=== PATIENT | male | born 1945 | race Caucasian/White ===

== ENCOUNTER → 2020-10-11 14:00 | Outpatient (BNVA) | payer MEDICARE, SELFPAY | PROVIDERS: PCP Family Medicine; Referring Provider Family Medicine; Visit Provider Internal Medicine Pulmonary Disease | DX: J44.9 Chronic obstructive pulmonary disease, unspecified (principal); Z99.81 Dependence on supplemental oxygen; Z87.891 Personal history of nicotine dependence | CPT/HCPCS: 99212 ==

== ENCOUNTER → 2020-11-29 10:42 | Outpatient (BNVA) | payer MEDICARE, SELFPAY | PROVIDERS: PCP Family Medicine; Visit Provider Internal Medicine | DX: I25.10 Atherosclerotic heart disease of native coronary artery without angina pectoris (principal); J44.9 Chronic obstructive pulmonary disease, unspecified; Z99.81 Dependence on supplemental oxygen; I10 Essential (primary) hypertension; E78.5 Hyperlipidemia, unspecified | CPT/HCPCS: 93005; 99212 ==

== ENCOUNTER 2020-12-16 13:11 | Outpatient (REF) | payer MEDICARE, SELFPAY ==
[2020-12-16 14:03] LABS: MANUAL DIFF FLAG NO
[2020-12-16 14:09] LABS: Basophils Percent Auto 0.3 % (0-2); Eosinophils Absolute Auto 0.3 X10*3/uL (0.0-0.4); Eosinophils Percent Auto 2.7 % (0-4); Hematocrit 45.4 % (42-52); Hemoglobin 14.6 g/dl (14.0-18.0); Imm Gran Abs Auto 0.03 X10*3/uL (0.00-0.03); Imm Gran Pct Auto 0.3 % (0.0-0.4); Lymphocytes Absolute Auto 1.9 X10*3/uL (1.2-4.9); Lymphocytes Percent Auto 18.9 % (20-40); Mean Corpuscular HGB Conc 32.2 g/dl (31.0-36.0); Mean Corpuscular Hemoglobin 31.7 pg (27.0-33.0); Mean Corpuscular Volume 98.5 fL (80-98); Mean Platelet Volume 8.9 fL (9.4-12.4); Monocytes Absolute Auto 0.8 X10*3/uL (0.1-1.2); Monocytes Percent Auto 7.7 % (2-11); Neutrophils Percent Auto 70.1 % (45-73); Platelet Count 480 X10*3/uL (160-400); Red Blood Count 4.61 X10*6/uL (4.60-5.80); Red Cell Distribution Width 15.4 % (11.0-16.0)
[2020-12-16 14:38] LABS: Anion Gap 16 (12-20); Blood Urea Nitrogen 25 mg/dL (9-16); Carbon Dioxide 21 mmol/L (22-29); Chloride 108 mmol/L (96-108); Estimated Glomerular Filt Rate > 60; Potassium 4.6 mmol/l (3.3-5.1); Sodium 140 mmol/L (135-145)
== END 2020-12-16 13:12 | disposition home or self-care (01) ==
LOC: HO.HMGCLDS 13:11
PROVIDERS: PCP Family Medicine; Visit Provider Family Medicine
DX: I10 Essential (primary) hypertension (principal); R06.02 Shortness of breath
CPT/HCPCS: 36415; 80051; 82565; 84520; 85025

== ENCOUNTER 2020-12-28 12:21 | Inpatient (IN) | payer MEDICARE, SELFPAY ==
[2020-12-28] VITALS (7 sets, daily range): BP systolic 122–161; BP diastolic 65–93; PULSE 85–97; RESP 18–26; TEMP 36.6–37.4; O2SAT 90–94; BMI 31.0
--- NOTE | ~2020-12-28 | CT_ITS ---
EXAMINATION: CT SINUS WITHOUT CONTRAST CLINICAL INFORMATION: Sinusitis COMPARISON: None TECHNIQUE: Multidetector volumetric imaging of the paranasal sinuses performed without IV contrast. Coronal and sagittal reformatted images are obtained and reviewed. This CT examination was performed using dose optimization techniques as appropriate, variously including the following: *Automated exposure control *Adjustment of mA and/or kV according to patient size (this includes techniques or standardized protocols for targeted exams where dose is matched to indication/reason for exam; i.e. extremities or head) *Use of iterative reconstruction technique DLP: 157 mGy-cm FINDINGS: FRONTAL SINUSES AND DRAINAGE PATHWAYS: Normal. MAXILLARY SINUSES AND DRAINAGE PATHWAYS: Normal. The infundibula are patent. ETHMOID SINUSES: Normal. The ethmoid roofs are symmetric. SPHENOID SINUSES AND DRAINAGE PATHWAYS: Normal. The sphenoid ostia are patent. The carotid canals are covered by bone. NASAL CAVITY/NASOPHARYNX: The nasal cavity is clear. There is leftward nasal septal deviation/spurring. The nasopharynx is symmetric. ADDITIONAL RELEVANT FINDINGS: Multiple teeth are absent.. The TMJs articulate normally. The orbits and skull base soft tissues are unremarkable. The middle ear cavities and mastoid air cells are clear. Limited evaluation demonstrates no acute intracranial findings. CT/CT sinus wo con IMPRESSION: The paranasal sinuses are clear.
--- NOTE | 2020-12-28 12:44 | XR_ITS ---
EXAMINATION: XR CHEST CLINICAL INFORMATION: Fever and shortness of breath COMPARISON: October 21, 2019 TECHNIQUE: AP portable view of the chest was obtained. FINDINGS: There are a few faint patchy regions of density seen within the lower lungs bilaterally which may be inflammatory or infectious in etiology. There is diminished vascularity seen within the upper lobes bilaterally consistent with COPD. No pneumothorax or pleural effusion. Heart normal size. No evidence of pulmonary edema. Status post left shoulder arthroplasty. XR/XR chest 1V IMPRESSION: Faint bibasilar hazy densities which may relate to atelectasis or inflammatory/infectious etiology. COPD.
--- NOTE | 2020-12-28 12:48 | ED_ITS ---
HPI - SOB/Dyspnea General Chief Complaint: Dyspnea <BRY Warren - Last Filed: 12/28/20 18:22> Stated Complaint: SOB,FEVER <BRY Warren - Last Filed: 12/28/20 18:22> Time Seen by Provider: 12/28/20 14:33 <BRY Warren - Last Filed: 12/28/20 18:22> Source: patient <BRY Warren - Last Filed: 12/28/20 18:22> Mode of arrival: ambulatory <BRY Warren - Last Filed: 12/28/20 18:22> Limitations: no limitations <BRY Warren Last Filed: 12/28/20 18:22> History of Present Illness HPI Narrative: Patient presents to ED for shortness of breath 3 days with cough and fever of 100.3 this morning. Patient denies anyone else at home having similar symptoms. Patient has history of COPD and baseline is 3 L of oxygen and 91%. Patient states no body aches, headaches, or chills. Patient denies any chest pain or coughing up blood. EMS states patient O2 saturation room air at home was 84%. <BRY Warren - Last Filed: 12/28/20 18:22> Related Data Home Medications: Home Medications Medication Instructions Recorded Confirmed aspirin 81 mg tablet,delayed 81 mg PO DAILY 10/11/20 12/28/20 release buprenorphine HCl 300 mcg buccal 300 mcg PO BID 10/11/20 12/28/20 film hydrocodone 10 mg-acetaminophen 1 - 2 tab PO Q6H PRN 10/11/20 12/28/20 325 mg tablet lisinopril 5 mg tablet 5 mg PO DAILY 10/11/20 12/28/20 atorvastatin [Lipitor] 10 mg PO BEDTIME 12/28/20 12/28/20 sertraline 50 mg PO DAILY 12/28/20 12/28/20 Previous Rx's Medication Instructions Recorded albuterol sulfate 1 inh INHALATION QID PRN #8.5 g 12/30/20 azithromycin 250 mg PO DAILY 5 Days #5 tab 12/30/20 famotidine 20 mg PO DAILY #30 tab 12/30/20 fluticasone furoate-vilanterol 1 inh INHALATION DAILY #28 ea 12/30/20 [Breo Ellipta] fluticasone propion-salmeterol 1 inh INHALATION BID #60 ea 12/30/20 [Advair Diskus] prednisone 20 mg PO DAILY #10 tab 12/30/20 <BRY Warren Last Filed: 12/28/20 18:22> Allergies/Adverse Reactions: Allergies Allergy/AdvReac Type Severity Reaction Status Date / Time No Known Allergies Allergy Verified 11/29/20 11:01 [No Known Allergies*] <BRY Warren - Last Filed: 12/28/20 18:22> Review of Systems Review of Systems: Yes all other systems are reviewed and are negative <BRY Warren - Last Filed: 12/28/20 18:22> Constitutional: Constitutional: Reports as per HPI, Reports no additional constitutional complaints and Reports fever(s) <BRY Warren Last Filed: 12/28/20 18:22> Eyes: Eyes: Reports as per HPI and Reports no additional eye complaints <BRY Warren Last Filed: 12/28/20 18:22> ENT: Reports system reviewed and no additional complaints, except as documented and Reports as per HPI <BRY Warren Last Filed: 12/28/20 18:22> Cardiovascular: Cardiovascular: Reports as per HPI, Reports no additional cardiovascular complaints and Reports dyspnea <BRY Warren Last Filed: 12/28/20 18:22> Respiratory: Respiratory: Reports as per HPI, Reports no additional respiratory complaints and Reports dyspnea <BRY Wraren Last Filed: 12/28/20 18:22> Gastrointestinal: Gastrointestinal: Reports as per HPI and Reports no additional gastrointestinal complaints <BRY Warren - Last Filed: 12/28/20 18:22> Genitourinary: Genitourinary: Reports no additional male genitourinary complaints and Reports as per HPI <BRY Warren Last Filed: 12/28/20 18:22> Musculoskeletal: Musculoskeletal: Reports no additional musculoskeletal complaints and Reports as per HPI <BRY Warren Last Filed: 12/28/20 18:22> Neurologic: Reports system reviewed and no additional complaints, except as documented and Reports as per HPI <BRY Warren - Last Filed: 12/28/20 18:22> Psychiatric: Psychiatric: Reports no additional psychiatric complaints and Re ports as per HPI <BRY Warren - Last Filed: 12/28/20 18:22> [facility] Past Medical History Medical History: Medical History (Updated 12/30/20 @ 14:24 by Juan Alberto Villafana MD) Atherosclerotic cardiovascular disease Essential hypertension Other and unspecified hyperlipidemia Pulmonary nodule seen on imaging study <BRY Warren - Last Filed: 12/28/20 18:22> Surgical History: Surgical History History of cardiac catheterization (~12/09/19) <BRY Warren - Last Filed: 12/28/20 18:22> Family History Family History: Family History (Updated 11/29/20 @ 10:52 by DEAN Lombardo) Father No problems noted. Mother No problems noted. <BRY Warren - Last Filed: 12/28/20 18:22> Social History Social History: Social History (Updated 10/11/20 @ 14:18 by Piper Irvin MA) Household Members: Family Housing: House Smoking Status: Never smoker Second Hand Smoke Exposure: No service: Yes Current occupational status: retired <BRY Warren - Last Filed: 12/28/20 18:22> Physical Exam Vital Signs: Vital Signs: Last Vital Signs Temp 98.3 F 12/30/20 15:37 Pulse 82 12/30/20 16:28 Resp 16 12/30/20 15:37 BP 137/82 12/30/20 15:37 Pulse Ox 92 12/30/20 15:37 Body Mass Index 31.0 <BRY Warren - Last Filed: 12/28/20 18:22> Vital Signs: Last Vital Signs Temp 98.3 F 12/30/20 15:37 Pulse 82 12/30/20 16:28 Resp 16 12/30/20 15:37 BP 137/82 12/30/20 15:37 Pulse Ox 92 12/30/20 15:37 Body Mass Index 31.0 <Nixon Linder MD - Last Filed: 01/10/21 07:07> Const: General: cooperative, healthy appearing, comfortable, no acute distress, well developed, alert, awake and Physically active <BRY Warren Last Filed: 12/28/20 18:22> Orientation/consciousness: patient oriented x3 <BRY Warren Last Filed: 12/28/20 18:22> HENMT: Head: Yes normal to inspection, Yes No palpable skull fracture present, Yes normocephalic, Yes atraumatic, Yes abrasion, No Serrano's sign, No contusion, No cranial bruits, No hematoma, No laceration, No occipital foramen tenderness, No palpable skull fracture, No raccoon eyes, No scalp tenderness, No Temporal artery tenderness present and No periorbital ecchymosis <BRY Warren Last Filed: 12/28/20 18:22> Eyes: General: appearance normal, both eyes and all related structures <BRY Warren Last Filed: 12/28/20 18:22> Neck: Neck: Yes normal visual inspection, Yes full ROM, Yes no lymphadenopathy, Yes no meningeal signs, Yes trachea midline, Yes supple and No tender <BRY Warren Last Filed: 12/28/20 18:22> Chest: Chest palpation & inspection: normal inspection of the chest and normal palpation of entire chest wall <BRY Warren Last Filed: 12/28/20 18:22> Resp: Effort & Inspection: normal respiratory effort and able to speak in complete sentences <BRY Warren Last Filed: 12/28/20 18:22> Auscultation: clear to auscultation bilaterally <BRY Warren Last Filed: 12/28/20 18:22> Cardio: Jugular venous distension: no JVD <BRY Warren Last Filed: 12/28/20 18:22> Heart sounds: S1 normal heart sound present and S2 normal heart sound present <BRY Warren Last Filed: 12/28/20 18:22> GI: Inspection: Yes normal to inspection and No abdominal wall ecchymosis <BRY Warren Last Filed: 12/28/20 18:22> Palpation (GI): Soft to palpation, not firm, nontender, no guarding and not rigid <BRY Warren - Last Filed: 12/28/20 18:22> : General: No CVA tenderness and Yes no CVA tenderness <BRY Warren - Last Filed: 12/28/20 18:22> Back/Spine/Pelvis: Back: no CVA tenderness, No CVA tenderness and No back tenderness <BRY Warren - Last Filed: 12/28/20 18:22> Skin: General skin exam: no rashes or lesions noted and elasticity normal <BRY Warren - Last Filed: 12/28/20 18:22> Neuro: General: patient oriented x3, no meningeal signs and CN's II-XI intact bilaterally <BRY Warren - Last Filed: 12/28/20 18:22> Cranial nerves: Yes CN's II-XII intact bilaterally <BRY Warren - Last Filed: 12/28/20 18:22> Extrem: Other: Bilateral lower extremity positive for slight swelling and pitting edema. Negative for redness or calf pain <BRY Warren - Last Filed: 12/28/20 18:22> Psych: Appearance: grossly normal, well kempt and not disheveled <BRY Warren Last Filed: 12/28/20 18:22> Course Course Course Narrative: Patient will be worked up for possible COVID. Patient will have also EKG and cardiac evaluation. Patient presently not in any respiratory distress. Patient on 2 L 92% which is baseline. Will start with albuterol inhaler magnesium. <BRY Warren - Last Filed: 12/28/20 18:22> I have reviewed the chart <Nixon Linder MD - Last Filed: 01/10/21 07:07> Reevaluation(s) Reevaluation #1: Patient received Solu-Medrol, ceftriaxone and azithromycin. Patient's lactate came back positive. Patient on rest O2 saturation 91% which is baseline at 3 L. patient COVID start came back negative. Patient was sent for chest CT a to rule out pneumonia and and PE. On ambulation patient's oxygen saturation desaturated to 84% with 3 L of oxygen. Diagnosis COPD exacerbation. EKG does not show any new changes. BNP negative <BRY Warren - Last Filed: 12/28 18:22> Time: 17:12 <BRY Warren - Last Filed: 12/28/20 18:22> Reevaluation #2: Patient will be admitted to the hospital for COPD exacerbation. Patient accepted by hospitalist. Chest CT shows severe COPD and negative for PE <BRY Warren - Last Filed: 12/28/20 18:22> Time: 18:18 <BRY Warren - Last Filed: 12/28/20 18:22> MDM - SOB/Dyspnea MDM Narrative Medical decision making narrative: COPD exacerbation <BRY Warren Last Filed: 12/28/20 18:22> Lab Data Result diagrams: : 12/29/20 06:26 12/29/20 06:26 <BRY Warren - Last Filed: 12/28/20 18:22> Labs: Lab Results 12/28/20 12/28/20 12/28/20 Range/Units 13:24 13:24 13:24 WBC (4.8-10.8) X10*3/uL RBC (4.60-5.80) X10*6/uL Hgb (14.0-18.0) g/dl Hct (42-52) % MCV (80-98) fL MCH (27.0-33.0) pg MCHC (31.0-36.0) g/dl RDW (11.0-16.0) % Plt Count (160-400) X10*3/uL MPV (9.4-12.4) fL Immature Gran % (Auto) (0.0-0.4) % Neut % (Auto) (45-73) % Lymph % (Auto) (20-40) % [place] % (Auto) (2-11) % Eos % (Auto) (0-4) % Baso % (Auto) (0-2) % Lymph # (Auto) (1.2-4.9) X10*3/uL [place] # (Auto) (0.1-1.2) X10*3/uL Eos # (Auto) (0.0-0.4) X10*3/uL Baso # (Auto) (0.0-0.2) X10*3/uL Abs Immat Gran (auto) (0.00-0.03) X10*3/uL Absolute Neuts (auto) (2.0-8.3) X10*3/uL Absolute Nucleated RBC (0.0-0.012) X10*3/uL Nucleated RBC % (auto) (0.0-0.2) /100WBC PT (10.8-13.0) SEC INR (0.9-1.1) APTT (24.1-38.0) SEC Sodium 139 (135-145) mmol/L Potassium 4.9 (3.3-5.1) mmol/L Chloride 106 (96-108) mmol/L Carbon Dioxide 22 (22-29) mmol/L Anion Gap 16 (12-20) BUN 18 H (9-16) mg/dL Creatinine 0.88 (0.5-1.4) mg/dL Estim Creat Clear Calc 85.1 Estimated GFR > 60 Random Glucose 105 (60-115) mg/dL Lactic Acid 2.1 H* (0.5-2.0) mmol/L Lactic Acid Fup @ 2Hr (0.5-2.0) mmol/L Calcium 8.6 (8.4-10.2) mg/dL Ferritin 274 H (20-250) ng/mL Total Bilirubin 1.1 H (0.0-1.0) mg/dL AST 19 (5-37) U/L ALT 12 (0-40) U/L Alkaline Phosphatase 89 (39-117) U/L Lactate Dehydrogenase 270 (118-273) U/L Troponin I High Sens 7.5 (<3.5-35.0) ng/L B-Natriuretic Peptide 81 (<100) pg/mL Total Protein 7.2 (6.5-8.0) g/dL Albumin 3.3 L (3.5-5.0) g/dL Procalcitonin ng/mL Coronavirus (PCR) SARS-CoV-2 (PCR) Influenza Type A (PCR) Influenza Type B (PCR) RSV RNA Qual (PCR) 12/28/20 12/28/20 12/28/20 Range/Units 13:24 13:24 13:24 WBC (4.8-10.8) X10*3/uL RBC (4.60-5.80) X10*6/uL Hgb (14.0-18.0) g/dl Hct (42-52) % MCV (80-98) fL MCH (27.0-33.0) pg MCHC (31.0-36.0) g/dl RDW (11.0-16.0) % Plt Count (160-400) X10*3/uL MPV (9.4-12.4) fL Immature Gran % (Auto) (0.0-0.4) % Neut % (Auto) (45-73) % Lymph % (Auto) (20-40) % [place] % (Auto) (2-11) % Eos % (Auto) (0-4) % Baso % (Auto) (0-2) % Lymph # (Auto) (1.2-4.9) X10*3/uL [place] # (Auto) (0.1-1.2) X10*3/uL Eos # (Auto) (0.0-0.4) X10*3/uL Baso # (Auto) (0.0-0.2) X10*3/uL Abs Immat Gran (auto) (0.00-0.03) X10*3/uL Absolute Neuts (auto) (2.0-8.3) X10*3/uL Absolute Nucleated RBC (0.0-0.012) X10*3/uL Nucleated RBC % (auto) (0.0-0.2) /100WBC PT 15.1 H (10.8-13.0) SEC INR 1.3 H (0.9-1.1) APTT 38.1 H (24.1-38.0) SEC Sodium (135-145) mmol/L Potassium (3.3-5.1) mmol/L Chloride (96-108) mmol/L Carbon Dioxide (22-29) mmol/L Anion Gap (12-20) BUN (9-16) mg/dL Creatinine (0.5-1.4) mg/dL Estim Creat Clear Calc Estimated GFR Random Glucose (60-115) mg/dL Lactic Acid (0.5-2.0) mmol/L Lactic Acid Fup @ 2Hr (0.5-2.0) mmol/L Calcium (8.4-10.2) mg/dL Ferritin (20-250) ng/mL Total Bilirubin (0.0-1.0) mg/dL AST (5-37) U/L ALT (0-40) U/L Alkaline Phosphatase (39-117) U/L Lactate Dehydrogenase (118-273) U/L Troponin I High Sens (<3.5-35.0) ng/L B-Natriuretic Peptide (<100) pg/mL Total Protein (6.5-8.0) g/dL Albumin (3.5-5.0) g/dL Procalcitonin 0.09 ng/mL Coronavirus (PCR) Cancelled SARS-CoV-2 (PCR) Influenza Type A (PCR) Cancelled Influenza Type B (PCR) Cancelled RSV RNA Qual (PCR) Cancelled 12/28/20 12/28/20 12/28/20 Range/Units 13:25 13:37 16:07 WBC 10.9 H (4.8-10.8) X10*3/uL RBC 4.51 L (4.60-5.80) X10*6/uL Hgb 14.2 (14.0-18.0) g/dl Hct 43.5 (42-52) % MCV 96.5 (80-98) fL MCH 31.5 (27.0-33.0) pg MCHC 32.6 (31.0-36.0) g/dl RDW 15.9 (11.0-16.0) % Plt Count 514 H (160-400) X10*3/uL MPV 8.7 L (9.4-12.4) fL Immature Gran % (Auto) 0.4 (0.0-0.4) % Neut % (Auto) 72.6 (45-73) % Lymph % (Auto) 17.6 L (20-40) % [place] % (Auto) 7.0 (2-11) % Eos % (Auto) 1.9 (0-4) % Baso % (Auto) 0.5 (0-2) % Lymph # (Auto) 1.9 (1.2-4.9) X10*3/uL [place] # (Auto) 0.8 (0.1-1.2) X10*3/uL Eos # (Auto) 0.2 (0.0-0.4) X10*3/uL Baso # (Auto) 0.1 (0.0-0.2) X10*3/uL Abs Immat Gran (auto) 0.04 H (0.00-0.03) X10*3/uL Absolute Neuts (auto) 7.9 (2.0-8.3) X10*3/uL Absolute Nucleated RBC 0.000 (0.0-0.012) X10*3/uL Nucleated RBC % (auto) 0.0 (0.0-0.2) /100WBC PT (10.8-13.0) SEC INR (0.9-1.1) APTT (24.1-38.0) SEC Sodium (135-145) mmol/L Potassium (3.3-5.1) mmol/L Chloride (96-108) mmol/L Carbon Dioxide (22-29) mmol/L Anion Gap (12-20) BUN (9-16) mg/dL Creatinine (0.5-1.4) mg/dL Estim Creat Clear Calc Estimated GFR Random Glucose (60-115) mg/dL Lactic Acid (0.5-2.0) mmol/L Lactic Acid Fup @ 2Hr (0.5-2.0) mmol/L Calcium (8.4-10.2) mg/dL Ferritin (20-250) ng/mL Total Bilirubin (0.0-1.0) mg/dL AST (5-37) U/L ALT (0-40) U/L Alkaline Phosphatase (39-117) U/L Lactate Dehydrogenase (118-273) U/L Troponin I High Sens (<3.5-35.0) ng/L B-Natriuretic Peptide (<100) pg/mL Total Protein (6.5-8.0) g/dL Albumin (3.5-5.0) g/dL Procalcitonin ng/mL Coronavirus (PCR) NEGATIVE SARS-CoV-2 (PCR) Cancelled Influenza Type A (PCR) NEGATIVE Influenza Type B (PCR) NEGATIVE RSV RNA Qual (PCR) NEGATIVE 12/28/20 12/28/20 Range/Units 16:11 16:11 WBC (4.8-10.8) X10*3/uL RBC (4.60-5.80) X10*6/uL Hgb (14.0-18.0) g/dl Hct (42-52) % MCV (80-98) fL MCH (27.0-33.0) pg MCHC (31.0-36.0) g/dl RDW (11.0-16.0) % Plt Count (160-400) X10*3/uL MPV (9.4-12.4) fL Immature Gran % (Auto) (0.0-0.4) % Neut % (Auto) (45-73) % Lymph % (Auto) (20-40) % [place] % (Auto) (2-11) % Eos % (Auto) (0-4) % Baso % (Auto) (0-2) % Lymph # (Auto) (1.2-4.9) X10*3/uL [place] # (Auto) (0.1-1.2) X10*3/uL Eos # (Auto) (0.0-0.4) X10*3/uL Baso # (Auto) (0.0-0.2) X10*3/uL Abs Immat Gran (auto) (0.00-0.03) X10*3/uL Absolute Neuts (auto) (2.0-8.3) X10*3/uL Absolute Nucleated RBC (0.0-0.012) X10*3/uL Nucleated RBC % (auto) (0.0-0.2) /100WBC PT (10.8-13.0) SEC INR (0.9-1.1) APTT (24.1-38.0) SEC Sodium (135-145) mmol/L Potassium (3.3-5.1) mmol/L Chloride (96-108) mmol/L Carbon Dioxide (22-29) mmol/L Anion Gap (12-20) BUN (9-16) mg/dL Creatinine (0.5-1.4) mg/dL Estim Creat Clear Calc Estimated GFR Random Glucose (60-115) mg/dL Lactic Acid (0.5-2.0) mmol/L Lactic Acid Fup @ 2Hr 1.3 (0.5-2.0) mmol/L Calcium (8.4-10.2) mg/dL Ferritin (20-250) ng/mL Total Bilirubin (0.0-1.0) mg/dL AST (5-37) U/L ALT (0-40) U/L Alkaline Phosphatase (39-117) U/L Lactate Dehydrogenase (118-273) U/L Troponin I High Sens 6.5 (<3.5-35.0) ng/L B-Natriuretic Peptide (<100) pg/mL Total Protein (6.5-8.0) g/dL Albumin (3.5-5.0) g/dL Procalcitonin ng/mL Coronavirus (PCR) SARS-CoV-2 (PCR) Influenza Type A (PCR) Influenza Type B (PCR) RSV RNA Qual (PCR) <BRY Warren - Last Filed: 12/28/20 18:22> Lab Results 12/28/20 12/28/20 12/28/20 Range/Units 13:24 13:24 13:24 WBC (4.8-10.8) X10*3/uL RBC (4.60-5.80) X10*6/uL Hgb (14.0-18.0) g/dl Hct (42-52) % MCV (80-98) fL MCH (27.0-33.0) pg MCHC (31.0-36.0) g/dl RDW (11.0-16.0) % Plt Count (160-400) X10*3/uL MPV (9.4-12.4) fL Immature Gran % (Auto) (0.0-0.4) % Neut % (Auto) (45-73) % Lymph % (Auto) (20-40) % [place] % (Auto) (2-11) % Eos % (Auto) (0-4) % Baso % (Auto) (0-2) % Lymph # (Auto) (1.2-4.9) X10*3/uL [place] # (Auto) (0.1-1.2) X10*3/uL Eos # (Auto) (0.0-0.4) X10*3/uL Baso # (Auto) (0.0-0.2) X10*3/uL Abs Immat Gran (auto) (0.00-0.03) X10*3/uL Absolute Neuts (auto) (2.0-8.3) X10*3/uL Absolute Nucleated RBC (0.0-0.012) X10*3/uL Nucleated RBC % (auto) (0.0-0.2) /100WBC PT (10.8-13.0) SEC INR (0.9-1.1) APTT (24.1-38.0) SEC Sodium 139 (135-145) mmol/L Potassium 4.9 (3.3-5.1) mmol/L Chloride 106 (96-108) mmol/L Carbon Dioxide 22 (22-29) mmol/L Anion Gap 16 (12-20) BUN 18 H (9-16) mg/dL Creatinine 0.88 (0.5-1.4) mg/dL Estim Creat Clear Calc 85.1 Estimated GFR > 60 Random Glucose 105 (60-115) mg/dL Lactic Acid 2.1 H* (0.5-2.0) mmol/L Lactic Acid Fup @ 2Hr (0.5-2.0) mmol/L Calcium 8.6 (8.4-10.2) mg/dL Ferritin 274 H (20-250) ng/mL Total Bilirubin 1.1 H (0.0-1.0) mg/dL AST 19 (5-37) U/L ALT 12 (0-40) U/L Alkaline Phosphatase 89 (39-117) U/L Lactate Dehydrogenase 270 (118-273) U/L Troponin I High Sens 7.5 (<3.5-35.0) ng/L B-Natriuretic Peptide 81 (<100) pg/mL Total Protein 7.2 (6.5-8.0) g/dL Albumin 3.3 L (3.5-5.0) g/dL Procalcitonin ng/mL Coronavirus (PCR) SARS-CoV-2 (PCR) Influenza Type A (PCR) Influenza Type B (PCR) RSV RNA Qual (PCR) 12/28/20 12/28/20 12/28/20 Range/Units 13:24 13:24 13:24 WBC (4.8-10.8) X10*3/uL RBC (4.60-5.80) X10*6/uL Hgb (14.0-18.0) g/dl Hct (42-52) % MCV (80-98) fL MCH (27.0-33.0) pg MCHC (31.0-36.0) g/dl RDW (11.0-16.0) % Plt Count (160-400) X10*3/uL MPV (9.4-12.4) fL Immature Gran % (Auto) (0.0-0.4) % Neut % (Auto) (45-73) % Lymph % (Auto) (20-40) % [place] % (Auto) (2-11) % Eos % (Auto) (0-4) % Baso % (Auto) (0-2) % Lymph # (Auto) (1.2-4.9) X10*3/uL [place] # (Auto) (0.1-1.2) X10*3/uL Eos # (Auto) (0.0-0.4) X10*3/uL Baso # (Auto) (0.0-0.2) X10*3/uL Abs Immat Gran (auto) (0.00-0.03) X10*3/uL Absolute Neuts (auto) (2.0-8.3) X10*3/uL Absolute Nucleated RBC (0.0-0.012) X10*3/uL Nucleated RBC % (auto) (0.0-0.2) /100WBC PT 15.1 H (10.8-13.0) SEC INR 1.3 H (0.9-1.1) APTT 38.1 H (24.1-38.0) SEC Sodium (135-145) mmol/L Potassium (3.3-5.1) mmol/L Chloride (96-108) mmol/L Carbon Dioxide (22-29) mmol/L Anion Gap (12-20) BUN (9-16) mg/dL Creatinine (0.5-1.4) mg/dL Estim Creat Clear Calc Estimated GFR Random Glucose (60-115) mg/dL Lactic Acid (0.5-2.0) mmol/L Lactic Acid Fup @ 2Hr (0.5-2.0) mmol/L Calcium (8.4-10.2) mg/dL Ferritin (20-250) ng/mL Total Bilirubin (0.0-1.0) mg/dL AST (5-37) U/L ALT (0-40) U/L Alkaline Phosphatase (39-117) U/L Lactate Dehydrogenase (118-273) U/L Troponin I High Sens (<3.5-35.0) ng/L B-Natriuretic Peptide (<100) pg/mL Total Protein (6.5-8.0) g/dL Albumin (3.5-5.0) g/dL Procalcitonin 0.09 ng/mL Coronavirus (PCR) Cancelled SARS-CoV-2 (PCR) Influenza Type A (PCR) Cancelled Influenza Type B (PCR) Cancelled RSV RNA Qual (PCR) Cancelled 12/28/20 12/28/20 12/28/20 Range/Units 13:25 13:37 16:07 WBC 10.9 H (4.8-10.8) X10*3/uL RBC 4.51 L (4.60-5.80) X10*6/uL Hgb 14.2 (14.0-18.0) g/dl Hct 43.5 (42-52) % MCV 96.5 (80-98) fL MCH 31.5 (27.0-33.0) pg MCHC 32.6 (31.0-36.0) g/dl RDW 15.9 (11.0-16.0) % Plt Count 514 H (160-400) X10*3/uL MPV 8.7 L (9.4-12.4) fL Immature Gran % (Auto) 0.4 (0.0-0.4) % Neut % (Auto) 72.6 (45-73) % Lymph % (Auto) 17.6 L (20-40) % [place] % (Auto) 7.0 (2-11) % Eos % (Auto) 1.9 (0-4) % Baso % (Auto) 0.5 (0-2) % Lymph # (Auto) 1.9 (1.2-4.9) X10*3/uL [place] # (Auto) 0.8 (0.1-1.2) X10*3/uL Eos # (Auto) 0.2 (0.0-0.4) X10*3/uL Baso # (Auto) 0.1 (0.0-0.2) X10*3/uL Abs Immat Gran (auto) 0.04 H (0.00-0.03) X10*3/uL Absolute Neuts (auto) 7.9 (2.0-8.3) X10*3/uL Absolute Nucleated RBC 0.000 (0.0-0.012) X10*3/uL Nucleated RBC % (auto) 0.0 (0.0-0.2) /100WBC PT (10.8-13.0) SEC INR (0.9-1.1) APTT (24.1-38.0) SEC Sodium (135-145) mmol/L Potassium (3.3-5.1) mmol/L Chloride (96-108) mmol/L Carbon Dioxide (22-29) mmol/L Anion Gap (12-20) BUN (9-16) mg/dL Creatinine (0.5-1.4) mg/dL Estim Creat Clear Calc Estimated GFR Random Glucose (60-115) mg/dL Lactic Acid (0.5-2.0) mmol/L Lactic Acid Fup @ 2Hr (0.5-2.0) mmol/L Calcium (8.4-10.2) mg/dL Ferritin (20-250) ng/mL Total Bilirubin (0.0-1.0) mg/dL AST (5-37) U/L ALT (0-40) U/L Alkaline Phosphatase (39-117) U/L Lactate Dehydrogenase (118-273) U/L Troponin I High Sens (<3.5-35.0) ng/L B-Natriuretic Peptide (<100) pg/mL Total Protein (6.5-8.0) g/dL Albumin (3.5-5.0) g/dL Procalcitonin ng/mL Coronavirus (PCR) NEGATIVE SARS-CoV-2 (PCR) Cancelled Influenza Type A (PCR) NEGATIVE Influenza Type B (PCR) NEGATIVE RSV RNA Qual (PCR) NEGATIVE 12/28/20 12/28/20 Range/Units 16:11 16:11 WBC (4.8-10.8) X10*3/uL RBC (4.60-5.80) X10*6/uL Hgb (14.0-18.0) g/dl Hct (42-52) % MCV (80-98) fL MCH (27.0-33.0) pg MCHC (31.0-36.0) g/dl RDW (11.0-16.0) % Plt Count (160-400) X10*3/uL MPV (9.4-12.4) fL Immature Gran % (Auto) (0.0-0.4) % Neut % (Auto) (45-73) % Lymph % (Auto) (20-40) % [place] % (Auto) (2-11) % Eos % (Auto) (0-4) % Baso % (Auto) (0-2) % Lymph # (Auto) (1.2-4.9) X10*3/uL [place] # (Auto) (0.1-1.2) X10*3/uL Eos # (Auto) (0.0-0.4) X10*3/uL Baso # (Auto) (0.0-0.2) X10*3/uL Abs Immat Gran (auto) (0.00-0.03) X10*3/uL Absolute Neuts (auto) (2.0-8.3) X10*3/uL Absolute Nucleated RBC (0.0-0.012) X10*3/uL Nucleated RBC % (auto) (0.0-0.2) /100WBC PT (10.8-13.0) SEC INR (0.9-1.1) APTT (24.1-38.0) SEC Sodium (135-145) mmol/L Potassium (3.3-5.1) mmol/L Chloride (96-108) mmol/L Carbon Dioxide (22-29) mmol/L Anion Gap (12-20) BUN (9-16) mg/dL Creatinine (0.5-1.4) mg/dL Estim Creat Clear Calc Estimated GFR Random Glucose (60-115) mg/dL Lactic Acid (0.5-2.0) mmol/L Lactic Acid Fup @ 2Hr 1.3 (0.5-2.0) mmol/L Calcium (8.4-10.2) mg/dL Ferritin (20-250) ng/mL Total Bilirubin (0.0-1.0) mg/dL AST (5-37) U/L ALT (0-40) U/L Alkaline Phosphatase (39-117) U/L Lactate Dehydrogenase (118-273) U/L Troponin I High Sens 6.5 (<3.5-35.0) ng/L B-Natriuretic Peptide (<100) pg/mL Total Protein (6.5-8.0) g/dL Albumin (3.5-5.0) g/dL Procalcitonin ng/mL Coronavirus (PCR) SARS-CoV-2 (PCR) Influenza Type A (PCR) Influenza Type B (PCR) RSV RNA Qual (PCR) <Nixon Linder MD - Last Filed: 01/10/21 07:07> ECG Data Interpretation: Sinus rhythm with premature atrial complexes. T-wave inversions in V1 V2 V3 which is old. Ventricular rate 76. Pr interval 190. QRS 88. QTC 461. Negative STEMI. no new chnages <BRY Warren - Last Filed: 12/28/20 18:22> Discharge Plan Discharge Clinical Impression: Severe chronic obstructive pulmonary disease <BRY Warren - Last Filed: 12/28/20 18:22> Patient Disposition: Admitted As Inpatient <BRY Warren - Last Filed: 12/28/20 18:22> Interventions: Admission Worksheet (ED) Last Done: 12/29/20 13:14 <BRY Warren - Last Filed: 12/28/20 18:22> Discharge Date/Time: 12/29/20 13:16 <BRY Warren - Last Filed: 12/28/20 18:22>
--- NOTE | 2020-12-28 12:56 | ECG_ITS ---
Test Reason : DIFFICULTY BREATHING Blood Pressure : / mmHG Vent. Rate : 076 BPM Atrial Rate : 076 BPM P-R Int : 190 ms QRS Dur : 088 ms QT Int : 410 ms P-R-T Axes : 028 027 016 degrees QTc Int : 461 ms Sinus rhythm with Premature atrial complexes ST & T wave abnormality, consider anterior ischemia Prolonged QT Abnormal ECG When compared with ECG of 23-JUN-2020 10:39, Premature atrial complexes are now Present Referred By: Bakari Khan Electronically Signed By:ERASMO VILLARREAL
[2020-12-28] MEDS: Albuterol Sulfate 90 MCG 8 GM INHALER 4 PUFF INHALE (12:58)
[2020-12-28] MEDS: Magnesium Sulfate/H2O 2 GM/50 ML PIGGYBACK IV (13:27)
[2020-12-28 13:30] LABS: MANUAL DIFF FLAG NO
[2020-12-28 13:36] LABS: Basophils Absolute Auto 0.1 X10*3/uL (0.0-0.2); Basophils Percent Auto 0.5 % (0-2); Eosinophils Absolute Auto 0.2 X10*3/uL (0.0-0.4); Eosinophils Percent Auto 1.9 % (0-4); Hematocrit 43.5 % (42-52); Hemoglobin 14.2 g/dl (14.0-18.0); Imm Gran Abs Auto 0.04 X10*3/uL (0.00-0.03); Imm Gran Pct Auto 0.4 % (0.0-0.4); Lymphocytes Absolute Auto 1.9 X10*3/uL (1.2-4.9); Lymphocytes Percent Auto 17.6 % (20-40); Mean Corpuscular HGB Conc 32.6 g/dl (31.0-36.0); Mean Corpuscular Hemoglobin 31.5 pg (27.0-33.0); Mean Corpuscular Volume 96.5 fL (80-98); Mean Platelet Volume 8.7 fL (9.4-12.4); Monocytes Absolute Auto 0.8 X10*3/uL (0.1-1.2); Neutrophils Absolute Auto 7.9 X10*3/uL (2.0-8.3); Neutrophils Percent Auto 72.6 % (45-73); Platelet Count 514 X10*3/uL (160-400); Red Blood Count 4.51 X10*6/uL (4.60-5.80); Red Cell Distribution Width 15.9 % (11.0-16.0); White Blood Count 10.9 X10*3/uL (4.8-10.8)
[2020-12-28 13:40] LABS: INTERNATIONAL NORM RATIO 1.3 (0.9-1.1); Prothrombin Time 15.1 SEC (10.8-13.0)
[2020-12-28 13:43] LABS: Partial Thromboplastin Time 38.1 SEC (24.1-38.0)
[2020-12-28 14:10] LABS: Lactic Acid 2.1 mmol/L (0.5-2.0)
[2020-12-28 14:11] LABS: Alanine Aminotransferase 12 U/L (0-40); Albumin Level 3.3 g/dL (3.5-5.0); Alkaline Phosphatase 89 U/L (39-117); Anion Gap 16 (12-20); Aspartate Amino Transferase 19 U/L (5-37); B Type Natriuretic Peptide 81 pg/mL (<100); Bilirubin Total 1.1 mg/dL (0.0-1.0); Blood Urea Nitrogen 18 mg/dL (9-16); Calcium 8.6 mg/dL (8.4-10.2); Carbon Dioxide 22 mmol/L (22-29); Chloride 106 mmol/L (96-108); Creatinine Clr Calc Pharmacy 85.1; Estimated Glomerular Filt Rate > 60; Glucose Random 105 mg/dL (60-115); Lactate Dehydrogenase 270 U/L (118-273); Potassium 4.9 mmol/L (3.3-5.1); Sodium 139 mmol/L (135-145); Total Protein 7.2 g/dL (6.5-8.0); Troponin-I High Sensitivity 7.5 ng/L (<3.5-35.0)
--- NOTE | 2020-12-28 14:13 | PC.NURSE ---
Pt mildly sob but remains >90%- 93% on 3.5-4 liters. Blood drawn, awabbed for covid and EKG obtained. Magnesium given. Pt does not appear to be in any significant distress at this time. Awaiting lab results
--- NOTE | 2020-12-28 14:20 | CT_ITS ---
EXAMINATION: CT ANGIOGRAM OF THE CHEST WITH AND WITHOUT CONTRAST (CT PULMONARY ANGIOGRAM FOR PE) CLINICAL INFORMATION: Pneumonia? Covid? PE? COMPARISON: None TECHNIQUE: Prior to contrast administration, noncontrast localization images were obtained. Subsequently, multidetector volumetric imaging was performed from the thoracic inlet to below the diaphragms following the administration of 80 mL Omnipaque 350 intravenous contrast. No contrast reaction reported. Sagittal, coronal, and MIP oblique sagittal reformatted images were obtained on the CT workstation, uploaded to PACS, and reviewed. This CT examination was performed using dose optimization techniques as appropriate, variously including the following: *Automated exposure control *Adjustment of mA and/or kV according to patient size (this includes techniques or standardized protocols for targeted exams where dose is matched to indication/reason for exam; i.e. extremities or head) *Use of iterative reconstruction technique Total exam dose-length product 630mGy-cm FINDINGS: QUALITY OF STUDY/CONTRAST BOLUS: Satisfactory. PULMONARY ARTERIES: No central or segmental pulmonary emboli. THORACIC AORTA: No aneurysm or dissection. LUNG: Diffuse emphysematous change of both lungs are seen with patchy ill-defined nodular density seen in the periphery of lower lobes. A 6 mm nodule right lower lobe axial image 43/5, 7 mm nodule left lower lobe image 44/5, 6 mm nodule left lower lobe axial image 32/5, cavitary nodule 9 mm right lower lobe axial image 39/5. There is bibasilar dependent atelectasis. PLEURA: No pleural effusion or pneumothorax. MEDIASTINUM: The heart size and the great vessels are normal caliber. There are coronary artery calcifications present. There is no pericardial effusion. There are reactive lymph nodes in the mediastinum. No evidence of septal bowing or right heart strain. CHEST WALL/AXILLA: No axillary or internal mammary lymphadenopathy. OSSEOUS STRUCTURES: There is moderate ventral spondylosis throughout mid and lower dorsal spine. UPPER ABDOMEN: Visualized liver, spleen, pancreas and bilateral adrenal glands are unremarkable. No reflux of contrast into the hepatic veins to suggest elevated right heart pressures. CT/CT angio chest PE protocol IMPRESSION: No evidence of PE. No evidence of aortic aneurysm. Diffuse emphysema with multiple bilateral small pulmonary nodules and likely a cavitary nodule right lower lobe. Bibasilar atelectasis. No acute consolidation seen. VTE: Negative.
[2020-12-28 14:25] LABS: Influenza A PCR NEGATIVE (Negative); Influenza B PCR NEGATIVE (Negative); Resp Syncy Virus RNA Qual PCR NEGATIVE (Negative); SARS COV2 PCR INHOUSE NEGATIVE (Negative)
[2020-12-28 14:27] LABS: Procalcitonin 0.09 ng/mL
[2020-12-28 14:28] LABS: Ferritin 274 ng/mL (20-250)
[2020-12-28] MEDS: iohexoL 350 MG/ML 100 ML INFUS..BTL IV (14:50)
[2020-12-28] MEDS: cefTRIAXone sodium 1 GM in 0.9 % Sodium Chloride 50 ML IV (15:18)
[2020-12-28] MEDS: 0.9 % Sodium Chloride 2,857.62 ML 2857.62 ML IVCONT (15:20)
[2020-12-28] MEDS: methylPREDNISolone Sod Succ/PF 125 MG/2 ML VIAL IVPUSH (15:25)
[2020-12-28 15:29] LABS: Reflex Lactate? Lactic Acid Added
[2020-12-28] MEDS: Azithromycin 500 MG in 0.9 % Sodium Chloride 250 ML 125 MG IV (16:20)
[2020-12-28 16:48] LABS: ~Lactic Acid-LAB USE ONLY 1.3 mmol/L (0.5-2.0)
[2020-12-28 16:58] LABS: Troponin-I High Sensitivity 6.5 ng/L (<3.5-35.0)
--- NOTE | 2020-12-28 17:34 | PC.NURSE ---
Pt remains on 4liters NC and while at rest his sats are 90-93%. He was ambulated with 3liters of oxygen which is his baseline amount of o2 and his sats dropped to 77% and pt was very sob with labored breathing.
[2020-12-28] MEDS: oxyCODONE HCl Immed Release 5 MG TABLET 10 MG PO (18:23)
--- NOTE | 2020-12-28 19:50 | PC.NURSE ---
Patient ambulated to bathroom with 5L nasal cannula O2. Steady gait.
[2020-12-28] MEDS: Enoxaparin Sodium 40 MG/0.4 ML SYRINGE SUBCUT (19:59)
[2020-12-28] MEDS: Atorvastatin Calcium 10 MG TABLET PO (19:59)
--- NOTE | 2020-12-28 20:16 | PM.IMHP ---
History of Present Illness Date of Service: 12/28/20 Chief Complaint: Shortness of breath 75-year-old male with a past medical history of COPD on 3 L of oxygen at baseline, baseline oxygen saturation between 90-92%, history of opiate dependence, hypertension, anxiety, depression presented to the hospital with a chief complaint of shortness of breath associated with cough and low-grade fever. Mentioned that he has been having these symptoms for the past 3 days. Denies any numbness tingling. Denies any chest pain palpitations. Per EMS is room air home oxygen saturation was 84%. Patient denies any GI or symptoms. Review of all other systems is negative except mentioned above ER course: Per ER team patient was saturating in mid 80s on ambulation; patient was given Solu-Medrol, ceftriaxone azithromycin. CT scan showed no evidence of PE. EKG did not show any new changes. Troponins negative. Admitted to the hospital under impression of COPD exacerbation. [facility] Medical History Atherosclerotic cardiovascular disease Essential hypertension Other and unspecified hyperlipidemia Family History (Updated 11/29/20 @ 10:52 by DEAN Lombardo) Father No problems noted. Mother No problems noted. Surgical History History of cardiac catheterization (~12/09/19) Social History (Updated 10/11/20 @ 14:18 by Piper Irvin MA) Smoking Status: Former smoker Advance Directives: No Advance Directives Information Provided: No Meds Allergies Allergy/AdvReac Type Severity Reaction Status Date / Time No Known Allergies Allergy Verified 11/29/20 11:01 [No Known Allergies*] Home Medications Medication Instructions Recorded Confirmed Type aspirin 81 mg tablet,delayed 81 mg PO DAILY 10/11/20 12/28/20 History release buprenorphine HCl 300 mcg buccal 300 mcg PO BID 10/11/20 12/28/20 History film hydrocodone 10 mg-acetaminophen 1 - 2 tab PO Q6H PRN 10/11/20 12/28/20 History 325 mg tablet lisinopril 5 mg tablet 5 mg PO DAILY 10/11/20 12/28/20 History amoxicillin-pot clavulanate 1 tab PO BID 12/28/20 12/28/20 History [Augmentin] atorvastatin [Lipitor] 10 mg PO BEDTIME 12/28/20 12/28/20 History sertraline 50 mg PO DAILY 12/28/20 12/28/20 History Physical Exam Vital Signs and Narrative: Vital Signs: Last Vital Signs Temp 98 F 12/28/20 13:31 Pulse 86 12/28/20 19:08 Resp 18 12/28/20 19:08 BP 142/86 H 12/28/20 19:08 Pulse Ox 93 12/28/20 19:08 Body Mass Index 31.0 Gen: Appears be in no acute distress. Speaks in full sentences HEENT: NCAT, Moist mucosa. Pulmonary: Course breath sounds, fair air entry CVS: Normal S1-S2 Abdomen: BS+, Soft, Nontender Extremities: Warm well perfused Neuro: Alert and awake. Results Labs CBC and Chem 7: 12/28/20 13:25 12/28/20 13:24 Labs: Laboratory Results - last 24 hr 12/28/20 12/28/20 12/28/20 13:24 13:24 13:24 MCV MCH MCHC RDW Plt Count MPV Immature Gran % (Auto) Neut % (Auto) Lymph % (Auto) [place] % (Auto) Eos % (Auto) Baso % (Auto) Lymph # (Auto) [place] # (Auto) Eos # (Auto) Baso # (Auto) Abs Immat Gran (auto) Absolute Neuts (auto) Absolute Nucleated RBC Nucleated RBC % (auto) PT INR APTT Anion Gap 16 Estim Creat Clear Calc 85.1 Estimated GFR > 60 Random Glucose 105 Lactic Acid 2.1 H* Lactic Acid Fup @ 2Hr Calcium 8.6 Ferritin 274 H Total Bilirubin 1.1 H AST 19 ALT 12 Alkaline Phosphatase 89 Lactate Dehydrogenase 270 Troponin I High Sens 7.5 B-Natriuretic Peptide 81 Total Protein 7.2 Albumin 3.3 L Procalcitonin Coronavirus (PCR) SARS-CoV-2 (PCR) Influenza Type A (PCR) Influenza Type B (PCR) RSV RNA Qual (PCR) 12/28/20 12/28/20 12/28/20 13:24 13:24 13:24 MCV MCH MCHC RDW Plt Count MPV Immature Gran % (Auto) Neut % (Auto) Lymph % (Auto) [place] % (Auto) Eos % (Auto) Baso % (Auto) Lymph # (Auto) [place] # (Auto) Eos # (Auto) Baso # (Auto) Abs Immat Gran (auto) Absolute Neuts (auto) Absolute Nucleated RBC Nucleated RBC % (auto) PT 15.1 H INR 1.3 H APTT 38.1 H Anion Gap Estim Creat Clear Calc Estimated GFR Random Glucose Lactic Acid Lactic Acid Fup @ 2Hr Calcium Ferritin Total Bilirubin AST ALT Alkaline Phosphatase Lactate Dehydrogenase Troponin I High Sens B-Natriuretic Peptide Total Protein Albumin Procalcitonin 0.09 Coronavirus (PCR) Cancelled SARS-CoV-2 (PCR) Influenza Type A (PCR) Cancelled Influenza Type B (PCR) Cancelled RSV RNA Qual (PCR) Cancelled 12/28/20 12/28/20 12/28/20 13:25 13:37 16:07 MCV 96.5 MCH 31.5 MCHC 32.6 RDW 15.9 Plt Count 514 H MPV 8.7 L Immature Gran % (Auto) 0.4 Neut % (Auto) 72.6 Lymph % (Auto) 17.6 L [place] % (Auto) 7.0 Eos % (Auto) 1.9 Baso % (Auto) 0.5 Lymph # (Auto) 1.9 [place] # (Auto) 0.8 Eos # (Auto) 0.2 Baso # (Auto) 0.1 Abs Immat Gran (auto) 0.04 H Absolute Neuts (auto) 7.9 Absolute Nucleated RBC 0.000 Nucleated RBC % (auto) 0.0 PT INR APTT Anion Gap Estim Creat Clear Calc Estimated GFR Random Glucose Lactic Acid Lactic Acid Fup @ 2Hr Calcium Ferritin Total Bilirubin AST ALT Alkaline Phosphatase Lactate Dehydrogenase Troponin I High Sens B-Natriuretic Peptide Total Protein Albumin Procalcitonin Coronavirus (PCR) NEGATIVE SARS-CoV-2 (PCR) Cancelled Influenza Type A (PCR) NEGATIVE Influenza Type B (PCR) NEGATIVE RSV RNA Qual (PCR) NEGATIVE 12/28/20 12/28/20 16:11 16:11 MCV MCH MCHC RDW Plt Count MPV Immature Gran % (Auto) Neut % (Auto) Lymph % (Auto) [place] % (Auto) Eos % (Auto) Baso % (Auto) Lymph # (Auto) [place] # (Auto) Eos # (Auto) Baso # (Auto) Abs Immat Gran (auto) Absolute Neuts (auto) Absolute Nucleated RBC Nucleated RBC % (auto) PT INR APTT Anion Gap Estim Creat Clear Calc Estimated GFR Random Glucose Lactic Acid Lactic Acid Fup @ 2Hr 1.3 Calcium Ferritin Total Bilirubin AST ALT Alkaline Phosphatase Lactate Dehydrogenase Troponin I High Sens 6.5 B-Natriuretic Peptide Total Protein Albumin Procalcitonin Coronavirus (PCR) SARS-CoV-2 (PCR) Influenza Type A (PCR) Influenza Type B (PCR) RSV RNA Qual (PCR) Imaging Radiologist's Impressions: Impressions Chest X-Ray 12/28/20 12:44 IMPRESSION: Faint bibasilar hazy densities which may relate to atelectasis or inflammatory/infectious etiology. COPD. Chest CTA 12/28/20 14:20 IMPRESSION: No evidence of PE. No evidence of aortic aneurysm. Diffuse emphysema with multiple bilateral small pulmonary nodules and likely a cavitary nodule right lower lobe. Bibasilar atelectasis. No acute consolidation seen. VTE: Negative. Assessment and Plan (1) COPD with exacerbation: Status: Acute 75-year-old male with a past medical history of hypertension, COPD on home oxygen, hyperlipidemia, anxiety, depression, opiate dependence presented to the hospital with a chief complaint of shortness of breath/cough. Noted to be in COPD exacerbation. Admitted to the hospital for further management. COPD exacerbation: Will give the patient Solu-Medrol 60 mg IV t.i.d. Azithromycin 500 mg daily Nebulizations standing and p.r.n. Supplemental oxygen with goal saturation of 93% COVID-19 negative Lactate improved URI/question sinus infection: Will obtain CT sinus-> If results concerning to change antibiotics to Unasyn. A Hypertension/hyperlipidemia: Continue home medications Patient is on buprenorphine: Will defer to the a.m. team to confirm and resume accordingly. DVT prophylaxis: Lovenox Full code
[2020-12-28] MEDS: Albuterol/Iprat 2.5/0.5MG 3 ML AMPUL.NEB INHALE (20:31)
--- NOTE | 2020-12-28 21:24 | PC.NURSE ---
Patient eating at bedside. Pending room admission. Patient aware of plan.
--- NOTE | 2020-12-28 23:14 | PC.NURSE ---
Patient requesting pain medication for neck and shoulder. MD bedside to assess. Pending orders. updated on phone.
[2020-12-29] VITALS (12 sets, daily range): BP systolic 135–165; BP diastolic 70–88; PULSE 77–100; RESP 14–25; TEMP 36.1–36.8; O2SAT 90–95
--- NOTE | 2020-12-29 00:47 | PC.NURSE ---
PATIENT REPORTS BURNING IN HIS NOSE. WAS 85-89% ON 5L. PLACED ON 6L NOW 90-91%. CALLED RESPIRATORY FOR THOUGHTS ON OPTIONS FOR O2 DELIVERY MORE COMFORTABLY.
[2020-12-29] MEDS: traMADoL HCL 50 MG TABLET 25 MG PO (01:04)
[2020-12-29] MEDS: 0.9 % Sodium Chloride Flush 3 ML SYRINGE IVFLUSH ×2 (01:05→15:31)
[2020-12-29] MEDS: methylPREDNISolone Sod Succ/PF 125 MG/2 ML VIAL 60 MG IV ×3 (01:06→19:22)
[2020-12-29] MEDS: cefTRIAXone sodium 1 GM in 0.9 % Sodium Chloride 50 ML IV ×2 (02:09→14:02)
[2020-12-29] MEDS: oxyCODONE HCl Immed Release 5 MG TABLET PO ×2 (06:23→15:35)
[2020-12-29 06:46] LABS: Basophils Percent Auto 0.1 % (0-2); Hematocrit 44.4 % (42-52); Hemoglobin 14.5 g/dl (14.0-18.0); Imm Gran Abs Auto 0.02 X10*3/uL (0.00-0.03); Imm Gran Pct Auto 0.3 % (0.0-0.4); Lymphocytes Absolute Auto 1.2 X10*3/uL (1.2-4.9); Lymphocytes Percent Auto 16.3 % (20-40); MANUAL DIFF FLAG SCAN; Mean Corpuscular HGB Conc 32.7 g/dl (31.0-36.0); Mean Corpuscular Hemoglobin 31.5 pg (27.0-33.0); Mean Corpuscular Volume 96.5 fL (80-98); Mean Platelet Volume 8.8 fL (9.4-12.4); Monocytes Absolute Auto 0.1 X10*3/uL (0.1-1.2); Monocytes Percent Auto 0.8 % (2-11); Neutrophils Percent Auto 82.5 % (45-73); Platelet Count 533 X10*3/uL (160-400); Red Cell Distribution Width 15.7 % (11.0-16.0); SCAN SMEAR FLAG 1; White Blood Count 7.2 X10*3/uL (4.8-10.8)
[2020-12-29 07:29] LABS: Anion Gap 14 (12-20); Blood Urea Nitrogen 25 mg/dL (9-16); Calcium 8.5 mg/dL (8.4-10.2); Carbon Dioxide 21 mmol/L (22-29); Chloride 108 mmol/L (96-108); Creatinine Clr Calc Pharmacy 78.8; Estimated Glomerular Filt Rate > 60; Glucose Random 154 mg/dL (60-115); Potassium 5.1 mmol/L (3.3-5.1); Sodium 138 mmol/L (135-145)
[2020-12-29 07:59] LABS: SLIDE REVIEW VERIFIED
[2020-12-29] MEDS: Albuterol/Iprat 2.5/0.5MG 3 ML AMPUL.NEB INHALE ×3 (08:15→19:07)
[2020-12-29] MEDS: Famotidine 20 MG TABLET PO (08:41)
[2020-12-29] MEDS: Sertraline HCL 50 MG TABLET PO (08:41)
[2020-12-29] MEDS: Aspirin Enteric Coated 81 MG TABLET.DR PO (08:41)
--- NOTE | 2020-12-29 13:40 | PM.EVENT ---
Event Note Date of Service: 12/29/20 Event Note: Patient seen for pulmonary consultation. Past history is reviewed, patient examined. Lab and imaging reviewed. Complete note is dictated. A: Acute exacerbation of chronic obstructive pulmonary disease secondary to acute inflammatory process. No evidence of pneumonia. Pulmonary nodules, small, most likely inflammatory . One nodule in right lower lobe is suspicious for central cavitation. P: Agree with the current treatment including IV Solu-Medrol for 1 or 2 days followed by a short course of prednisone. Course of Azithromycin Oxygen by nasal cannula to keep O2 sat above 90%. Ollie melendez Q 6 hours while awake. For pulmonary nodules he would need a repeat CT scan of the chest in 6 months.
--- NOTE | 2020-12-29 14:02 | CONS_ITS ---
DATE OF SERVICE: 12/29/2020 HISTORY OF PRESENT ILLNESS: This gentleman is a 75-year-old gentleman, who has been in the emergency room since yesterday with chief complaint of increased shortness of breath with intermittent cough and low-grade fever for a few days. The patient denies any chest pain, wheezing, or distress. However, his O2 saturation was falling down, noted to be 84% by the EMS. The patient denies exposure to COVID in the last few weeks. He has been mostly at home. The patient has workup in the emergency room. Chest x-ray and CT scan do not show any pneumonia, but there are some pulmonary nodules and there is evidence of pulmonary emphysema. The patient has been started on treatment for acute exacerbation of COPD and would need to be watched in the hospital for a few days. PAST MEDICAL HISTORY: The patient has essential hypertension, hyperlipidemia, and arteriosclerotic heart disease. The patient does have history of chronic shortness of breath with cough and he does have home oxygen at 3 L/minute. PERSONAL HISTORY: There is a past history of smoking, but quit many years ago. PHYSICAL EXAMINATION: GENERAL: 75-year-old male, moderately obese with a somewhat round face, is fairly comfortable at the time of my examination. VITAL SIGNS: Respiratory rate is 20, heart rate 84, temperature 96.9, and his current O2 saturation is 95% on 6 L/minute. EAR, NOSE, THROAT: Examination reveals no acute infection. NECK: No jugular venous distention. Trachea in midline. No lymphadenopathy. CHEST: Percussion note is resonant. Breath sounds are distant with prolonged expiratory phase. No active wheezes, rhonchi, or crepitations are heard at this time. CARDIAC: PMI not palpable. Heart sounds are distant. Rhythm regular. No murmurs. ABDOMEN: Moderately obese, but soft and nontender. No hepatosplenomegaly. EXTREMITIES: No edema or varicosities are noted. IMAGING: The chest x-ray shows a faint patchy densities in the lower lobe areas, but no definite pneumonia. CTA of the chest is negative for pulmonary emboli and there is presence of a few pulmonary nodules, mostly in the lower lobes with size of 5 to 6 mm. There is 1 nodule 9 mm in the right lower lobe with a central hollowness raising possibility of a cavitary lesion. White cell count 10.9 on admission and 7.2 today, hemoglobin 14.5. COVID-19 test negative. Arterial blood gases on admission, pH 7.48, pCO2 of 33, pO2 of 58, consistent with hyperventilation. This ABG was on 10/18/2019. CLINICAL IMPRESSION: The patient is a known case of chronic obstructive pulmonary disease. He has acute exacerbation at this time. No definite pneumonia is noted. Multiple pulmonary nodules as described above. RECOMMENDATIONS: Continue to treat him for acute exacerbation with IV Solu-Medrol, DuoNeb updrafts, oxygen supplementation as needed to keep O2 saturation above 90%. As far as pulmonary nodules are concerned, he would need these to be followed closely. In his case, I would suggest that we repeat CT scan of the chest in 6 months. Thank you very much for asking me to see this patient. We will be glad to follow him along. MD SHANE Tamez/MELONY / [phone]
--- NOTE | 2020-12-29 16:40 | P.PNIM_ITS ---
Subjective Subjective Date of Service: 12/29/20 Interval History: COPD exacerbation, uri/question sinusitis Review of Systems Patient still short of breath, denies any cough. Says that with this deep strain from nose some discharge come out before come to the hospital otherwise denies any new symptoms. Denies any chest pain or abdominal pain or nausea or vomiting or fever or chills or weakness or numbness. Physical Exam Vital Signs: Vital Signs: Last Vital Signs Temp 98.1 F 12/29/20 15:37 Pulse 81 12/29/20 15:51 Resp 18 12/29/20 15:37 BP 165/74 H 12/29/20 15:37 Pulse Ox 94 12/29/20 15:37 Body Mass Index 31.0 Physical exam: constitutional:not in acute distress . Cvs: rrr, [id number] , no murmur res: Air entry slightly diminished has bilateral rhonchi. abd: no rebound or guarding ,nt, bs present. ext pulses present , no cyanosis neuro: axo3 , nonfocal. Objective Data Current Medications Generic Name Dose Route Start Last Admin Trade Name Freq PRN Reason Stop Dose Admin Albuterol/Ipratropium 3 ml 12/28/20 20:00 12/29/20 15:50 Albuterol/Iprat 2.5/0.5mg 3 Ml Ampul.Neb INHALE 3 ml RQ6H WHILE AWAKE BINDU Administration Albuterol/Ipratropium 3 ml 12/28/20 19:10 Albuterol/Iprat 2.5/0.5mg 3 Ml Ampul.Neb INHALE Q4H PRN Wheezing Aspirin 81 mg 12/29/20 09:00 12/29/20 08:41 Aspirin Enteric Coated 81 Mg Tablet. PO 81 mg DAILY BINDU Administration Atorvastatin Calcium 10 mg 12/28/20 21:00 12/28/20 19:59 Atorvastatin Calcium 10 Mg Tablet PO 10 mg BEDTIME BINDU Administration Azithromycin 500 mg 12/29/20 20:00 Azithromycin 500 Mg Tablet PO Q24H BINDU Enoxaparin Sodium 40 mg 12/28/20 21:00 12/28/20 19:59 Enoxaparin Sodium 40 Mg/0.4 Ml Syringe SUBCUT 40 mg Q24H BNIDU Administration Famotidine 20 mg 12/29/20 09:00 12/29/20 08:41 Famotidine 20 Mg Tablet PO 20 mg DAILY BINDU Administration Ceftriaxone Sodium 1 gm/ 50 mls @ 100 mls/hr 12/28/20 14:15 12/29/20 14:35 Sodium Chloride IV Infused Q12H BINDU Infusion Lisinopril 5 mg 12/29/20 09:00 12/29/20 08:42 Lisinopril 5 Mg Tablet PO 5 mg DAILY BINDU Administration Protocol Magnesium Hydroxide 30 ml 12/28/20 19:10 Milk Of Magnesia 30 Ml Oral.Susp PO DAILY PRN Constipation Methylprednisolone Sodium Succinate 60 mg 12/29/20 01:00 12/29/20 08:41 Methylprednisolone Sod Succ/Pf 125 Mg/2 Ml Vial IV 60 mg Q8H BINDU Administration Non-Formulary Medication 300 mcg 12/29/20 21:00 Buprenorphine Hcl PO BID BINDU Oxycodone HCl 5 mg 12/29/20 05:18 12/29/20 15:35 Oxycodone Hcl Immed Release 5 Mg Tablet PO 5 mg Q4H PRN Administration [facility] Consult 1 each 12/28/20 18:10 Consult Rx Perform Med Rec MISCELLANE ONCE PRN Consult order Sertraline HCl 50 mg 12/29/20 09:00 12/29/20 08:41 Sertraline Hcl 50 Mg Tablet PO 50 mg DAILY [facility] Administration Sodium Chloride 3 ml 12/29/20 00:00 12/29/20 15:31 0.9 % Sodium Chloride Flush 3 Ml Syringe IVFLUSH 3 ml QSHIFT BINDU Administration Labs CBC & Chem 7: 12/29/20 06:26 12/29/20 06:26 Microbiology Microbiology Results: Microbiology 12/28/20 14:24 Blood - Venous Blood Culture - Preliminary No growth after 24 hours. 12/28/20 13:24 Blood - Venous Blood Culture - Preliminary No growth after 24 hours. Assessment and Plan (1) COPD with exacerbation: Start date: 12/29/20 Status: Acute Assessment and Plan: 75-year-old male with a past medical history of hypertension, COPD on home oxyg en, hyperlipidemia, anxiety, depression, opiate dependence presented to the hospital with a chief complaint of shortness of breath/cough. Noted to be in COPD exacerbation. Admitted to the hospital for further management. 1.COPD exacerbation:continue Solu-Medrol, nebs ,Azithromycin, oxygen COVID-19 negative Lactate improved 2.URI/question sinus infection:ct sinus pending- If results concerning to change antibiotics to Unasyn. 3.Hypertension/hyperlipidemia: Continue home medications 4.Patient is on buprenorphine: Will defer to the a.m. team to confirm and resume accordingly.
[2020-12-29] MEDS: Enoxaparin Sodium 40 MG/0.4 ML SYRINGE SUBCUT (20:12)
[2020-12-29] MEDS: Azithromycin 500 MG TABLET PO (20:13)
[2020-12-29] MEDS: Atorvastatin Calcium 10 MG TABLET PO (20:13)
--- NOTE | 2020-12-29 22:27 | PC.NURSE ---
patient does not need to be on electronic device monitor per Dr. Francois
[2020-12-30] MEDS: 0.9 % Sodium Chloride Flush 3 ML SYRINGE IVFLUSH ×2 (00:16→07:36)
[2020-12-30] MEDS: methylPREDNISolone Sod Succ/PF 125 MG/2 ML VIAL 60 MG IV ×2 (00:16→07:35)
[2020-12-30] MEDS: oxyCODONE HCl Immed Release 5 MG TABLET PO ×4 (00:19→13:50)
[2020-12-30] MEDS: cefTRIAXone sodium 1 GM in 0.9 % Sodium Chloride 50 ML IV ×2 (02:31→13:44)
[2020-12-30 03:53] VITALS: BP 157/77; PULSE 76; RESP 22; TEMP 36.9; O2SAT 93
[2020-12-30 07:12] VITALS: BP 161/79; PULSE 72; RESP 18; TEMP 36.5; O2SAT 93
[2020-12-30] MEDS: Aspirin Enteric Coated 81 MG TABLET.DR PO (07:35)
[2020-12-30] MEDS: Sertraline HCL 50 MG TABLET PO (07:35)
[2020-12-30] MEDS: Famotidine 20 MG TABLET PO (07:36)
[2020-12-30] MEDS: Albuterol/Iprat 2.5/0.5MG 3 ML AMPUL.NEB INHALE ×2 (08:23→16:22)
[2020-12-30 08:25] VITALS: PULSE 91; O2SAT 90
--- NOTE | 2020-12-30 08:50 | P.CDIC_ITS ---
CDI Concurrent Query Service Date: 12/30/20 Documentation Clarification: Please clarify if you are treating a proba ble/suspected/likely or confirmed: Chronic respiratory failure due to COPD POA-yes Acute on chronic respiratory failure due to COPD exacerbation Please specify if known Provider Response: Other Other Diagnosis: Chronic respiratory failure due to COPD PLEASE DO NOT DELETE/MODIFY EXISTING CONTENT Additional information is needed in order to code to the highest accuracy and appropriate Severity of Illness (SOI). Please clarify the information noted below in your progress notes and discharge summary. Risk Factors/Clinical Indicators/Treatments ED: COPD exacerbation on home O2 3 liters at baseline & 91% EMS states patient's O2 sat room air at home was 84% placed on 4 liters oxygen. At home supplemental oxygen dependent. RR 18/22 pulse ox 94/93 CDS: Iva Rose CCS, [facility] Contact Number: [phone] Please Review the information above and exercise your independent professional judgment in responding to the query. If you concur, pleas document in the PROGRESS NOTES and DISCHARGE SUMMARY. If you do not agree with the query, please document in the query above. THIS QUERY IS PART OF THE PERMANENT MEDICAL RECORD
--- NOTE | 2020-12-30 08:55 | MHC.CM.PN ---
CM met with Patient at bedside and addressed IMM (Original given to Patient and a copy placed on the chart). 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 Patient lives in a house with his and [id number] and he is functionally independent [employer] OFF[employer] (No DME NOR services, only O2 from [facility]). Patient's goal is to return home and CM has initiated and will follow for dc planning. Patient is on Suboxone for Pain, per Karma, and he is mailed this med from [facility] in [facility](H&P mentions a history of Opiate Dependence).
[2020-12-30 11:12] VITALS: BP 164/86; PULSE 91; RESP 18; TEMP 36.9; O2SAT 94
--- NOTE | 2020-12-30 11:15 | P.PNPL_ITS ---
Subjective Subjective Date of Service: 12/30/20 Principal diagnosis: COPD,EXERBATION/PULM. NODULES Interval history: THIS 75 YEARS OLD GENTLEMAN IS FEELING BETTER TODAY. HAS ONLY MINIMAL COUGH, DENIES SHORTNESS OF BREATH OR WHEEZING. HE IS DOING OKAY WITH HIS USUAL OXYGEN 2 L/MINUTE. HE DOES COMPLAIN OF NASAL BLOCKAGE, HE IMPROVED WITH SALINE SPRAY BUT HE CLEARED OUT A LARGE GOBLET OF DARK BLOOD FROM THE RIGHT NOSTRIL. SINUS X-RAYS NEGATIVE FOR ANY SICK SINUS INFECTION. Objective Data Labs CBC & Chem 7: 12/29/20 06:26 12/29/20 06:26 Microbiology Microbiology Results: Microbiology 12/28/20 14:24 Blood - Venous Blood Culture - Preliminary No growth after 24 hours. 12/28/20 13:24 Blood - Venous Blood Culture - Preliminary No growth after 24 hours. Review of Systems Review of Systems Yes all other systems are reviewed and are negative Reports nasal obstruction (RT NOSTRIL) Cardiovascular: Denies chest pain and Reports dyspnea on exertion Respiratory: Reports cough and Reports dyspnea on exertion Physical Exam Vital Signs: Vital Signs: Last Vital Signs Temp 98.4 F 12/30/20 11:12 Pulse 91 12/30/20 11:12 Resp 18 12/30/20 11:12 BP 164/86 H 12/30/20 11:12 Pulse Ox 94 12/30/20 11:12 Body Mass Index 31.0 Const: General: healthy appearing, comfortable, no acute distress, alert and awake Orientation/consciousness: patient oriented x3 HENMT: Head: Yes normal to inspection General nose exam: No nasal polyps present, No nasal discharge present and Other nasal findings present (MINIMAL DRAK BLOOD , IN RT. NOSTRIL.) Face and sinus: Yes sinuses nontender Mouth: oropharynx normal Throat: Yes posterior oropharynx normal Eyes: General: appearance normal, both eyes and all related structures Neck: Neck: Yes normal visual inspection, Yes no lymphadenopathy, Yes trachea midline and Yes no JVD Thyroid: Thyroid normal Chest: Chest palpation & inspection: normal inspection of the chest and normal palpation of entire chest wall Resp: Effort & Inspection: prolonged expiratory phase Auscultation: no rhonchi, no wheezes and diminished lung sounds Cardio: Palpation: normal PMI Rate: regular rate Rhythm: regular rhythm Heart sounds: no gallops and no murmurs Peripheral pulses: Peripheral pulses 2+ throughout GI: Palpation (GI): not soft, nontender, No hepatosplenomegaly present and Palpable mass present Auscultation: normal bowel sounds Back/Spine/Pelvis: Thoracic/Lumbar Spine: thoracic and lumbar spine normal to inspection Skin: General skin exam: no rashes or lesions noted Neuro: General: patient oriented x3 and no focal motor deficits Cranial nerves: Yes CN's II-XII intact bilaterally Extrem: General: Yes normal to inspection, Yes no clubbing, cyanosis or edema, Yes no calf tenderness and Yes venous stasis dermatitis Psych: Appearance: grossly normal Speech and movement: Normal speech and movement present Assessment and Plan Assessment and plan (1) COPD with exacerbation: Problem details: HE SEEMS TO HAVE IMPROVED , AND SHOULD BE READY TO GO HOME. SINUS CT SCAN IS NEGATIVE FOR ANY INFECTION. Status: Acute (2) Supplemental oxygen dependent: Problem details: PATIENT USES OXYGEN 2 L/MINUTE AT HOME AND HE CAN CONTINUE THAT BEFORE Status: Acute (3) Pulmonary nodule seen on imaging study: Problem details: THERE ARE A FEW SMALL PULMONARY NODULES IN THE RIGHT LOWER LOBE AND LEFT LOWER LOBE, THESE ARE PROBABLY INFLAMMATORY IN NATURE. ONE NODULE DESCRIBED 9 MM WITH CENTRAL CAVITATION, IS A NONSPECIFIC FINDING .IT IT IS NOT A REAL SOLID NODULE,. AND MAY BE A STRUCTURAL ABNORMALITY. ANYWAY IT SHOULD BE FOLLOWED UP CLOSELY. I SUGGEST A REPEAT CT SCAN OF THE CHEST IN 6 MONTHS. Status: Acute Assessment and Plan: PATIENT HAS BEEN ADVISED TO ABOUT THE ABOVE FINDINGS, HE WOULD FOLLOW UP WITH HIS PRIMARY CARE PHYSICIAN BUT MAY COME TO THE [facility] FOR FOLLOW- UP. Time Spent With Patient Time: Total time spent is greater than 50% in coordination of care (as documented) at patient's floor/unit and/or counseling patient: Time with patient: 15 - 24 minutes
--- NOTE | 2020-12-30 14:15 | PM.DS ---
DS: Providers Provider Date of Service: 12/30/20 Date of admission: 12/28/20 19:10 Primary care physician: Leeroy Zendejas MD Consults: 12/29/20 09:10 Consult to Pulmonology Routine Consulting Provider: Amador Stevens Reason for consultation: COPD Excerebation/pulm nodule ? cavitary Has provider been notified: No DS: Diagnosis Discharge Diagnosis (1) COPD with exacerbation: Status: Acute (2) Supplemental oxygen dependent: Status: Acute (3) Pulmonary nodule seen on imaging study: Status: Acute DS: Medications Discharge Medications Home Medications: Home Medications Medication Instructions Recorded Confirmed aspirin 81 mg tablet,delayed 81 mg PO DAILY 10/11/20 12/28/20 release buprenorphine HCl 300 mcg buccal 300 mcg PO BID 10/11/20 12/28/20 film hydrocodone 10 mg-acetaminophen 1 - 2 tab PO Q6H PRN 10/11/20 12/28/20 325 mg tablet lisinopril 5 mg tablet 5 mg PO DAILY 10/11/20 12/28/20 atorvastatin [Lipitor] 10 mg PO BEDTIME 12/28/20 12/28/20 sertraline 50 mg PO DAILY 12/28/20 12/28/20 Previous Rx's Medication Instructions Recorded albuterol sulfate 1 inh INHALATION QID PRN #8.5 g 12/30/20 azithromycin 250 mg PO DAILY 5 Days #5 tab 12/30/20 famotidine 20 mg PO DAILY #30 tab 12/30/20 fluticasone furoate-vilanterol 1 inh INHALATION DAILY #28 ea 12/30/20 [Breo Ellipta] prednisone 20 mg PO DAILY #10 tab 12/30/20 DS: Summary Hospital Course Hospital Course: 75-year-old male with a past medical history of COPD on 3 L of oxygen at baseline, baseline oxygen saturation between 90-92%, history of opiate dependence, hypertension, anxiety, depression presented to the hospital with a chief complaint of shortness of breath associated with cough and low-grade fever. Mentioned that he has been having these symptoms for the past 3 days. Denies any numbness tingling. Denies any chest pain palpitations. Per EMS is room air home oxygen saturation was 84%. Patient denies any GI or symptoms. Review of all other systems is negative except mentioned above ER course: Per ER team patient was saturating in mid 80s on ambulation; patient was given Solu-Medrol, ceftriaxone azithromycin. CT scan showed no evidence of PE. EKG did not show any new changes. Troponins negative. Admitted to the hospital under impression of COPD exacerbation. Hospital Course problem by section: 75-year-old male with a past medical history of hypertension, COPD on home oxygen, hyperlipidemia, anxiety, depression, opiate dependence presented to the hospital with a chief complaint of shortness of breath/cough. Noted to be in COPD exacerbation. Admitted to the hospital for further management. 1.COPD exacerbation: Started on nebs, steroids, azithromycin and subsequently patient shortness of breath improved going home with p.o. steroids and azithromycin. Initially URI/question sinus infection:ct sinus : Did not show infection of sinus. CT chest showed pulmonary nodules - repeat CT scan of the chest in 6 months outpatient and further management outpatient as per PCP. Above management discussed with the patient in detail length he understand and in agreement with the above plan, time spent 50 minutes and 50% time spent on counseling. Significant findings: As above. Procedures performed: None. Treatment and response: As above. Complications: None. Time Spent with Patient Time attestation: Total time spent providing and/or coordinating discharge services: Discharge coordination time: Greater than 30 minutes Physical Exam Vital Signs: Vital Signs: Last Vital Signs Temp 98.4 F 12/30/20 11:12 Pulse 91 12/30/20 11:12 Resp 18 12/30/20 11:12 BP 164/86 H 12/30/20 11:12 Pulse Ox 94 12/30/20 11:12 Body Mass Index 31.0 Physical exam: Constitutional: Not in acute distress HEENT: Eyes: Anicteric no discharge, Neck supple Cvs: rrr, [id number] , no murmur res: clear to auscultation ,no rhonchii or wheezing abd: no rebound or guarding ,nt, bs present. ext pulses present , no cyanosis neuro: axo3 , nonfocal. DS: Data Data Completed and Pending Labs on day of discharge: Laboratory Tests CTA:IMPRESSION: No evidence of PE. No evidence of aortic aneurysm. Diffuse emphysema with multiple bilateral small pulmonary nodules and likely a cavitary nodule right lower lobe. Bibasilar atelectasis. No acute consolidation seen. VTE: Negative. 0212/28/20 12/28/20 13:24 13:24 13:24 WBC RBC Hgb Hct MCV MCH MCHC RDW Plt Count MPV Immature Gran % (Auto) Neut % (Auto) Lymph % (Auto) Evangeline % (Auto) Eos % (Auto) Baso % (Auto) Lymph # (Auto) Evangeline # (Auto) Eos # (Auto) Baso # (Auto) Abs Immat Gran (auto) Absolute Neuts (auto) Absolute Nucleated RBC Nucleated RBC % (auto) Smear Tech's Comments PT INR APTT Sodium 139 Potassium 4.9 Chloride 106 Carbon Dioxide 22 Anion Gap 16 BUN 18 H Creatinine 0.88 Estim Creat Clear Calc 85.1 Estimated GFR > 60 Random Glucose 105 Lactic Acid 2.1 H* Lactic Acid Fup @ 2Hr Calcium 8.6 Ferritin 274 H Total Bilirubin 1.1 H AST 19 ALT 12 Alkaline Phosphatase 89 Lactate Dehydrogenase 270 Troponin I High Sens 7.5 B-Natriuretic Peptide 81 Total Protein 7.2 Albumin 3.3 L Procalcitonin Coronavirus (PCR) SARS-CoV-2 (PCR) Influenza Type A (PCR) Influenza Type B (PCR) RSV RNA Qual (PCR) 12/28/20 12/28/20 12/28/20 13:24 13:24 13:24 WBC RBC Hgb Hct MCV MCH MCHC RDW Plt Count MPV Immature Gran % (Auto) Neut % (Auto) Lymph % (Auto) Evangeline % (Auto) Eos % (Auto) Baso % (Auto) Lymph # (Auto) Evangeline # (Auto) Eos # (Auto) Baso # (Auto) Abs Immat Gran (auto) Absolute Neuts (auto) Absolute Nucleated RBC Nucleated RBC % (auto) Smear Tech's Comments PT 15.1 H INR 1.3 H APTT 38.1 H Sodium Potassium Chloride Carbon Dioxide Anion Gap BUN Creatinine Estim Creat Clear Calc Estimated GFR Random Glucose Lactic Acid Lactic Acid Fup @ 2Hr Calcium Ferritin Total Bilirubin AST ALT Alkaline Phosphatase Lactate Dehydrogenase Troponin I High Sens B-Natriuretic Peptide Total Protein Albumin Procalcitonin 0.09 Coronavirus (PCR) Cancelled SARS-CoV-2 (PCR) Influenza Type A (PCR) Cancelled Influenza Type B (PCR) Cancelled RSV RNA Qual (PCR) Cancelled 12/28/20 12/28/20 12/28/20 13:25 13:37 16:07 WBC 10.9 H RBC 4.51 L Hgb 14.2 Hct 43.5 MCV 96.5 MCH 31.5 MCHC 32.6 RDW 15.9 Plt Count 514 H MPV 8.7 L Immature Gran % (Auto) 0.4 Neut % (Auto) 72.6 Lymph % (Auto) 17.6 L Evangeline % (Auto) 7.0 Eos % (Auto) 1.9 Baso % (Auto) 0.5 Lymph # (Auto) 1.9 Evangeline # (Auto) 0.8 Eos # (Auto) 0.2 Baso # (Auto) 0.1 Abs Immat Gran (auto) 0.04 H Absolute Neuts (auto) 7.9 Absolute Nucleated RBC 0.000 Nucleated RBC % (auto) 0.0 Smear Tech's Comments PT INR APTT Sodium Potassium Chloride Carbon Dioxide Anion Gap BUN Creatinine Estim Creat Clear Calc Estimated GFR Random Glucose Lactic Acid Lactic Acid Fup @ 2Hr Calcium Ferritin Total Bilirubin AST ALT Alkaline Phosphatase Lactate Dehydrogenase Troponin I High Sens B-Natriuretic Peptide Total Protein Albumin Procalcitonin Coronavirus (PCR) NEGATIVE SARS-CoV-2 (PCR) Cancelled Influenza Type A (PCR) NEGATIVE Influenza Type B (PCR) NEGATIVE RSV RNA Qual (PCR) NEGATIVE 12/28/20 12/28/20 12/29/20 16:11 16:11 06:26 WBC 7.2 RBC 4.60 Hgb 14.5 Hct 44.4 MCV 96.5 MCH 31.5 MCHC 32.7 RDW 15.7 Plt Count 533 H MPV 8.8 L Immature Gran % (Auto) 0.3 Neut % (Auto) 82.5 H Lymph % (Auto) 16.3 L Evangeline % (Auto) 0.8 L Eos % (Auto) 0.0 Baso % (Auto) 0.1 Lymph # (Auto) 1.2 Evangeline # (Auto) 0.1 Eos # (Auto) 0.0 Baso # (Auto) 0.0 Abs Immat Gran (auto) 0.02 Absolute Neuts (auto) 6.0 Absolute Nucleated RBC 0.000 Nucleated RBC % (auto) 0.0 Smear Tech's Comments VERIFIED PT INR APTT Sodium Potassium Chloride Carbon Dioxide Anion Gap BUN Creatinine Estim Creat Clear Calc Estimated GFR Random Glucose Lactic Acid Lactic Acid Fup @ 2Hr 1.3 Calcium Ferritin Total Bilirubin AST ALT Alkaline Phosphatase Lactate Dehydrogenase Troponin I High Sens 6.5 B-Natriuretic Peptide Total Protein Albumin Procalcitonin Coronavirus (PCR) SARS-CoV-2 (PCR) Influenza Type A (PCR) Influenza Type B (PCR) RSV RNA Qual (PCR) 12/29/20 06:26 WBC RBC Hgb Hct MCV MCH MCHC RDW Plt Count MPV Immature Gran % (Auto) Neut % (Auto) Lymph % (Auto) Evangeline % (Auto) Eos % (Auto) Baso % (Auto) Lymph # (Auto) Evangeline # (Auto) Eos # (Auto) Baso # (Auto) Abs Immat Gran (auto) Absolute Neuts (auto) Absolute Nucleated RBC Nucleated RBC % (auto) Smear Tech's Comments PT INR APTT Sodium 138 Potassium 5.1 Chloride 108 Carbon Dioxide 21 L Anion Gap 14 BUN 25 H Creatinine 0.95 Estim Creat Clear Calc 78.8 Estimated GFR > 60 Random Glucose 154 H D Lactic Acid Lactic Acid Fup @ 2Hr Calcium 8.5 Ferritin Total Bilirubin AST ALT Alkaline Phosphatase Lactate Dehydrogenase Troponin I High Sens B-Natriuretic Peptide Total Protein Albumin Procalcitonin Coronavirus (PCR) SARS-CoV-2 (PCR) Influenza Type A (PCR) Influenza Type B (PCR) RSV RNA Qual (PCR) Preliminary micro results at discharge 12/28/20 14:24 Blood Culture - Preliminary Blood - Venous No growth after 24 hours. 12/28/20 13:24 Blood Culture - Preliminary Blood - Venous No growth after 24 hours. Discharge Plan Discharge Patient Disposition: Home, Self-Care Referrals: Leeroy Zendejas MD [Primary Care Provider] - Discharge Medications: New famotidine 20 mg Tablet 20 mg PO DAILY Qty: 30 RF: 0 azithromycin 250 mg tablet 250 mg PO DAILY 5 Days Qty: 5 RF: 0 Breo Ellipta 200-25 mcg/dose blister with device 1 inh inhalation DAILY Qty: 28 RF: 0 albuterol sulfate 90 mcg/actuation HFA aerosol inhaler 1 inh inhalation QID PRN (Reason: copd) Qty: 8.5 RF: 0 prednisone 20 mg tablet 20 mg PO DAILY Qty: 10 RF: 0 Continued atorvastatin [Lipitor] 10 mg Tablet 10 mg PO BEDTIME RF: 0 sertraline 50 mg Tablet 50 mg PO DAILY RF: 0 aspirin 81 mg tablet,delayed release (DR/EC) 81 mg PO DAILY RF: 0 lisinopril 5 mg tablet 5 mg PO DAILY RF: 0 hydrocodone-acetaminophen 10-325 mg tablet 1 - 2 tab PO Q6H PRN (Reason: Pain (Scale Score 7-10)) RF: 0 buprenorphine HCl 300 mcg film 300 mcg PO BID RF: 0 Discontinued amoxicillin-pot clavulanate [Augmentin] 875-125 mg Tablet 1 tab PO BID RF: 0 Discharge Orders: Discharge Order (Routine); Ordered 12/30/20 Ordered By: Juan Alberto Villafana Diet: advance to usual diet Activity on Discharge: As tolerated Stand Alone Forms: Patient Portal Discharge page Visit Report Forms: Patient Portal Discharge page Care Plan Goals: Patient came with COPD exacerbation-started on nebs, steroids, supportive oxygen and subsequently patient improved: Going home with p.o. steroids and is complete the course of azithromycin. Patient chest CT scan shows pulmonary nodule: Please repeat chest imaging study in 6 month to re-evaluate out patiently Health Concerns: As above. Plan of Treatment: As above.
--- NOTE | 2020-12-30 14:20 | MHC.CM.PN ---
Patient has been medically cleared for dc to home today, no services. IMM addressed with Patient this morning.
--- NOTE | 2020-12-30 15:04 | MHC.CM.PN ---
RN received a call from Patients indicating that Breo is too expensive ($400.00 ) with Patient's particular insurance. indicated that [facility] is trying to get an override from [employer] to see if the med can be covered 1 time. CM encourage that if the override does not happen, she may want to discuss with the pharmacist, what similar treatment is covered by Patient's insurance, and then ask MD if that particular treatment can be used.
[2020-12-30 15:37] VITALS: BP 137/82; PULSE 96; RESP 16; TEMP 36.8; O2SAT 92
[2020-12-30 16:28] VITALS: PULSE 82; O2SAT 93
== END 2020-12-30 17:18 | disposition home or self-care (01) | DRG 191 ==
LOC: HO.ED 18:19 → HO.EDOVER 19:25 → HO.S3 12-29 12:13
PROVIDERS: Physician Assistant; Admitting Provider Hospitalist; Emergency Provider Emergency Medicine; PCP Family Medicine; Visit Provider Internal Medicine
DX: J44.1 Chronic obstructive pulmonary disease with (acute) exacerbation (principal); J96.10 Chronic respiratory failure, unspecified whether with hypoxia or hypercapnia; E78.5 Hyperlipidemia, unspecified; R91.8 Other nonspecific abnormal finding of lung field; Z99.81 Dependence on supplemental oxygen; I10 Essential (primary) hypertension; Z79.82 Long term (current) use of aspirin; Z79.51 Long term (current) use of inhaled steroids; Z79.899 Other long term (current) drug therapy
CPT/HCPCS: 0241U; 36415; 70486; 71045; 71275; 80048; 80053; 82728; 83605; 83615; 83880; 84145; 84484; 85025; 85610; 85730; 87040; 93005; 94640; 96365; 96366; 96367; 96375; 99285; J0456; J0696; J1650; J2930; J3475; Q9967

== ENCOUNTER → 2021-02-07 14:01 | Outpatient (BNVA) | payer MEDICARE, SELFPAY | PROVIDERS: PCP Family Medicine; Visit Provider Internal Medicine Pulmonary Disease | DX: Z13.89 Encounter for screening for other disorder (principal) | CPT/HCPCS: Q3014 ==

== ENCOUNTER 2021-05-15 16:29 | Inpatient (IN) | payer MEDICARE, SELFPAY ==
--- NOTE | ~2021-05-15 | XR_ITS ---
EXAMINATION: XR CHEST CLINICAL INFORMATION: COPD exacerbation COMPARISON: Chest x-ray 12/28/2020. CT chest 12/28/2020 TECHNIQUE: Frontal portable view of the chest was obtained. 4:44 PM FINDINGS: Marked emphysematous change of lungs with mild chronic coarse interstitial lung markings. No acute airways disease. No focal consolidation. No pleural effusion. No pulmonary vascular congestion. There is no pneumothorax. Heart size is normal. Cardiac and mediastinal contours are normal. XR/XR chest 1V IMPRESSION: Marked emphysematous change of lungs. No acute abnormality of the chest.
--- NOTE | ~2021-05-15 | CT_ITS ---
EXAMINATION: CT ANGIOGRAM OF THE CHEST WITH AND WITHOUT CONTRAST (CT PULMONARY ANGIOGRAM FOR PE) CLINICAL INFORMATION: Reason for Exam SOB; high DDimer COMPARISON: 12/28/2020, 10/17/2019, 03/22/2018. TECHNIQUE: Prior to contrast administration, noncontrast localization images were obtained. Subsequently, multidetector volumetric imaging was performed from the thoracic inlet to below the diaphragms following the administration of 71 mL Omnipaque 350 intravenous contrast. No contrast reaction reported Sagittal, coronal, and MIP oblique sagittal reformatted images were obtained on the CT workstation, uploaded to PACS, and reviewed. This CT examination was performed using dose optimization techniques as appropriate, variously including the following: *Automated exposure control *Adjustment of mA and/or kV according to patient size (this includes techniques or standardized protocols for targeted exams where dose is matched to indication/reason for exam; i.e. extremities or head) *Use of iterative reconstruction technique Total exam dose-length product 368 mGy-cm FINDINGS: QUALITY OF STUDY/CONTRAST BOLUS: Satisfactory. PULMONARY ARTERIES: No central or segmental pulmonary emboli. Enlarged caliber of the central pulmonary arteries is consistent with pulmonary arterial hypertension, likely related to underlying COPD. THORACIC AORTA: Calcific atherosclerosis is present in the thoracic aorta. No aneurysm or dissection. LUNG: Severe, diffuse centrilobular pulmonary edema, more pronounced in the upper lobes. As seen on the prior study, there are multiple perifissural, angular nodular densities in both lungs (right greater than left) which are not appreciably changed dating back multiple studies to 03/22/2018, most consistent with perifissural nodule/intrapulmonary lymph nodes. A few small intraluminal opacities are evident within the right lung bronchi, most consistent with mucous. Other endobronchial lesions are felt to be less likely. There is a 6 mm cystic focus in the lateral aspect of the right lower lobe which appears unchanged from prior study corresponds chronic postinfectious pneumatocele. No suspicious associated nodules are identified. No new, concerning pulmonary nodules are identified. Peripheral, dependent atelectasis is present in the lower lobes. PLEURA: No pleural effusion or pneumothorax. MEDIASTINUM: Normal heart size. No pericardial effusion. No hilar or mediastinal lymphadenopathy. No evidence of septal bowing or right heart strain. Calcific atherosclerosis is present in the coronary arteries. CHEST WALL/AXILLA: No axillary or internal mammary lymphadenopathy. OSSEOUS STRUCTURES: No acute or suspicious osseous abnormality. There is diffuse idiopathic skeletal hyperostosis in the thoracic spine. No acute osseous lesions are identified. UPPER ABDOMEN: Unremarkable. No reflux of contrast into the hepatic veins to suggest elevated right heart pressures. CT/CT angio chest PE protocol IMPRESSION: 1. No evidence of pulmonary embolism. No acute thoracic abnormalities. 2. Severe centrilobular pulmonary edema. 3. Coronary artery calcifications. VTE: negative
[2021-05-15 16:34] VITALS: BP 173/73; PULSE 69; RESP 17; TEMP 36.6; O2SAT 92; BMI 30.2
--- NOTE | 2021-05-15 16:40 | ECG_ITS ---
Test Reason : DIFFICULTY BREATHING Blood Pressure : / mmHG Vent. Rate : 065 BPM Atrial Rate : 065 BPM P-R Int : 210 ms QRS Dur : 076 ms QT Int : 428 ms P-R-T Axes : 018 030 -14 degrees QTc Int : 445 ms Sinus rhythm with 1st degree A-V block with Premature supraventricular complexes ST & T wave abnormality, consider anterior ischemia Abnormal ECG When compared with ECG of 28-DEC-2020 14:12, No significant change was found Referred By: Opal Rodriguez Electronically Signed By:Wilner Stockton
--- NOTE | 2021-05-15 16:43 | ED_ITS ---
HPI - SOB/Dyspnea General Chief Complaint: Dyspnea Stated Complaint: sob Time Seen by Provider: 05/15/21 16:31 Source: patient and family Mode of arrival: EMS Limitations: no limitations History of Present Illness HPI Narrative: Patient comes to emergency room complaining of shortness of breath. Patient is known to be a COPD patient, oxygen dependent at 2 L. patient states that his usual oxygen saturation ranges between 88-90% on his 2 L. However, starting 3 days ago, patient started feeling short of breath especially with exertion, his oxygen a saturation dropping to the low 70s with exertion while using his oxygen. Patient has been feeling short of breath even at rest for a lost 24 hours. Patient denies any chest pain, however he feels that he cannot catch enough air, therefore his family called 911. EMS provided the patient with 1 nebulization treatment, patient states that he feels much better at this time. MD elicited complaint: shortness of breath Pertinent past history: COPD Related Data Home Medications Medication Instructions Recorded Confirmed aspirin 81 mg tablet,delayed 81 mg PO DAILY@1800 10/11/20 05/15/21 release lisinopril 5 mg tablet 5 mg PO DAILY@1800 10/11/20 05/15/21 albuterol sulfate 2 inh INHALATION Q4H PRN 05/15/21 05/15/21 alprazolam 1 tab PO DAILY PRN 05/15/21 05/15/21 atorvastatin 1 tab PO DAILY@1800 05/15/21 05/15/21 buprenorphine HCl [Belbuca] 1 strip PO BID 05/15/21 05/15/21 hydrocodone-acetaminophen 1 tab PO 8XD PRN 05/15/21 05/15/21 sertraline 1 tab PO DAILY@1800 05/15/21 05/15/21 Allergies Allergy/AdvReac Type Severity Reaction Status Date / Time No Known Allergies Allergy Verified 02/07/21 14:02 [No Known Allergies*] Review of Systems Review of Systems: Constitutional : No Weight loss, No Fever, No Chills, No Night Sweats, No Fatigue, No Malaise ENT/Mouth : No Hearing loss, No Ear Pain, No Nasal Congestion, No Sinus Pain, No Hoarseness, No sore throat, No Rhinorrhea, No Swallowing Difficulty Eyes: No Eye Pain, No Swelling, No Redness, No Foreign Body, No Discharge, No Vision Changes Cardiovascular : No Chest Pain, complaining of dyspnea on exertion, No Orthopnea, +2 pitting edema bilaterally, No Palpitations Respiratory : Worsening Cough, No Sputum, No Wheezing, No Smoke Exposure, worsening dyspnea at rest and with exertion, increased O2 demand Gastrointestinal : No Nausea, No Vomiting, No Diarrhea, No Constipation, No abdominal Pain, No Hematochezia, No Melena Genitourinary : no irregular bleeding, No Dysuria, No Urinary Frequency, No Hematuria, No Urinary Incontinence, No Urgency, No Flank Pain, No Urinary Flow Changes, No Hesitancy Musculoskeletal : No joint pain, No Myalgias, No Joint Swelling Skin : No Skin Lesions, No rash Neuro : No Weakness, No Numbness, No Paresthesias, No Loss of Consciousness, No Dizziness, No Headache Psych : No Anxiety/Panic, No Depression, No SI/HI/AH/VH, No Social Issues, Heme/Lymph: No Bruising, No Bleeding,No Lymphadenopathy Endocrine : No Polyuria, No Polydipsia, No Temperature Intolerance [facility] Past Medical History Medical History Atherosclerotic cardiovascular disease Essential hypertension Other and unspecified hyperlipidemia Pulmonary nodule seen on imaging study Surgical History History of cardiac catheterization (~12/09/19) Family History Family History (Updated 11/29/20 @ 10:52 by DEAN Lombardo) Father No problems noted. Mother No problems noted. Social History Social History (Updated 10/11/20 @ 14:18 by Piper Irvin MA) Household Members: Family Housing: House Do you presently have visiting nurse or other home services: No Alcohol intake: never Patient Tobacco Use Status: Former Tobacco user Smoked in Last 30 Days: No Second Hand Smoke Exposure: No Use of substances other than those prescribed or required for medical reasons: No Advance Directives: No Advance Directives Information Provided: Yes service: Yes Current occupational status: retired Physical Exam Vital Signs: Vital Signs: Last Vital Signs Temp 98 F 05/15/21 16:34 Pulse 68 05/15/21 16:58 Resp 17 05/15/21 16:34 BP 173/73 H 05/15/21 16:34 Pulse Ox 92 05/15/21 16:34 Oxygen Flow Rate 4 05/15/21 16:34 Body Mass Index 30.2 Appearance: Alert. Oriented X3. No acute distress. Eyes: Pupils equal, round and reactive to light. ENT: Pharynx normal. Neck: Normal inspection. Neck supple. No lymph nodes noted. No crepitus CVS: Normal heart rate and rhythm. Pulses normal. Normal S1 and S2 Respiratory: Mild respiratory distress, bilateral decreased breath sounds, oxygen saturation 84% on 2 L, 92% on 4 L Abdomen: Soft and nontender. No rigidity. No distention. good BS x4 Skin: Skin warm and mildly diaphoretic, Normal skin color. Normal skin turgor. Extremities: +2 pitting edema bilaterally, No Lacerations. No Rash Neuro: Oriented X 3. No motor deficit. No sensory deficit. Moving all extermi ties. No slurred speech. Course Course Course Narrative: I discussed the patient with our hospitalist, patient will be admitted. Patient likely has a COPD exacerbation, sepsis is not suspected. White blood cell count within normal limits, lactic acid within normal limits MDM - SOB/Dyspnea Lab Data Result diagrams: 05/15/21 17:17 05/15/21 17:17 Labs: Lab Results 05/15/21 05/15/21 05/15/21 Range/Units 17:16 17:17 17:17 WBC 10.1 (4.8-10.8) X10*3/uL RBC 4.83 (4.60-5.80) X10*6/uL Hgb 15.2 (14.0-18.0) g/dl Hct 46.9 (42-52) % MCV 97.1 (80-98) fL MCH 31.5 (27.0-33.0) pg MCHC 32.4 (31.0-36.0) g/dl RDW 15.5 (11.0-16.0) % Plt Count 266 D (160-400) X10*3/uL MPV 9.0 L (9.4-12.4) fL Immature Gran % (Auto) 0.4 (0.0-0.4) % Neut % (Auto) 67.4 (45-73) % Lymph % (Auto) 23.0 (20-40) % [place] % (Auto) 7.8 (2-11) % Eos % (Auto) 1.0 (0-4) % Baso % (Auto) 0.4 (0-2) % Lymph # (Auto) 2.3 (1.2-4.9) X10*3/uL [place] # (Auto) 0.8 (0.1-1.2) X10*3/uL Eos # (Auto) 0.1 (0.0-0.4) X10*3/uL Baso # (Auto) 0.0 (0.0-0.2) X10*3/uL Abs Immat Gran (auto) 0.04 H (0.00-0.03) X10*3/uL Absolute Neuts (auto) 6.8 (2.0-8.3) X10*3/uL Absolute Nucleated RBC 0.000 (0.0-0.012) X10*3/uL Nucleated RBC % (auto) 0.0 (0.0-0.2) /100WBC PT 14.8 H (10.8-13.0) SEC INR 1.2 H (0.9-1.1) VBG pH (7.32-7.43) VBG pCO2 mmHg VBG pO2 mmHg VBG HCO3 (22-26) mmol/L VBG O2 Saturation % VBG Base Excess mmol/L Sodium (135-145) mmol/L Potassium (3.3-5.1) mmol/L Chloride (96-108) mmol/L Carbon Dioxide (22-29) mmol/L Anion Gap (12-20) BUN (9-16) mg/dL Creatinine (0.5-1.4) mg/dL Estim Creat Clear Calc Estimated GFR Random Glucose (60-115) mg/dL Lactic Acid (0.5-2.0) mmol/L Calcium (8.4-10.2) mg/dL Total Bilirubin (0.0-1.0) mg/dL Direct Bilirubin (0.0-0.5) mg/dL AST (5-37) U/L ALT (0-40) U/L Alkaline Phosphatase (39-117) U/L Troponin I High Sens (<3.5-35.0) ng/L B-Natriuretic Peptide (<100) pg/mL Total Protein (6.5-8.0) g/dL Albumin (3.5-5.0) g/dL Coronavirus (PCR) NEGATIVE (Negative) Influenza Type A (PCR) NEGATIVE (Negative) Influenza Type B (PCR) NEGATIVE (Negative) RSV RNA Qual (PCR) NEGATIVE (Negative) 05/15/21 05/15/21 05/15/21 Range/Units 17:17 17:17 17:17 WBC (4.8-10.8) X10*3/uL RBC (4.60-5.80) X10*6/uL Hgb (14.0-18.0) g/dl Hct (42-52) % MCV (80-98) fL MCH (27.0-33.0) pg MCHC (31.0-36.0) g/dl RDW (11.0-16.0) % Plt Count (160-400) X10*3/uL MPV (9.4-12.4) fL Immature Gran % (Auto) (0.0-0.4) % Neut % (Auto) (45-73) % Lymph % (Auto) (20-40) % [place] % (Auto) (2-11) % Eos % (Auto) (0-4) % Baso % (Auto) (0-2) % Lymph # (Auto) (1.2-4.9) X10*3/uL [place] # (Auto) (0.1-1.2) X10*3/uL Eos # (Auto) (0.0-0.4) X10*3/uL Baso # (Auto) (0.0-0.2) X10*3/uL Abs Immat Gran (auto) (0.00-0.03) X10*3/uL Absolute Neuts (auto) (2.0-8.3) X10*3/uL Absolute Nucleated RBC (0.0-0.012) X10*3/uL Nucleated RBC % (auto) (0.0-0.2) /100WBC PT (10.8-13.0) SEC INR (0.9-1.1) VBG pH (7.32-7.43) VBG pCO2 mmHg VBG pO2 mmHg VBG HCO3 (22-26) mmol/L VBG O2 Saturation % VBG Base Excess mmol/L Sodium 140 (135-145) mmol/L Potassium 4.4 (3.3-5.1) mmol/L Chloride 108 (96-108) mmol/L Carbon Dioxide 24 (22-29) mmol/L Anion Gap 12 (12-20) BUN 20 H (9-16) mg/dL Creatinine 1.21 (0.5-1.4) mg/dL Estim Creat Clear Calc 62.1 Estimated GFR 59 Random Glucose 99 D (60-115) mg/dL Lactic Acid 1.3 (0.5-2.0) mmol/L Calcium 9.1 D (8.4-10.2) mg/dL Total Bilirubin 1.2 H (0.0-1.0) mg/dL Direct Bilirubin 0.5 (0.0-0.5) mg/dL AST 20 (5-37) U/L ALT 18 (0-40) U/L Alkaline Phosphatase 99 (39-117) U/L Troponin I High Sens 7.3 (<3.5-35.0) ng/L B-Natriuretic Peptide 114 H (<100) pg/mL Total Protein 7.2 (6.5-8.0) g/dL Albumin 3.9 (3.5-5.0) g/dL Coronavirus (PCR) (Negative) Influenza Type A (PCR) (Negative) Influenza Type B (PCR) (Negative) RSV RNA Qual (PCR) (Negative) 05/15/21 Range/Units 18:51 WBC (4.8-10.8) X10*3/uL RBC (4.60-5.80) X10*6/uL Hgb (14.0-18.0) g/dl Hct (42-52) % MCV (80-98) fL MCH (27.0-33.0) pg MCHC (31.0-36.0) g/dl RDW (11.0-16.0) % Plt Count (160-400) X10*3/uL MPV (9.4-12.4) fL Immature Gran % (Auto) (0.0-0.4) % Neut % (Auto) (45-73) % Lymph % (Auto) (20-40) % [place] % (Auto) (2-11) % Eos % (Auto) (0-4) % Baso % (Auto) (0-2) % Lymph # (Auto) (1.2-4.9) X10*3/uL [place] # (Auto) (0.1-1.2) X10*3/uL Eos # (Auto) (0.0-0.4) X10*3/uL Baso # (Auto) (0.0-0.2) X10*3/uL Abs Immat Gran (auto) (0.00-0.03) X10*3/uL Absolute Neuts (auto) (2.0-8.3) X10*3/uL Absolute Nucleated RBC (0.0-0.012) X10*3/uL Nucleated RBC % (auto) (0.0-0.2) /100WBC PT (10.8-13.0) SEC INR (0.9-1.1) VBG pH 7.35 (7.32-7.43) VBG pCO2 32 mmHg VBG pO2 55 mmHg VBG HCO3 18 L (22-26) mmol/L VBG O2 Saturation 86.0 % VBG Base Excess -5.9 mmol/L Sodium (135-145) mmol/L Potassium (3.3-5.1) mmol/L Chloride (96-108) mmol/L Carbon Dioxide (22-29) mmol/L Anion Gap (12-20) BUN (9-16) mg/dL Creatinine (0.5-1.4) mg/dL Estim Creat Clear Calc Estimated GFR Random Glucose (60-115) mg/dL Lactic Acid (0.5-2.0) mmol/L Calcium (8.4-10.2) mg/dL Total Bilirubin (0.0-1.0) mg/dL Direct Bilirubin (0.0-0.5) mg/dL AST (5-37) U/L ALT (0-40) U/L Alkaline Phosphatase (39-117) U/L Troponin I High Sens (<3.5-35.0) ng/L B-Natriuretic Peptide (<100) pg/mL Total Protein (6.5-8.0) g/dL Albumin (3.5-5.0) g/dL Coronavirus (PCR) (Negative) Influenza Type A (PCR) (Negative) Influenza Type B (PCR) (Negative) RSV RNA Qual (PCR) (Negative) Imaging Data Chest x-ray: Radiologist's impression: Marked emphysematous change of lungs with mild chronic coarse interstitial lung markings. No acute airways disease. No focal consolidation. No pleural effusion. No pulmonary vascular congestion. There is no pneumothorax. Heart size is normal. Cardiac and mediastinal contours are normal. XR/XR chest 1V IMPRESSION: Marked emphysematous change of lungs. No acute abnormality of the chest. ECG Data Attestation: I personally reviewed and interpreted this ECG as follows: (One hundred sixty-five, sinus rhythm, first-degree AV block, no ST segment depression or elevation, T-wave inversion in V2 V3, QTC 445, no EKG changes since December 2020) Discharge Plan Discharge Clinical Impression: COPD with exacerbation Patient Disposition: Admitted As Inpatient Prescriptions: No Action atorvastatin 10 mg tablet 1 tab PO DAILY@1800 RF: 0 alprazolam 0.25 mg tablet 1 tab PO DAILY PRN (Reason: anxiety) RF: 0 sertraline 50 mg tablet 1 tab PO DAILY@1800 RF: 0 Belbuca 300 mcg film 1 strip PO BID RF: 0 albuterol sulfate 90 mcg/actuation HFA aerosol inhaler 2 inh inhalation Q4H PRN (Reason: copd) RF: 0 hydrocodone-acetaminophen 10-325 mg tablet 1 tab PO 8XD PRN (Reason: Pain) RF: 0 aspirin 81 mg tablet,delayed release (DR/EC) 81 mg PO DAILY@1800 RF: 0 lisinopril 5 mg tablet 5 mg PO DAILY@1800 RF: 0
[2021-05-15] MEDS: 0.9 % Sodium Chloride 1,000 ML 999 ML IVCONT (16:46)
[2021-05-15] MEDS: methylPREDNISolone Sod Succ 125 MG/2 ML VIAL IVPUSH (16:46)
[2021-05-15 16:58] VITALS: PULSE 68; O2SAT 94
[2021-05-15] MEDS: Albuterol/Iprat 2.5/0.5MG 3 ML AMPUL.NEB INHALE ×2 (16:58→20:04)
[2021-05-15 17:22] LABS: MANUAL DIFF FLAG NO
[2021-05-15 17:23] LABS: Basophils Percent Auto 0.4 % (0-2); Eosinophils Absolute Auto 0.1 X10*3/uL (0.0-0.4); Hematocrit 46.9 % (42-52); Hemoglobin 15.2 g/dl (14.0-18.0); Imm Gran Abs Auto 0.04 X10*3/uL (0.00-0.03); Imm Gran Pct Auto 0.4 % (0.0-0.4); Lymphocytes Absolute Auto 2.3 X10*3/uL (1.2-4.9); Mean Corpuscular HGB Conc 32.4 g/dl (31.0-36.0); Mean Corpuscular Hemoglobin 31.5 pg (27.0-33.0); Mean Corpuscular Volume 97.1 fL (80-98); Monocytes Absolute Auto 0.8 X10*3/uL (0.1-1.2); Monocytes Percent Auto 7.8 % (2-11); Neutrophils Absolute Auto 6.8 X10*3/uL (2.0-8.3); Neutrophils Percent Auto 67.4 % (45-73); Platelet Count 266 X10*3/uL (160-400); Red Blood Count 4.83 X10*6/uL (4.60-5.80); Red Cell Distribution Width 15.5 % (11.0-16.0); White Blood Count 10.1 X10*3/uL (4.8-10.8)
[2021-05-15 17:33] LABS: INTERNATIONAL NORM RATIO 1.2 (0.9-1.1); Prothrombin Time 14.8 SEC (10.8-13.0)
[2021-05-15 17:50] LABS: Alanine Aminotransferase 18 U/L (0-40); Albumin Level 3.9 g/dL (3.5-5.0); Alkaline Phosphatase 99 U/L (39-117); Anion Gap 12 (12-20); Aspartate Amino Transferase 20 U/L (5-37); Bilirubin Direct 0.5 mg/dL (0.0-0.5); Bilirubin Total 1.2 mg/dL (0.0-1.0); Blood Urea Nitrogen 20 mg/dL (9-16); Calcium 9.1 mg/dL (8.4-10.2); Carbon Dioxide 24 mmol/L (22-29); Chloride 108 mmol/L (96-108); Creatinine Clr Calc Pharmacy 62.1; Estimated Glomerular Filt Rate 59; Glucose Random 99 mg/dL (60-115); Potassium 4.4 mmol/L (3.3-5.1); Sodium 140 mmol/L (135-145); Total Protein 7.2 g/dL (6.5-8.0)
[2021-05-15 17:54] LABS: B Type Natriuretic Peptide 114 pg/mL (<100); Troponin-I High Sensitivity 7.3 ng/L (<3.5-35.0)
[2021-05-15 18:03] LABS: Lactic Acid 1.3 mmol/L (0.5-2.0)
[2021-05-15 18:03] LABS: Influenza A PCR NEGATIVE (Negative); Influenza B PCR NEGATIVE (Negative); Resp Syncy Virus RNA Qual PCR NEGATIVE (Negative); SARS COV2 PCR INHOUSE NEGATIVE (Negative)
[2021-05-15] MEDS: levoFLOXacin/D5W 500 MG/100 ML PIGGYBACK 100 MG IV (18:11)
[2021-05-15 18:55] LABS: Venous Blood Gas Refer to POC result
[2021-05-15 18:59] LABS: VBG Base Excess -5.9 mmol/L; VBG HCO3 18 mmol/L (22-26); VBG pCO2 32 mmHg; VBG pH 7.35 (7.32-7.43); VBG pO2 55 mmHg
[2021-05-15 19:46] VITALS: BP 145/79; PULSE 76; RESP 12; TEMP 37.3; O2SAT 91
[2021-05-15 20:05] VITALS: PULSE 83; O2SAT 89
[2021-05-15 20:56] LABS: D Dimer 838 NG/ML
[2021-05-15 21:03] VITALS: BP 133/79; PULSE 84; RESP 20; TEMP 36.6; O2SAT 90
[2021-05-15] MEDS: methylPREDNISolone Sod Succ 40 MG/ML VIAL IVPUSH (21:12)
[2021-05-15] MEDS: Azithromycin 500 MG TABLET PO (21:12)
[2021-05-15] MEDS: Enoxaparin Sodium 40 MG/0.4 ML SYRINGE SUBCUT (21:12)
[2021-05-15] MEDS: Atorvastatin Calcium 10 MG TABLET PO (21:33)
[2021-05-15] MEDS: Sertraline HCL 50 MG TABLET PO (21:34)
[2021-05-15] MEDS: lisinopriL 5 MG TABLET PO (21:34)
[2021-05-15] MEDS: Aspirin Enteric Coated 81 MG TABLET.DR PO (21:34)
[2021-05-15 21:37] LABS: Troponin-I High Sensitivity 7.7 ng/L (<3.5-35.0)
[2021-05-15] MEDS: ALPRAZolam 0.25 MG TABLET PO (21:50)
--- NOTE | 2021-05-15 21:51 | PM.IMHP ---
History of Present Illness Date of Service: 05/15/21 Chief Complaint: Shortness of breath 76-year-old male with a past medical history of hypertension, COPD, chronic respiratory failure on 2 L-3L of home oxygen, pulmonary nodules, chronic shoulder pain on buprenorphine and hydrocodone at home, anxiety, depression presented to the hospital chief complaint of shortness of breath. Patient reports dry cough. Patient reports the shortness or breath has been gradually worsening. Mentions it is more short of breath on exertion. Denies any chest pain or palpitations. Denie any fevers. Denies any recent travel sick contacts. Per patient's family patient was noted to be in mid 70s on oxygen saturation did increase his home oxygen levels with no significant improvement; subsequently brought into the ER for further evaluation. Review of all other systems is negative except mentioned above; ER course: Per ER team patient was requiring 4 L of supplemental oxygen; noted to have wheezing. Given steroids and nebulizations. Admitted for COPD exacerbation. [facility], [facility] Medical History (Updated 05/17/21 @ 11:23 by Emanuel Baptiste MD) Acute on chronic respiratory failure with hypoxemia Atherosclerotic cardiovascular disease Essential hypertension Other and unspecified hyperlipidemia Pulmonary nodule seen on imaging study Family History (Updated 11/29/20 @ 10:52 by DEAN Lombardo) Father No problems noted. Mother No problems noted. Surgical History History of cardiac catheterization (~12/09/19) Social History (Updated 10/11/20 @ 14:18 by Piper Irvin MA) Household Members: Spouse Housing: House Do you presently have visiting nurse or other home services: No Alcohol intake: never Patient Tobacco Use Status: Former Tobacco user Smoked in Last 30 Days: No Second Hand Smoke Exposure: No Use of substances other than those prescribed or required for medical reasons: No Currently Displaying Signs/Symptoms of Drug Intoxication Withdrawal: No Have you been hit, kicked, punched, or otherwise hurt by someone within the past year? If so, by whom?: No Do you feel safe in your current relationship?: Yes Is there a partner from a previous relationship who is making you feel unsafe now?: No Are you made to feel afraid or neglected: No Advance Directives: No Advance Directives Information Provided: Yes Do you have thoughts of harming others: None Do you have a plan to hurt others: No Plan Recently lost weight without trying: Yes How much weight loss: 14-23 pounds Eating poorly because of decreased appetite: No Nutrition screen score: 4 Nutrition Risks: No Nutritional Risk Poor oral hygiene: No service: Yes Current occupational status: retired Meds Allergies Allergy/AdvReac Type Severity Reaction Status Date / Time No Known Allergies Allergy Verified 02/07/21 14:02 [No Known Allergies*] Active Medications: Current Medications Generic Name Dose Route Start Last Admin Trade Name Freq PRN Reason Stop Dose Admin Acetaminophen 650 mg 05/15/21 19:13 Acetaminophen 325 Mg Tablet PO Q6H PRN Pain, Mild (Pain Scale 1-3) Hydrocodone Bitart/Acetaminophen 1 tab 05/15/21 19:19 05/15/21 21:34 Hydrocodone Bit/Acetam 10/325 Tablet PO 1 tab 8XD PRN Administration Pain Albuterol Sulfate 2 puff 05/15/21 19:19 Albuterol Sulfate 90 Mcg 8 Gm Inhaler INHALE Q4H PRN copd Albuterol/Ipratropium 3 ml 05/15/21 20:00 05/15/21 20:04 Albuterol/Iprat 2.5/0.5mg 3 Ml Ampul.Neb INHALE 3 ml RQ4H WHILE AWAKE BINDU Administration Alprazolam 0.25 mg 05/15/21 19:19 Alprazolam 0.25 Mg Tablet PO DAILY PRN anxiety Aspirin 81 mg 05/15/21 21:00 05/15/21 21:34 Aspirin Enteric Coated 81 Mg Tablet. PO 81 mg BEDTIME BINDU Administration Atorvastatin Calcium 10 mg 05/15/21 21:00 05/15/21 21:33 Atorvastatin Calcium 10 Mg Tablet PO 10 mg BEDTIME BINDU Administration Azithromycin 500 mg 05/15/21 20:00 05/15/21 21:12 Azithromycin 500 Mg Tablet PO 500 mg Q24H BINDU Administration Enoxaparin Sodium 40 mg 05/15/21 20:00 05/15/21 21:12 Enoxaparin Sodium 40 Mg/0.4 Ml Syringe SUBCUT 40 mg Q24H BINDU Administration Famotidine 20 mg 05/16/21 09:00 Famotidine 20 Mg Tablet PO DAILY BINDU Hydromorphone HCl 1 mg 05/15/21 21:47 Hydromorphone Hcl 2 Mg Tablet PO Q6H PRN Breakthrough Pain Lisinopril 5 mg 05/15/21 21:00 05/15/21 21:34 Lisinopril 5 Mg Tablet PO 5 mg BEDTIME BINDU Administration Protocol Methylprednisolone Sodium Succinate 40 mg 05/15/21 19:30 05/15/21 21:12 Methylprednisolone Sod Succ 40 Mg/Ml Vial IVPUSH 40 mg Q6H BINDU Administration Nitroglycerin 0.4 mg 05/15/21 19:13 Nitroglycerin 0.4 Mg Tab.Subl SUBLINGUAL Q5M PRN Chest Pain Pharmacy Consult 1 each 05/15/21 16:40 Consult Rx Perform Med Rec MISCELLANE ONCE PRN Consult order Senna 17.2 mg 05/15/21 19:13 Sennosides 8.6 Mg Tablet PO BEDTIME PRN Constipation Sertraline HCl 50 mg 05/15/21 21:00 05/15/21 21:34 Sertraline Hcl 50 Mg Tablet PO 50 mg BEDTIME [facility] Administration Sodium Chloride 3 ml 05/16/21 00:00 0.9 % Sodium Chloride Flush 3 Ml Syringe IVFLUSH [facility] Home Medications Medication Instructions Recorded Confirmed Last Taken Type aspirin 81 mg tablet,delayed 81 mg PO DAILY@1800 10/11/20 05/15/21 05/14/21 History release lisinopril 5 mg tablet 5 mg PO DAILY@1800 10/11/20 05/15/21 05/14/21 History Belbuca 1 strip PO BID 05/15/21 05/15/21 05/15/21 12:00 History albuterol sulfate 2 inh INHALATION Q4H PRN 05/15/21 05/15/21 Unknown History alprazolam 1 tab PO DAILY PRN 05/15/21 05/15/21 05/15/21 History atorvastatin 1 tab PO DAILY@1800 05/15/21 05/15/21 05/14/21 History hydrocodone-acetaminophen 1 tab PO 8XD PRN 05/15/21 05/15/21 05/15/21 History sertraline 1 tab PO DAILY@1800 05/15/21 05/15/21 05/14/21 History Physical Exam Vital Signs and Narrative: Vital Signs: Last Vital Signs Temp 97.8 F 05/15/21 21:03 Pulse 84 05/15/21 21:03 Resp 20 05/15/21 21:03 BP 133/79 05/15/21 21:03 Pulse Ox 90 L 05/15/21 21:03 Oxygen Flow Rate 4 05/15/21 16:34 Body Mass Index 30.2 Gen: Appears be in no acute distress; speaks in full sentences HEENT: NCAT, Moist mucosa. Pulmonary: Course breath sounds, occasional expiratory wheezing CVS: Normal S1-S2 Abdomen: BS+, Soft, Nontender Extremities: Warm well perfused Neuro: Alert and awake. Results Labs CBC and Chem 7: 05/17/21 05:10 05/17/21 05:10 Labs: Laboratory Results - last 24 hr 05/15/21 05/15/21 05/15/21 17:16 17:17 17:17 MCV 97.1 MCH 31.5 MCHC 32.4 RDW 15.5 Plt Count 266 D MPV 9.0 L Immature Gran % (Auto) 0.4 Neut % (Auto) 67.4 Lymph % (Auto) 23.0 [place] % (Auto) 7.8 Eos % (Auto) 1.0 Baso % (Auto) 0.4 Lymph # (Auto) 2.3 [place] # (Auto) 0.8 Eos # (Auto) 0.1 Baso # (Auto) 0.0 Abs Immat Gran (auto) 0.04 H Absolute Neuts (auto) 6.8 Absolute Nucleated RBC 0.000 Nucleated RBC % (auto) 0.0 PT 14.8 H INR 1.2 H D-Dimer 838 VBG pH VBG pCO2 VBG pO2 VBG HCO3 VBG O2 Saturation VBG Base Excess Anion Gap Estim Creat Clear Calc Estimated GFR Random Glucose Lactic Acid Calcium Total Bilirubin Direct Bilirubin AST ALT Alkaline Phosphatase Troponin I High Sens B-Natriuretic Peptide Total Protein Albumin Coronavirus (PCR) NEGATIVE Influenza Type A (PCR) NEGATIVE Influenza Type B (PCR) NEGATIVE RSV RNA Qual (PCR) NEGATIVE 05/15/21 05/15/21 05/15/21 17:17 17:17 17:17 MCV MCH MCHC RDW Plt Count MPV Immature Gran % (Auto) Neut % (Auto) Lymph % (Auto) [place] % (Auto) Eos % (Auto) Baso % (Auto) Lymph # (Auto) [place] # (Auto) Eos # (Auto) Baso # (Auto) Abs Immat Gran (auto) Absolute Neuts (auto) Absolute Nucleated RBC Nucleated RBC % (auto) PT INR D-Dimer VBG pH VBG pCO2 VBG pO2 VBG HCO3 VBG O2 Saturation VBG Base Excess Anion Gap 12 Estim Creat Clear Calc 62.1 Estimated GFR 59 Random Glucose 99 D Lactic Acid 1.3 Calcium 9.1 D Total Bilirubin 1.2 H Direct Bilirubin 0.5 AST 20 ALT 18 Alkaline Phosphatase 99 Troponin I High Sens 7.3 B-Natriuretic Peptide 114 H Total Protein 7.2 Albumin 3.9 Coronavirus (PCR) Influenza Type A (PCR) Influenza Type B (PCR) RSV RNA Qual (PCR) 05/15/21 05/15/21 18:51 21:03 MCV MCH MCHC RDW Plt Count MPV Immature Gran % (Auto) Neut % (Auto) Lymph % (Auto) [place] % (Auto) Eos % (Auto) Baso % (Auto) Lymph # (Auto) [place] # (Auto) Eos # (Auto) Baso # (Auto) Abs Immat Gran (auto) Absolute Neuts (auto) Absolute Nucleated RBC Nucleated RBC % (auto) PT INR D-Dimer VBG pH 7.35 VBG pCO2 32 VBG pO2 55 VBG HCO3 18 L VBG O2 Saturation 86.0 VBG Base Excess -5.9 Anion Gap Estim Creat Clear Calc Estimated GFR Random Glucose Lactic Acid Calcium Total Bilirubin Direct Bilirubin AST ALT Alkaline Phosphatase Troponin I High Sens 7.7 B-Natriuretic Peptide Total Protein Albumin Coronavirus (PCR) Influenza Type A (PCR) Influenza Type B (PCR) RSV RNA Qual (PCR) Imaging Radiologist's Impressions: Impressions Chest X-Ray 05/15/21 16:40 IMPRESSION: Marked emphysematous change of lungs. No acute abnormality of the chest. Assessment and Plan (1) COPD with exacerbation: Status: Acute 76-year-old male with a past medical history of hypertension, COPD on 3 L of home oxygen, anxiety, depression presented to the hospital with chief complaint of shortness of breath. Noted to be wheezing. Admitted for COPD exacerbation. COPD exacerbation: Patient has increased oxygen requirement of 4 L. Male keep the goal oxygen saturation 93%. DuoNebs p.r.n. and standing Solu-Medrol IV Azithromycin Will also obtain a D-dimer . DVT prophylaxis: Lovenox Code status: Full code Quality Stroke Does the patient have a stroke diagnosis?: No VTE Prior VTE?: No VTE Risk Level:: Medical - moderate - high VTE Device Contraindication: N/A - Device Ordered VTE Drug Contraindication: N/A - Med Ordered
[2021-05-15] MEDS: iohexoL 350 MG/ML 100 ML INFUS..BTL IV (22:52)
[2021-05-15 23:16] VITALS: BP 124/60; PULSE 98; RESP 18; TEMP 36.5; O2SAT 89
[2021-05-16] VITALS (10 sets, daily range): BP systolic 121–146; BP diastolic 63–73; PULSE 79–108; RESP 12–20; TEMP 36.1–36.5; O2SAT 86–94
[2021-05-16] MEDS: 0.9 % Sodium Chloride Flush 3 ML SYRINGE IVFLUSH ×4 (01:11→21:00)
[2021-05-16] MEDS: methylPREDNISolone Sod Succ 40 MG/ML VIAL IVPUSH ×4 (01:11→20:40)
[2021-05-16 06:13] LABS: Hematocrit 44.1 % (42-52); Hemoglobin 14.6 g/dl (14.0-18.0); Imm Gran Abs Auto 0.02 X10*3/uL (0.00-0.03); Imm Gran Pct Auto 0.3 % (0.0-0.4); Lymphocytes Absolute Auto 0.9 X10*3/uL (1.2-4.9); Lymphocytes Percent Auto 14.5 % (20-40); MANUAL DIFF FLAG SCAN; Mean Corpuscular HGB Conc 33.1 g/dl (31.0-36.0); Mean Corpuscular Hemoglobin 31.7 pg (27.0-33.0); Mean Corpuscular Volume 95.9 fL (80-98); Mean Platelet Volume 9.7 fL (9.4-12.4); Monocytes Absolute Auto 0.1 X10*3/uL (0.1-1.2); Monocytes Percent Auto 0.8 % (2-11); Neutrophils Absolute Auto 5.4 X10*3/uL (2.0-8.3); Neutrophils Percent Auto 84.4 % (45-73); Platelet Count 291 X10*3/uL (160-400); Red Cell Distribution Width 15.3 % (11.0-16.0); SCAN SMEAR FLAG 1; White Blood Count 6.4 X10*3/uL (4.8-10.8)
[2021-05-16 06:43] LABS: SLIDE REVIEW VERIFIED
[2021-05-16 06:45] LABS: Anion Gap 14 (12-20); Blood Urea Nitrogen 26 mg/dL (9-16); Calcium 9.3 mg/dL (8.4-10.2); Carbon Dioxide 20 mmol/L (22-29); Chloride 110 mmol/L (96-108); Creatinine Clr Calc Pharmacy 61.6; Estimated Glomerular Filt Rate 58; Glucose Random 147 mg/dL (60-115); Potassium 4.6 mmol/L (3.3-5.1); Sodium 139 mmol/L (135-145)
[2021-05-16] MEDS: Albuterol/Iprat 2.5/0.5MG 3 ML AMPUL.NEB INHALE ×4 (08:07→20:00)
[2021-05-16 09:00] LABS: C Reactive Protein 0.45 mg/dL (< or = 0.50)
[2021-05-16] MEDS: Famotidine 20 MG TABLET PO (09:03)
[2021-05-16 09:29] LABS: Procalcitonin 0.04 ng/mL
--- NOTE | 2021-05-16 09:48 | MHC.CM.PN ---
met with pt who is very napaimute,,pt reports that he lives with his has home 02 and no sercveis his will transport him home dc plan home no services
[2021-05-16 11:43] LABS: Adenovirus PCR Not Detected (Not Detect.); Bordetella parapertussis PCR Not Detected (Not Detect.); Bordetella pertussis PCR Not Detected (Not Detect.); Chlamydia pneumoniae PCR Not Detected (Not Detect.); Coronavirus 229E PCR Not Detected (Not Detect.); Coronavirus HKU1 PCR Not Detected (Not Detect.); Coronavirus NL63 PCR Not Detected (Not Detect.); Coronavirus OC43 PCR Not Detected (Not Detect.); Human metapneumovirus PCR Not Detected (Not Detect.); Influenza A PCR Not Detected (Not Detect.); Influenza B PCR Not Detected (Not Detect.); Mycoplasma pneumoniae PCR Not Detected (Not Detect.); Parainfluenza 1 PCR Not Detected (Not Detect.); Parainfluenza 2 PCR Not Detected (Not Detect.); Parainfluenza 3 PCR Not Detected (Not Detect.); Parainfluenza 4 PCR Not Detected (Not Detect.); RSV PCR Not Detected (Not Detect.); Rhino/Enterovirus PCR Not Detected (Not Detect.); SARS-CoV-2 PCR Not Detected (Not Detect.)
--- NOTE | 2021-05-16 12:03 | MHC.CLN ---
RE: CONSULT PT REPORTS 20# WT LOSS WITHOUT TRYING PER NURSING ASSESSMENT PT'S UBW 225#; CURRENT WT 210# PT HAS SLOW WT LOSS X 2 YEARS AND DOES NOT TRIGGER FOR SIGNIFICANT WT LOSS AT THIS TIME PT REMAINS OBESE FOR HT CONTINUE CURRENT CARE PLAN
--- NOTE | 2021-05-16 16:09 | P.PNIM_ITS ---
Subjective Subjective Date of Service: 05/16/21 Interval History: dyspnea improved no cough or purulent sputum Physical Exam Vital Signs: Vital Signs: Last Vital Signs Temp 97 F 05/16/21 15:33 Pulse 81 05/16/21 15:37 Resp 12 05/16/21 15:33 BP 133/66 05/16/21 15:33 Pulse Ox 92 05/16/21 15:33 Oxygen Flow Rate 4 05/15/21 16:34 Body Mass Index 30.2 Gen: in no acute distress HEENT: sclera anicteric, moist mucus membranes Neck: supple Lungs: soft expiratory wheezes; prolonged expiratory phase Heart: regular rate and rhythm, no murmurs Abd: soft, non-tender, non-distended Ext: no edema Skin: warm/well-perfused Neuro: alert and oriented x3, no focal findings Psych: appropriate affect Objective Data Current Medications Generic Name Dose Route Start Last Admin Trade Name Freq PRN Reason Stop Dose Admin Acetaminophen 650 mg 05/15/21 19:13 Acetaminophen 325 Mg Tablet PO Q6H PRN Pain, Mild (Pain Scale 1-3) Hydrocodone Bitart/Acetaminophen 1 tab 05/15/21 19:19 05/16/21 02:04 Hydrocodone Bit/Acetam 10/325 Tablet PO 1 tab 8XD PRN Administration Pain Albuterol Sulfate 2 puff 05/15/21 19:19 Albuterol Sulfate 90 Mcg 8 Gm Inhaler INHALE Q4H PRN copd Albuterol/Ipratropium 3 ml 05/15/21 20:00 05/16/21 15:37 Albuterol/Iprat 2.5/0.5mg 3 Ml Ampul.Neb INHALE 3 ml RQ4H WHILE AWAKE BINDU Administration Alprazolam 0.25 mg 05/15/21 19:19 05/15/21 21:50 Alprazolam 0.25 Mg Tablet PO 0.25 mg DAILY PRN Administration anxiety Aspirin 81 mg 05/15/21 21:00 05/15/21 21:34 Aspirin Enteric Coated 81 Mg Tablet.Dr PO 81 mg BEDTIME BINDU Administration Atorvastatin Calcium 10 mg 05/15/21 21:00 05/15/21 21:33 Atorvastatin Calcium 10 Mg Tablet PO 10 mg BEDTIME BINDU Administration Azithromycin 500 mg 05/15/21 20:00 05/15/21 21:12 Azithromycin 500 Mg Tablet PO 500 mg Q24H BINDU Administration Enoxaparin Sodium 40 mg 05/15/21 20:00 05/15/21 21:12 Enoxaparin Sodium 40 Mg/0.4 Ml Syringe SUBCUT 40 mg Q24H BINDU Administration Famotidine 20 mg 05/16/21 09:00 05/16/21 09:03 Famotidine 20 Mg Tablet PO 20 mg DAILY BINDU Administration Hydromorphone HCl 1 mg 05/15/21 21:47 Hydromorphone Hcl 2 Mg Tablet PO Q6H PRN Breakthrough Pain Lisinopril 5 mg 05/15/21 21:00 05/15/21 21:34 Lisinopril 5 Mg Tablet PO 5 mg BEDTIME BINDU Administration Protocol Methylprednisolone Sodium Succinate 40 mg 05/15/21 19:30 05/16/21 15:31 Methylprednisolone Sod Succ 40 Mg/Ml Vial IVPUSH 40 mg Q6H BINDU Administration Nitroglycerin 0.4 mg 05/15/21 19:13 Nitroglycerin 0.4 Mg Tab.Subl SUBLINGUAL Q5M PRN Chest Pain Patient Own 1 each 05/16/21 14:00 05/16/21 15:31 Medication ( BUCCAL 1 each Buprenorphine 300 BID BINDU Administration Mcg Film) Pharmacy Consult 1 each 05/15/21 16:40 Consult Rx Perform Med Rec MISCELLANE ONCE PRN Consult order Senna 17.2 mg 05/15/21 19:13 Sennosides 8.6 Mg Tablet PO BEDTIME PRN Constipation Sertraline HCl 50 mg 05/15/21 21:00 05/15/21 21:34 Sertraline Hcl 50 Mg Tablet PO 50 mg BEDTIME BINDU Administration Sodium Chloride 3 ml 05/16/21 00:00 05/16/21 09:04 0.9 % Sodium Chloride Flush 3 Ml Syringe IVFLUSH 3 ml QSHIFT BINDU Administration Labs CBC & Chem 7: 05/16/21 05:16 05/16/21 05:16 Labs: Laboratory Results - last 24 hr 05/15/21 05/15/21 05/15/21 17:16 17:17 17:17 WBC 10.1 RBC 4.83 Hgb 15.2 Hct 46.9 MCV 97.1 MCH 31.5 MCHC 32.4 RDW 15.5 Plt Count 266 D MPV 9.0 L Immature Gran % (Auto) 0.4 Neut % (Auto) 67.4 Lymph % (Auto) 23.0 Mckinley % (Auto) 7.8 Eos % (Auto) 1.0 Baso % (Auto) 0.4 Lymph # (Auto) 2.3 Mckinley # (Auto) 0.8 Eos # (Auto) 0.1 Baso # (Auto) 0.0 Abs Immat Gran (auto) 0.04 H Absolute Neuts (auto) 6.8 Absolute Nucleated RBC 0.000 Nucleated RBC % (auto) 0.0 Smear Tech's Comments PT 14.8 H INR 1.2 H D-Dimer 838 VBG pH VBG pCO2 VBG pO2 VBG HCO3 VBG O2 Saturation VBG Base Excess Sodium Potassium Chloride Carbon Dioxide Anion Gap BUN Creatinine Estim Creat Clear Calc Estimated GFR Random Glucose Lactic Acid Calcium Total Bilirubin Direct Bilirubin AST ALT Alkaline Phosphatase Troponin I High Sens C-Reactive Protein B-Natriuretic Peptide Total Protein Albumin Procalcitonin Respiratory Panel Maldonado Adenovirus (Rapid PCR) B.pert (TEM-PCR) B.parapertussis DNA PCR C. pneumoniae DNA (PCR) Coronavirus (PCR) NEGATIVE Coronavirus OC43 (PCR) Coronavirus HKU1 (PCR) Coronavirus 229E (PCR) Coronavirus NL63 (PCR) Human Metapneumovir PCR Influenza A (RT-PCR) Influenza Type A (PCR) NEGATIVE Influenza B (RT-PCR) Influenza Type B (PCR) NEGATIVE M. pneumoniae (PCR) Parainfluenza 1 (PCR) Parainfluenza 2 (PCR) Parainfluenza 3 (PCR) Parainfluenza 4 (PCR) RSV (PCR) RSV RNA Qual (PCR) NEGATIVE Entero/Rhino (PCR) SARS-CoV-2 RNA (RT-PCR) 05/15/21 05/15/21 05/15/21 17:17 17:17 17:17 WBC RBC Hgb Hct MCV MCH MCHC RDW Plt Count MPV Immature Gran % (Auto) Neut % (Auto) Lymph % (Auto) Mckinley % (Auto) Eos % (Auto) Baso % (Auto) Lymph # (Auto) Mckinley # (Auto) Eos # (Auto) Baso # (Auto) Abs Immat Gran (auto) Absolute Neuts (auto) Absolute Nucleated RBC Nucleated RBC % (auto) Smear Tech's Comments PT INR D-Dimer VBG pH VBG pCO2 VBG pO2 VBG HCO3 VBG O2 Saturation VBG Base Excess Sodium 140 Potassium 4.4 Chloride 108 Carbon Dioxide 24 Anion Gap 12 BUN 20 H Creatinine 1.21 Estim Creat Clear Calc 62.1 Estimated GFR 59 Random Glucose 99 D Lactic Acid 1.3 Calcium 9.1 D Total Bilirubin 1.2 H Direct Bilirubin 0.5 AST 20 ALT 18 Alkaline Phosphatase 99 Troponin I High Sens 7.3 C-Reactive Protein B-Natriuretic Peptide 114 H Total Protein 7.2 Albumin 3.9 Procalcitonin Respiratory Panel Maldonado Adenovirus (Rapid PCR) B.pert (TEM-PCR) B.parapertussis DNA PCR C. pneumoniae DNA (PCR) Coronavirus (PCR) Coronavirus OC43 (PCR) Coronavirus HKU1 (PCR) Coronavirus 229E (PCR) Coronavirus NL63 (PCR) Human Metapneumovir PCR Influenza A (RT-PCR) Influenza Type A (PCR) Influenza B (RT-PCR) Influenza Type B (PCR) M. pneumoniae (PCR) Parainfluenza 1 (PCR) Parainfluenza 2 (PCR) Parainfluenza 3 (PCR) Parainfluenza 4 (PCR) RSV (PCR) RSV RNA Qual (PCR) Entero/Rhino (PCR) SARS-CoV-2 RNA (RT-PCR) 05/15/21 05/15/21 05/16/21 18:51 21:03 05:16 WBC 6.4 RBC 4.60 Hgb 14.6 Hct 44.1 MCV 95.9 MCH 31.7 MCHC 33.1 RDW 15.3 Plt Count 291 MPV 9.7 Immature Gran % (Auto) 0.3 Neut % (Auto) 84.4 H Lymph % (Auto) 14.5 L Mckinley % (Auto) 0.8 L Eos % (Auto) 0.0 Baso % (Auto) 0.0 Lymph # (Auto) 0.9 L Mckinley # (Auto) 0.1 Eos # (Auto) 0.0 Baso # (Auto) 0.0 Abs Immat Gran (auto) 0.02 Absolute Neuts (auto) 5.4 Absolute Nucleated RBC 0.000 Nucleated RBC % (auto) 0.0 Smear Tech's Comments VERIFIED PT INR D-Dimer VBG pH 7.35 VBG pCO2 32 VBG pO2 55 VBG HCO3 18 L VBG O2 Saturation 86.0 VBG Base Excess -5.9 Sodium Potassium Chloride Carbon Dioxide Anion Gap BUN Creatinine Estim Creat Clear Calc Estimated GFR Random Glucose Lactic Acid Calcium Total Bilirubin Direct Bilirubin AST ALT Alkaline Phosphatase Troponin I High Sens 7.7 C-Reactive Protein B-Natriuretic Peptide Total Protein Albumin Procalcitonin Respiratory Panel Maldonado Adenovirus (Rapid PCR) B.pert (TEM-PCR) B.parapertussis DNA PCR C. pneumoniae DNA (PCR) Coronavirus (PCR) Coronavirus OC43 (PCR) Coronavirus HKU1 (PCR) Coronavirus 229E (PCR) Coronavirus NL63 (PCR) Human Metapneumovir PCR Influenza A (RT-PCR) Influenza Type A (PCR) Influenza B (RT-PCR) Influenza Type B (PCR) M. pneumoniae (PCR) Parainfluenza 1 (PCR) Parainfluenza 2 (PCR) Parainfluenza 3 (PCR) Parainfluenza 4 (PCR) RSV (PCR) RSV RNA Qual (PCR) Entero/Rhino (PCR) SARS-CoV-2 RNA (RT-PCR) 05/16/21 05/16/21 05/16/21 05:16 05:16 11:25 WBC RBC Hgb Hct MCV MCH MCHC RDW Plt Count MPV Immature Gran % (Auto) Neut % (Auto) Lymph % (Auto) Mckinley % (Auto) Eos % (Auto) Baso % (Auto) Lymph # (Auto) Mckinley # (Auto) Eos # (Auto) Baso # (Auto) Abs Immat Gran (auto) Absolute Neuts (auto) Absolute Nucleated RBC Nucleated RBC % (auto) Smear Tech's Comments PT INR D-Dimer VBG pH VBG pCO2 VBG pO2 VBG HCO3 VBG O2 Saturation VBG Base Excess Sodium 139 Potassium 4.6 Chloride 110 H Carbon Dioxide 20 L Anion Gap 14 BUN 26 H Creatinine 1.22 Estim Creat Clear Calc 61.6 Estimated GFR 58 Random Glucose 147 H D Lactic Acid Calcium 9.3 Total Bilirubin Direct Bilirubin AST ALT Alkaline Phosphatase Troponin I High Sens C-Reactive Protein 0.45 B-Natriuretic Peptide Total Protein Albumin Procalcitonin 0.04 Respiratory Panel Maldonado See Note Adenovirus (Rapid PCR) Not Detected B.pert (TEM-PCR) Not Detected B.parapertussis DNA PCR Not Detected C. pneumoniae DNA (PCR) Not Detected Coronavirus (PCR) Coronavirus OC43 (PCR) Not Detected Coronavirus HKU1 (PCR) Not Detected Coronavirus 229E (PCR) Not Detected Coronavirus NL63 (PCR) Not Detected Human Metapneumovir PCR Not Detected Influenza A (RT-PCR) Not Detected Influenza Type A (PCR) Influenza B (RT-PCR) Not Detected Influenza Type B (PCR) M. pneumoniae (PCR) Not Detected Parainfluenza 1 (PCR) Not Detected Parainfluenza 2 (PCR) Not Detected Parainfluenza 3 (PCR) Not Detected Parainfluenza 4 (PCR) Not Detected RSV (PCR) Not Detected RSV RNA Qual (PCR) Entero/Rhino (PCR) Not Detected SARS-CoV-2 RNA (RT-PCR) Not Detected Quality Stroke Does the patient have a stroke diagnosis?: No VTE Prior VTE?: No VTE Risk Level:: Medical - moderate - high VTE Device Contraindication: N/A - Device Ordered VTE Drug Contraindication: N/A - Med Ordered Assessment and Plan (1) COPD with exacerbation: Status: Acute Assessment and Plan: hospital d#2 76yo M with COPD, chronic hypoxic respiratory failure on home O2 2-3L via NC admitted for COPD exacerbation, worsening hypoxia with SaO2 77% # COPD exacerbation - taper IV steroids d#2, continue nebulizer treatments, d/c azithromycin in absence of sputum/purulence # acute/chronic hypoxic respiratory failure - wean O2 as tolerated # HTN - continue lisinopril # CAD - continue ASA, statin, prn NTG # mood disorder - continue sertraline # chronic pain - continue buprenorphine film- pt brought in from home - continue prn Percocet # VTE ppx - LMWH
[2021-05-16] MEDS: Aspirin Enteric Coated 81 MG TABLET.DR PO (20:40)
[2021-05-16] MEDS: Sertraline HCL 50 MG TABLET PO (20:40)
[2021-05-16] MEDS: lisinopriL 5 MG TABLET PO (20:40)
[2021-05-16] MEDS: Atorvastatin Calcium 10 MG TABLET PO (20:40)
[2021-05-16] MEDS: Enoxaparin Sodium 40 MG/0.4 ML SYRINGE SUBCUT (20:40)
--- NOTE | 2021-05-17 01:42 | PC.NURSE ---
Per patients MAR, patients home medication (300mcg Buprenorphine) was due to be administered at 21:00. Upon administration of 21:00 medications, patient informed this RN that he had received his morning dose late at 15:30 as it was brought in from home by his son. Pt states that he takes it every 12 hours and that it is too soon between doses due to the late admin of am dose. Pharmacy to floor to return patients [facility] as it is a med from home.
[2021-05-17] MEDS: methylPREDNISolone Sod Succ 40 MG/ML VIAL IVPUSH ×2 (02:35→07:26)
[2021-05-17 03:50] VITALS: BP 133/67; PULSE 70; RESP 18; TEMP 36.6; O2SAT 93
[2021-05-17 05:57] LABS: Hematocrit 42.7 % (42-52); Hemoglobin 13.9 g/dl (14.0-18.0); Mean Corpuscular HGB Conc 32.6 g/dl (31.0-36.0); Mean Corpuscular Hemoglobin 31.2 pg (27.0-33.0); Mean Platelet Volume 9.5 fL (9.4-12.4); Platelet Count 270 X10*3/uL (160-400); Red Blood Count 4.45 X10*6/uL (4.60-5.80); Red Cell Distribution Width 15.6 % (11.0-16.0); White Blood Count 17.1 X10*3/uL (4.8-10.8)
[2021-05-17 06:25] LABS: Anion Gap 17 (12-20); Blood Urea Nitrogen 37 mg/dL (9-16); Calcium 9.3 mg/dL (8.4-10.2); Carbon Dioxide 20 mmol/L (22-29); Chloride 109 mmol/L (96-108); Creatinine Clr Calc Pharmacy 56.9; Estimated Glomerular Filt Rate 53; Glucose Random 179 mg/dL (60-115); Potassium 4.9 mmol/L (3.3-5.1); Sodium 141 mmol/L (135-145)
[2021-05-17] MEDS: 0.9 % Sodium Chloride Flush 3 ML SYRINGE IVFLUSH (07:26)
[2021-05-17] MEDS: Famotidine 20 MG TABLET PO (07:27)
[2021-05-17 07:28] VITALS: BP 145/71; PULSE 73; RESP 18; TEMP 36.4; O2SAT 91
[2021-05-17 11:15] VITALS: BP 145/80; PULSE 77; RESP 20; TEMP 36.4; O2SAT 90
--- NOTE | 2021-05-17 11:23 | P.DS_ITS ---
DS: Providers Provider Date of Service: 05/17/21 Date of admission: 05/15/21 19:13 Primary care physician: Leeroy Zendejas MD DS: Diagnosis Discharge Diagnosis (1) COPD with exacerbation: Status: Acute (2) Acute on chronic respiratory failure with hypoxemia: Status: Acute DS: Medications Discharge Medications Home Medications: Home Medications Medication Instructions Recorded Confirmed aspirin 81 mg tablet,delayed 81 mg PO DAILY@1800 10/11/20 05/15/21 release lisinopril 5 mg tablet 5 mg PO DAILY@1800 10/11/20 05/15/21 Belbuca 1 strip PO BID 05/15/21 05/15/21 albuterol sulfate 2 inh INHALATION Q4H PRN 05/15/21 05/15/21 alprazolam 1 tab PO DAILY PRN 05/15/21 05/15/21 atorvastatin 1 tab PO DAILY@1800 05/15/21 05/15/21 hydrocodone-acetaminophen 1 tab PO 8XD PRN 05/15/21 05/15/21 sertraline 1 tab PO DAILY@1800 05/15/21 05/15/21 Previous Rx's Medication Instructions Recorded prednisone 40 mg PO DAILY #6 tab 05/17/21 tiotropium bromide 1 cap INHALATION DAILY #30 inh 05/17/21 DS: Summary Hospital Course Hospital Course: from admission history and physical by hospitalist Shahzad Francois, 05/15/21: 76-year-old male with a past medical history of hypertension, COPD, chronic respiratory failure on 2 L-3L of home oxygen, pulmonary nodules, chronic shoulder pain on buprenorphine and hydrocodone at home, anxiety, depression presented to the hospital chief complaint of shortness of breath. Patient reports dry cough. Patient reports the shortness or breath has been gradually worsening. Mentions it is more short of breath on exertion. Denies any chest pain or palpitations. Denie any fevers. Denies any recent travel sick contacts. Per patient's family patient was noted to be in mid 70s on oxygen saturation did increase his home oxygen levels with no significant improvement; subsequently brought into the ER for further evaluation. Review of all other systems is negative except mentioned above; ER course: Per ER team patient was requiring 4 L of supplemental oxygen; noted to have wheezing. Given steroids and nebulizations. Admitted for COPD exacerbation. The patient was admitted to [place] [facility] and treated with with IV glucocorticoids and nebulizer treatments. He did not have purulent sputum, so antibiotics were not continued. His dyspnea and wheezing resolved. Oxygenation improved on 3-4 L of oxygen via nasal cannula. He was discharged home on 3 more days of prednisone 40 mg PO daily and will continue home oxygen. He declined VNA services. He was instructed to follow up with his primary care doctor within 1 week. Time Spent with Patient Time attestation: Total time spent providing and/or coordinating discharge services: 35 Discharge coordination time: Greater than 30 minutes Quality: Stroke Does the patient have a stroke diagnosis?: No Physical Exam Vital Signs: Vital Signs: Last Vital Signs Temp 97.5 F 05/17/21 11:15 Pulse 77 05/17/21 11:15 Resp 20 05/17/21 11:15 BP 145/80 H 05/17/21 11:15 Pulse Ox 90 L 05/17/21 11:15 Oxygen Flow Rate 4 05/15/21 16:34 Body Mass Index 30.2 Gen: in no acute distress HEENT: sclera anicteric, moist mucus membranes Neck: supple Lungs: clear to auscultation bilaterally Heart: regular rate and rhythm, no murmurs Abd: soft, non-tender, non-distended Ext: no edema Skin: warm/well-perfused Neuro: alert and oriented x3, no focal findings Psych: appropriate affect DS: Data Data Completed and Pending Completed studies during hospitalization [Text1]: Laboratory Results WBC 17.1 X10*3/uL (4.8-10.8) H 05/17/21 05:10 RBC 4.45 X10*6/uL (4.60-5.80) L 05/17/21 05:10 Hgb 13.9 g/dl (14.0-18.0) L 05/17/21 05:10 Hct 42.7 % (42-52) 05/17/21 05:10 MCV 96.0 fL (80-98) 05/17/21 05:10 MCH 31.2 pg (27.0-33.0) 05/17/21 05:10 MCHC 32.6 g/dl (31.0-36.0) 05/17/21 05:10 RDW 15.6 % (11.0-16.0) 05/17/21 05:10 Plt Count 270 X10*3/uL (160-400) 05/17/21 05:10 MPV 9.5 fL (9.4-12.4) 05/17/21 05:10 Immature Gran % (Auto) 0.3 % (0.0-0.4) 05/16/21 05:16 Neut % (Auto) 84.4 % (45-73) H 05/16/21 05:16 Lymph % (Auto) 14.5 % (20-40) L 05/16/21 05:16 [place] % (Auto) 0.8 % (2-11) L 05/16/21 05:16 Eos % (Auto) 0.0 % (0-4) 05/16/21 05:16 Baso % (Auto) 0.0 % (0-2) 05/16/21 05:16 Lymph # (Auto) 0.9 X10*3/uL (1.2-4.9) L 05/16/21 05:16 [place] # (Auto) 0.1 X10*3/uL (0.1-1.2) 05/16/21 05:16 Eos # (Auto) 0.0 X10*3/uL (0.0-0.4) 05/16/21 05:16 Baso # (Auto) 0.0 X10*3/uL (0.0-0.2) 05/16/21 05:16 Abs Immat Gran (auto) 0.02 X10*3/uL (0.00-0.03) 05/16/21 05:16 Absolute Neuts (auto) 5.4 X10*3/uL (2.0-8.3) 05/16/21 05:16 Absolute Nucleated RBC 0.000 X10*3/uL (0.0-0.012) 05/17/21 05:10 Nucleated RBC % (auto) 0.0 /100WBC (0.0-0.2) 05/17/21 05:10 Smear Tech's Comments VERIFIED 05/16/21 05:16 PT 14.8 SEC (10.8-13.0) H 05/15/21 17:17 INR 1.2 (0.9-1.1) H 05/15/21 17:17 D-Dimer 838 NG/ML 05/15/21 17:17 VBG pH 7.35 (7.32-7.43) 05/15/21 18:51 VBG pCO2 32 mmHg 05/15/21 18:51 VBG pO2 55 mmHg 05/15/21 18:51 VBG HCO3 18 mmol/L (22-26) L 05/15/21 18:51 VBG O2 Saturation 86.0 % 05/15/21 18:51 VBG Base Excess -5.9 mmol/L 05/15/21 18:51 Sodium 141 mmol/L (135-145) 05/17/21 05:10 Potassium 4.9 mmol/L (3.3-5.1) 05/17/21 05:10 Chloride 109 mmol/L (96-108) H 05/17/21 05:10 Carbon Dioxide 20 mmol/L (22-29) L 05/17/21 05:10 Anion Gap 17 (12-20) 05/17/21 05:10 BUN 37 mg/dL (9-16) H 05/17/21 05:10 Creatinine 1.32 mg/dL (0.5-1.4) 05/17/21 05:10 Estim Creat Clear Calc 56.9 05/17/21 05:10 Estimated GFR 53 05/17/21 05:10 Random Glucose 179 mg/dL (60-115) H 05/17/21 05:10 Lactic Acid 1.3 mmol/L (0.5-2.0) 05/15/21 17:17 Calcium 9.3 mg/dL (8.4-10.2) 05/17/21 05:10 Total Bilirubin 1.2 mg/dL (0.0-1.0) H 05/15/21 17:17 Direct Bilirubin 0.5 mg/dL (0.0-0.5) 05/15/21 17:17 AST 20 U/L (5-37) 05/15/21 17:17 ALT 18 U/L (0-40) 05/15/21 17:17 Alkaline Phosphatase 99 U/L (39-117) 05/15/21 17:17 Troponin I High Sens 7.7 ng/L (<3.5-35.0) 05/15/21 21:03 C-Reactive Protein 0.45 mg/dL (< or = 0.50) 05/16/21 05:16 B-Natriuretic Peptide 114 pg/mL (<100) H 05/15/21 17:17 Total Protein 7.2 g/dL (6.5-8.0) 05/15/21 17:17 Albumin 3.9 g/dL (3.5-5.0) 05/15/21 17:17 Procalcitonin 0.04 ng/mL 05/16/21 05:16 Respiratory Panel Maldonado See Note 05/16/21 11:25 Adenovirus (Rapid PCR) Not Detected (Not Detect.) 05/16/21 11:25 B.pert (TEM-PCR) Not Detected (Not Detect.) 05/16/21 11:25 B.parapertussis DNA PCR Not Detected (Not Detect.) 05/16/21 11:25 C. pneumoniae DNA (PCR) Not Detected (Not Detect.) 05/16/21 11:25 Coronavirus (PCR) NEGATIVE (Negative) 05/15/21 17:16 Coronavirus OC43 (PCR) Not Detected (Not Detect.) 05/16/21 11:25 Coronavirus HKU1 (PCR) Not Detected (Not Detect.) 05/16/21 11:25 Coronavirus 229E (PCR) Not Detected (Not Detect.) 05/16/21 11:25 Coronavirus NL63 (PCR) Not Detected (Not Detect.) 05/16/21 11:25 Human Metapneumovir PCR Not Detected (Not Detect.) 05/16/21 11:25 Influenza A (RT-PCR) Not Detected (Not Detect.) 05/16/21 11:25 Influenza Type A (PCR) NEGATIVE (Negative) 05/15/21 17:16 Influenza B (RT-PCR) Not Detected (Not Detect.) 05/16/21 11:25 Influenza Type B (PCR) NEGATIVE (Negative) 05/15/21 17:16 M. pneumoniae (PCR) Not Detected (Not Detect.) 05/16/21 11:25 Parainfluenza 1 (PCR) Not Detected (Not Detect.) 05/16/21 11:25 Parainfluenza 2 (PCR) Not Detected (Not Detect.) 05/16/21 11:25 Parainfluenza 3 (PCR) Not Detected (Not Detect.) 05/16/21 11:25 Parainfluenza 4 (PCR) Not Detected (Not Detect.) 05/16/21 11:25 RSV (PCR) Not Detected (Not Detect.) 05/16/21 11:25 RSV RNA Qual (PCR) NEGATIVE (Negative) 05/15/21 17:16 Entero/Rhino (PCR) Not Detected (Not Detect.) 05/16/21 11:25 SARS-CoV-2 RNA (RT-PCR) Not Detected (Not Detect.) 05/16/21 11:25 Impressions Chest X-Ray 05/15/21 16:40 IMPRESSION: Marked emphysematous change of lungs. No acute abnormality of the chest. Chest CTA 05/15/21 22:50 IMPRESSION: 1. No evidence of pulmonary embolism. No acute thoracic abnormalities. 2. Severe centrilobular pulmonary edema. 3. Coronary artery calcifications. VTE: negative Discharge Plan Discharge Patient Disposition: Home, Self-Care Discharge Diagnosis: COPD exacerbation Referrals: Leeroy Zendejas MD [Primary Care Provider] - 1 Week Discharge Medications: New prednisone 20 mg tablet 40 mg PO DAILY Qty: 6 RF: 0 tiotropium bromide 18 mcg capsule, w/inhalation device 1 cap inhalation DAILY Qty: 30 RF: 0 Continued atorvastatin 10 mg tablet 1 tab PO DAILY@1800 RF: 0 alprazolam 0.25 mg tablet 1 tab PO DAILY PRN (Reason: anxiety) RF: 0 sertraline 50 mg tablet 1 tab PO DAILY@1800 RF: 0 Belbuca 300 mcg film 1 strip PO BID RF: 0 albuterol sulfate 90 mcg/actuation HFA aerosol inhaler 2 inh inhalation Q4H PRN (Reason: copd) RF: 0 hydrocodone-acetaminophen 10-325 mg tablet 1 tab PO 8XD PRN (Reason: Pain) RF: 0 aspirin 81 mg tablet,delayed release (DR/EC) 81 mg PO DAILY@1800 RF: 0 lisinopril 5 mg tablet 5 mg PO DAILY@1800 RF: 0 Discharge Orders: Discharge Order (Routine); Ordered 05/17/21 Ordered By: Emanuel Baptiste Diet: advance to usual diet and low salt diet Activity on Discharge: home O2 Stand Alone Forms: Patient Portal Discharge page Care Plan Goals: improvement in breathing Health Concerns: COPD exacerbation Plan of Treatment: take prednisone 40 mg [two 20 mg tabs] once daily for 3 days albuterol inhalation as needed for shortness of breath or wheezing start preventive/controller medication Spiriva [tiotropium 18 mcg] 1 inhalation daily continue home oxygen see your primary care doctor in 1 week Assessment: as above
--- NOTE | 2021-05-17 11:28 | MHC.CM.PN ---
Male 76 DX COPD Is discharged today to home no services. Transportation provided by Family.
== END 2021-05-17 12:56 | disposition home or self-care (01) | DRG 190 ==
LOC: HO.ED 19:14 → HO.IMC 19:31
PROVIDERS: Admitting Provider Hospitalist; Emergency Provider Emergency Medicine; PCP Family Medicine; Visit Provider Family Medicine
DX: J44.1 Chronic obstructive pulmonary disease with (acute) exacerbation (principal); J96.21 Acute and chronic respiratory failure with hypoxia; F39 Unspecified mood [affective] disorder; G89.29 Other chronic pain; Z99.81 Dependence on supplemental oxygen; Z20.822 Contact with and (suspected) exposure to COVID-19; Z87.891 Personal history of nicotine dependence; Z79.82 Long term (current) use of aspirin; Z79.899 Other long term (current) drug therapy
CPT/HCPCS: 0241U; 36415; 71045; 71275; 80048; 80076; 83605; 83880; 84145; 84484; 85025; 85027; 85379; 85610; 86140; 87040; 87633; 93005; 94640; 99285; J1650; J1956; J2920; J2930; Q9967

== ENCOUNTER → 2021-05-30 13:20 | Outpatient (BNVA) | payer MEDICARE, SELFPAY | PROVIDERS: PCP Family Medicine; Visit Provider Internal Medicine Pulmonary Disease | DX: J44.9 Chronic obstructive pulmonary disease, unspecified (principal); R91.8 Other nonspecific abnormal finding of lung field; Z99.81 Dependence on supplemental oxygen | CPT/HCPCS: 99212 ==

== ENCOUNTER 2021-06-23 14:54 | Outpatient (REF) | payer MEDICARE, SELFPAY ==
--- NOTE | ~2021-06-23 | CT_ITS ---
EXAMINATION: CT CHEST WITHOUT CONTRAST CLINICAL INFORMATION: Follow-up pulmonary nodules COMPARISON: Previous chest CT scans most recent chest CTA April 2021 TECHNIQUE: Multidetector volumetric CT imaging of the chest was done. Axial MIP volume rendering provided. Sagittal and coronal reformatted images were obtained. This CT examination was performed using dose optimization techniques as appropriate, variously including the following: *Automated exposure control *Adjustment of mA and/or kV according to patient size (this includes techniques or standardized protocols for targeted exams where dose is matched to indication/reason for exam; i.e. extremities or head) *Use of iterative reconstruction technique DLP: 225 mGy-cm FINDINGS: LUNGS: There is evidence of evidence of emphysema. There is increased peripheral attenuation at the lung bases questionable for dependent atelectasis versus mild interstitial disease. There are multiple bilateral peripheral or subpleural pulmonary nodules adjacent to the fissure is probably representing subpleural lymph nodes that are stable. The largest measures 6 mm adjacent to the minor fissure axial image 41 series 4. There is a 7 mm right lower lobe cavitary nodule axial image 44 series 4 that is stable. There is question of several new cavitary nodules probably representing focal bronchiectasis and bronchial wall thickening, for example coronal reconstructed image 70 and sagittal reconstructed image 107. Largest measures 5 mm. MEDIASTINUM: There are small mediastinal lymph nodes that are stable. The heart does not appear enlarged. There is mild coronary artery and aortic valve calcification. There is no pericardial effusion. PLEURA: There is no pleural effusion. No pleural mass or thickening. AXILLA: No lymphadenopathy. UPPER ABDOMEN: There is mild diverticulosis of the colon. OSSEOUS STRUCTURES: There are degenerative changes of the spine. There is a left shoulder replacement. CT/CT chest wo con IMPRESSION: Emphysema. Stable solid pulmonary nodules probably representing peripheral or subpleural lymph nodes and 6 mm cavitary nodule in the right lower lobe. New small adjacent cavitary lesions in the right lower lobe probably representing focal bronchiolectasis and bronchial wall thickening, largest measuring 5 mm.
== END 2021-06-23 14:55 | disposition home or self-care (01) ==
LOC: HO.CT 14:54
PROVIDERS: PCP Family Medicine; Visit Provider Internal Medicine Pulmonary Disease
DX: R91.8 Other nonspecific abnormal finding of lung field (principal)
CPT/HCPCS: 71250

== ENCOUNTER → 2021-10-25 13:41 | Outpatient (BNVA) | payer MEDICARE, SELFPAY | PROVIDERS: PCP Family Medicine; Visit Provider Internal Medicine Pulmonary Disease | DX: Z13.89 Encounter for screening for other disorder (principal) | CPT/HCPCS: Q3014 ==

== ENCOUNTER → 2021-11-27 15:38 | Outpatient (REF) | payer MEDICARE, SELFPAY ==
--- NOTE | 2021-11-27 14:45 | CA_ITS ---
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 Normal LV systolic function 2. Severely dilated RV with borderline systolic function 3. Normal cardiac valvular Dopplers 4. Severely elevated RVSP 5. No gross pericardial effusion Findings Left Ventricle Normal left ventricular size, thickness, and systolic function. The visually estimated ejection fraction is between 55-60%. There is a flattened septum in systole consistent with right ventricular pressure overload. Diastolic function is indeterminate on the basis of available data. Right Ventricle Severely increased right ventricular cavity size. There is low normal right ventricular systolic function. Atria The left atrium is likely dilated. There is no evidence of interatrial shunt. The right atrium is mildly dilated. Aortic Valve There is mild calcification of the aortic valve. There is mild thickening of the aortic valve. There is no aortic valve stenosis. There is mild aortic valve regurgitation. Mitral Valve There is mild anterior and posterior mitral leaflet thickening. There is mild mitral annular calcification. There is trace mitral valve regurgitation. There is no mitral valve stenosis. Pulmonic Valve The pulmonic valve was not well visualized. Tricuspid Valve Likely normal tricuspid valve structure and function. There is mild tricuspid valve regurgitation. Mildly elevated right atrial pressure. Moderate to severe pulmonary hypertension is present. Great Vessels All visible segments of the aorta are normal in size. The pulmonary artery was not well visualized. Venous The inferior vena cava is mildly dilated and collapses greater than 50% with inspiration. Pericardium/Pleural There is no evidence of pericardial effusion. Prior Study Comparison Significant changes compared to prior study dated: 10/17/2019. RVSP is significantly increased with RV noted to be severely enlarged Measurements 2D Linear Measurements IVSd: 1.03 0.6-0.9/0.6-1.0 cm LVIDd: 4.28 3.9-5.3/4.2-5.9 cm LVIDd Index: 2.05 2.4-3.2/2.2-3.1 cm/m2 LVIDs: 3.05 2.0-3.6 cm LVPWd: 1.08 0.7-1.1 cm Ao Root: 3.60 2.1-3.5 cm LA Diam: 3.20 2.7-3.8/3.0-4.0 cm LAIDs Index: 1.53 1.5-2.3 cm/m2 LV Mass: 189.81 67-162/88-224 g LV Mass Index: 90.82 43-95/49-115 g/m2 LVOT Diam: 2.20 3.0+(-)1.3 cm 2D Systolic Function EF 4C: 57.00 >55% EF 2C: 61.30 >55% EF BiP: 57.70 >55% Aortic Valve AoV Pk Juanjose: 1.45 AoV Mn Juanjose: 0.98 AoV VTI: 0.28 AoV Pk Grad: 8.00 Aov Mn Grad: 4.00 CLIFFORD Cont.VTI: 2.08 LVOT LVOT Pk Juanjose: 0.89 LVOT Mn Juanjose: 0.61 LVOT VTI: 0.15 LVOT Pk Grad: 3.00 LVOT Mn Grad: 2.00 LVOT Diam: 2.20 LVOT Area: 3.80 Right Ventricle TAPSE (mm): 22.40 TVS' Juanjose: 12.50 Tricuspid Valve TR Pk Juanjose: 3.88 TR Pk Grad: 60.00 RA Press: 8.00 RVSP: 68.00 Great Vessels Aorta Ao Root-2D: 3.60 2.0-3.7 cm Ao Asc: 3.70 2.1-3.4 cm Updated in Other Vendor System with Status of Final Loenidas Hannon MD electronically signed on 11/27/2021 6:33:14 PM with status of Final
== END ==
LOC: HO.CARD 15:38
PROVIDERS: PCP Family Medicine; Visit Provider Internal Medicine
DX: I25.10 Atherosclerotic heart disease of native coronary artery without angina pectoris (principal)
CPT/HCPCS: 93306

== ENCOUNTER → 2021-11-28 13:34 | Outpatient (BNVA) | payer MEDICARE, SELFPAY | PROVIDERS: PCP Family Medicine; Visit Provider Internal Medicine Pulmonary Disease | DX: J44.9 Chronic obstructive pulmonary disease, unspecified (principal); R91.8 Other nonspecific abnormal finding of lung field; R60.0 Localized edema; Z99.81 Dependence on supplemental oxygen | CPT/HCPCS: 99212 ==

== ENCOUNTER → 2021-11-30 10:10 | Outpatient (BNVA) | payer MEDICARE, SELFPAY | PROVIDERS: PCP Family Medicine; Visit Provider Internal Medicine | DX: I25.10 Atherosclerotic heart disease of native coronary artery without angina pectoris (principal); I11.0 Hypertensive heart disease with heart failure; I50.812 Chronic right heart failure; J44.9 Chronic obstructive pulmonary disease, unspecified; E78.5 Hyperlipidemia, unspecified; Z99.81 Dependence on supplemental oxygen | CPT/HCPCS: Q3014 ==

== ENCOUNTER → 2021-12-19 15:46 | Outpatient (BNVA) | payer MEDICARE, SELFPAY | PROVIDERS: PCP Family Medicine; Visit Provider Internal Medicine Pulmonary Disease | DX: J44.9 Chronic obstructive pulmonary disease, unspecified (principal); R60.0 Localized edema; Z99.81 Dependence on supplemental oxygen | CPT/HCPCS: 99212 ==

== ENCOUNTER 2022-01-17 14:56 | Inpatient (IN) | payer MEDICARE, SELFPAY ==
--- NOTE | ~2022-01-17 | XR_ITS ---
EXAMINATION: XR CHEST CLINICAL INFORMATION: SOB COMPARISON: None TECHNIQUE: Frontal view of the chest was obtained. FINDINGS: No significant abnormality is noted involving the heart, lungs, mediastinum, bony thorax or soft tissues. XR/XR chest 1V IMPRESSION: Unremarkable chest examination.
--- NOTE | ~2022-01-17 | US_ITS ---
EXAMINATION: US VENOUS ULTRASOUND WITH DOPPLER LOWER EXTREMITY, RIGHT CLINICAL INFORMATION: Right leg swelling COMPARISON: None TECHNIQUE: Ultrasound of the deep veins is performed from the hip to the calf with compression sonography and color and pulse Doppler assessment. Spectral analysis with color-flow imaging is performed. FINDINGS: There is normal venous compression and respiratory variation and augmented flow. The visualized common femoral vein, superficial femoral vein, profunda femoral vein, popliteal vein, and the trifurcation region shows no evidence of deep venous thrombosis. There is no significant popliteal fossa cyst. If the patient's symptoms persist, followup ultrasound in 5 days 7 days might be of value to exclude proximal propagation from a non-visualized calf vein. US/US venous duplex LE RT IMPRESSION: No DVT demonstrated in the right lower extremity.
[2022-01-17 15:42] VITALS: BP 117/72; PULSE 78; RESP 20; TEMP 36.9; O2SAT 94; BMI 30.2
[2022-01-17 17:28] LABS: MANUAL DIFF FLAG NO
[2022-01-17 17:29] LABS: Basophils Percent Auto 0.3 % (0-2); Eosinophils Percent Auto 0.3 % (0-4); Hematocrit 47.3 % (42.0-52.0); Hemoglobin 15.4 g/dl (14.0-18.0); Imm Gran Abs Auto 0.03 X10*3/uL (0.00-0.03); Imm Gran Pct Auto 0.3 % (0.0-0.4); Lymphocytes Percent Auto 19.7 % (20-40); Mean Corpuscular HGB Conc 32.6 g/dl (31.0-36.0); Mean Corpuscular Hemoglobin 33.5 pg (27.0-33.0); Mean Corpuscular Volume 102.8 fL (80.0-98.0); Mean Platelet Volume 9.3 fL (9.4-12.4); Monocytes Absolute Auto 0.8 X10*3/uL (0.1-1.2); Monocytes Percent Auto 8.3 % (2-11); Neutrophils Percent Auto 71.1 % (45-73); Platelet Count 298 X10*3/uL (160-400); Red Cell Distribution Width 14.9 % (11.0-16.0); White Blood Count 9.9 X10*3/uL (4.8-10.8)
[2022-01-17 17:43] LABS: Anion Gap 13 (12-20); Blood Urea Nitrogen 33 mg/dL (9-16); Calcium 9.4 mg/dL (8.4-10.2); Carbon Dioxide 26 mmol/L (22-29); Chloride 106 mmol/L (96-108); Creatinine Clr Calc Pharmacy 53.6; Estimated Glomerular Filt Rate 52; Glucose Random 99 mg/dL (60-115); Potassium 4.9 mmol/L (3.3-5.1); Sodium 140 mmol/L (135-145)
[2022-01-17 17:48] LABS: B Type Natriuretic Peptide 1021 pg/mL (<100)
[2022-01-17 18:15] VITALS: BP 153/88; PULSE 85; RESP 16; TEMP 36.3; O2SAT 96
--- NOTE | 2022-01-17 18:23 | ED.SOB ---
HPI - SOB/Dyspnea General Chief Complaint: Dyspnea Stated Complaint: pcp referral cellulitis Time Seen by Provider: 01/17/22 18:05 Source: patient and family Mode of arrival: ambulatory Limitations: no limitations History of Present Illness HPI Narrative: PATIENT WITH PAST MEDICAL HISTORY OF HYPERTENSION, COPD, DIASTOLIC HEART FAILURE, CHRONIC RESPIRATORY FAILURE ON 2-3 L OF OXYGEN, CHRONIC LEG EDEMA COMES HERE FOR INCREASED RIGHT LEG SWELLING FOR LAST FEW DAYS PATIENT USED TO TAKE LASIX 40 MG DAILY .STOPPED FOR 2 WEEKS FOR ELEVATED CREATININE AND THEN CHANGE TO ALTERNATE DAYS ON 12/20. ALSO PATIENT NOTICED PAIN ON THE DORSUM OF THE RIGHT FOOT WITH HISTORY OF PSEUDOGOUT IN THE PAST HAD TEMPERATURE OF 104 DEGREES LAST NIGHT. PATIENT WAS SEEN BY PCP TODAY WHO ADVISED TO GO TO THE HOSPITAL FOR FURTHER MANAGEMENT ALSO PATIENT IS ON 2 L OF OXYGEN AND SUPPOSED TO INCREASE TO 4 L ON AMBULATION FEELS SLIGHTLY MORE SHORT WINDED LATELY. DENIES ANY CHEST PAIN Related Data Home Medications Medication Instructions Recorded Confirmed aspirin 81 mg tablet,delayed 81 mg PO DAILY@1800 10/11/20 11/30/21 release lisinopril 5 mg tablet 5 mg PO DAILY@1800 10/11/20 11/30/21 albuterol sulfate 90 mcg/actuation 2 inh INHALATION Q4H PRN 05/15/21 11/30/21 aerosol inhaler alprazolam 0.25 mg tablet 1 tab PO DAILY PRN 05/15/21 11/30/21 atorvastatin 10 mg tablet 1 tab PO DAILY@1800 05/15/21 11/30/21 buprenorphine HCl 300 mcg buccal 1 strip PO BID 05/15/21 11/30/21 film (Belbuca) hydrocodone 10 mg-acetaminophen 1 tab PO 8XD PRN 05/15/21 11/30/21 325 mg tablet sertraline 50 mg tablet 1 tab PO DAILY@1800 05/15/21 11/30/21 Previous Rx's Medication Instructions Recorded fluticasone fur. 200 mcg-umeclid 1 inh INHALATION DAILY 30 Days #1 08/07/21 62.5 mcg-vilant 25 mcg ea inhalat.powder (Trelegy Ellipta) ipratropium 0.5 mg-albuterol 3 mg 3 ml INHALATION Q4-6H PRN 30 Days 10/17/21 (2.5 mg base)/3 mL nebulization #270 ml soln furosemide 40 mg tablet (Lasix) 40 mg PO DAILY 30 Days #30 tab 11/28/21 Allergies Allergy/AdvReac Type Severity Reaction Status Date / Time No Known Allergies Allergy Verified 01/17/22 15:42 [No Known Allergies*] Review of Systems Review of Systems: Yes all other systems are reviewed and are negative [facility] Past Medical History Medical History Acute on chronic respiratory failure with hypoxemia Atherosclerotic cardiovascular disease COPD with exacerbation Essential hypertension Other and unspecified hyperlipidemia Pulmonary nodule seen on imaging study Surgical History History of cardiac catheterization (~12/09/19) Family History Family History Father No problems noted. Mother No problems noted. Social History Social History Household Members: Spouse Housing: House Do you presently have visiting nurse or other home services: No Alcohol intake: never Patient Tobacco Use Status: Former Tobacco user Second Hand Smoke Exposure: No Advance Directives: No Advance Directives Information Provided: No service: Yes Current occupational status: retired Physical Exam Vital Signs: Vital Signs: Last Vital Signs Temp 98.4 F 01/17/22 18:25 Pulse 92 01/17/22 18:25 Resp 16 01/17/22 18:25 BP 126/71 01/17/22 18:25 Pulse Ox 95 01/17/22 18:25 Oxygen Flow Rate 4 01/17/22 15:42 BMI result Body Mass Index 30.2 Appearance: Alert. Oriented X3. No acute distress. Eyes: No pallor/ icterus ENT: Pharynx normal. Oral Mucosa moist Neck: Normal inspection. Neck supple. CVS: Normal heart rate and rhythm. Pulses normal. No murmur/rub or gallop Respiratory: No respiratory distress. Equal air entry bilateral, prolonged expiration with few basal rales Abdomen: Soft and nontender. Bowel sounds are present, no mass palpable, no CVA tenderness Skin: Skin warm and dry. Normal skin color. Normal skin turgor. Extremities: 3+ right lower extremity edema with slight erythema and tenderness on dorsum of the foot, left lower extremity 2+ leg edema no skin changes, no calf tenderness Neuro: Oriented X 3. No motor deficit. No sensory deficit.No cerebellar signs , cranial nerves II-XII intact MDM - SOB/Dyspnea MDM Narrative Medical decision making narrative: Patient with increased leg edema will get Doppler dressed to rule out DVT EKG with chronic ischemic changes with troponin of 19.2 will repeat the troponin patient denies any chest pain , venous Doppler negative for DVT will admit patient for exacerbation of CHF cellulitis of the right leg Lab Data Attestation: I reviewed the patient's lab results. Result diagrams: 01/17/22 17:13 01/17/22 17:13 Labs: Lab Results 01/17/22 01/17/22 01/17/22 Range/Units 17:13 17:13 17:13 WBC 9.9 (4.8-10.8) X10*3/uL RBC 4.60 (4.60-5.80) X10*6/uL Hgb 15.4 (14.0-18.0) g/dl Hct 47.3 (42.0-52.0) % MCV 102.8 H (80.0-98.0) fL MCH 33.5 H (27.0-33.0) pg MCHC 32.6 (31.0-36.0) g/dl RDW 14.9 (11.0-16.0) % Plt Count 298 (160-400) X10*3/uL MPV 9.3 L (9.4-12.4) fL Immature Gran % (Auto) 0.3 (0.0-0.4) % Neut % (Auto) 71.1 (45-73) % Lymph % (Auto) 19.7 L (20-40) % [place] % (Auto) 8.3 (2-11) % Eos % (Auto) 0.3 (0-4) % Baso % (Auto) 0.3 (0-2) % Lymph # (Auto) 2.0 (1.2-4.9) X10*3/uL [place] # (Auto) 0.8 (0.1-1.2) X10*3/uL Eos # (Auto) 0.0 (0.0-0.4) X10*3/uL Baso # (Auto) 0.0 (0.0-0.2) X10*3/uL Abs Immat Gran (auto) 0.03 (0.00-0.03) X10*3/uL Absolute Neuts (auto) 7.0 (2.0-8.3) x10*3/uL Absolute Nucleated RBC 0.000 (0.0-0.012) X10*3/uL Nucleated RBC % (auto) 0.0 (0.0-0.2) /100WBC PT (9.9-13.0) SEC INR (0.9-1.1) APTT (24.1-38.0) SEC D-Dimer High Sensitivty NG/ML Sodium 140 (135-145) mmol/L Potassium 4.9 (3.3-5.1) mmol/L Chloride 106 (96-108) mmol/L Carbon Dioxide 26 (22-29) mmol/L Anion Gap 13 (12-20) BUN 33 H (9-16) mg/dL Creatinine 1.34 (0.5-1.4) mg/dL Estim Creat Clear Calc 53.6 Estimated GFR 52 Random Glucose 99 D (60-115) mg/dL Lactic Acid (0.5-2.0) mmol/L Uric Acid 6.4 (3.4-7.0) mg/dL Calcium 9.4 (8.4-10.2) mg/dL Troponin I High Sens (<3.5-35.0) ng/L B-Natriuretic Peptide 1021 H (<100) pg/mL COVID-19 (RANDA) (Negative) COVID-19 Clin Com 01/17/22 01/17/22 01/17/22 Range/Units 18:40 18:40 19:00 WBC (4.8-10.8) X10*3/uL RBC (4.60-5.80) X10*6/uL Hgb (14.0-18.0) g/dl Hct (42.0-52.0) % MCV (80.0-98.0) fL MCH (27.0-33.0) pg MCHC (31.0-36.0) g/dl RDW (11.0-16.0) % Plt Count (160-400) X10*3/uL MPV (9.4-12.4) fL Immature Gran % (Auto) (0.0-0.4) % Neut % (Auto) (45-73) % Lymph % (Auto) (20-40) % [place] % (Auto) (2-11) % Eos % (Auto) (0-4) % Baso % (Auto) (0-2) % Lymph # (Auto) (1.2-4.9) X10*3/uL [place] # (Auto) (0.1-1.2) X10*3/uL Eos # (Auto) (0.0-0.4) X10*3/uL Baso # (Auto) (0.0-0.2) X10*3/uL Abs Immat Gran (auto) (0.00-0.03) X10*3/uL Absolute Neuts (auto) (2.0-8.3) x10*3/uL Absolute Nucleated RBC (0.0-0.012) X10*3/uL Nucleated RBC % (auto) (0.0-0.2) /100WBC PT 15.5 H (9.9-13.0) SEC INR 1.4 H (0.9-1.1) APTT 37.4 (24.1-38.0) SEC D-Dimer High Sensitivty 266 NG/ML Sodium (135-145) mmol/L Potassium (3.3-5.1) mmol/L Chloride (96-108) mmol/L Carbon Dioxide (22-29) mmol/L Anion Gap (12-20) BUN (9-16) mg/dL Creatinine (0.5-1.4) mg/dL Estim Creat Clear Calc Estimated GFR Random Glucose (60-115) mg/dL Lactic Acid (0.5-2.0) mmol/L Uric Acid (3.4-7.0) mg/dL Calcium (8.4-10.2) mg/dL Troponin I High Sens 19.2 (<3.5-35.0) ng/L B-Natriuretic Peptide (<100) pg/mL COVID-19 (RANDA) Negative (Negative) COVID-19 Clin Com See Note 01/17/22 Range/Units 19:00 WBC (4.8-10.8) X10*3/uL RBC (4.60-5.80) X10*6/uL Hgb (14.0-18.0) g/dl Hct (42.0-52.0) % MCV (80.0-98.0) fL MCH (27.0-33.0) pg MCHC (31.0-36.0) g/dl RDW (11.0-16.0) % Plt Count (160-400) X10*3/uL MPV (9.4-12.4) fL Immature Gran % (Auto) (0.0-0.4) % Neut % (Auto) (45-73) % Lymph % (Auto) (20-40) % [place] % (Auto) (2-11) % Eos % (Auto) (0-4) % Baso % (Auto) (0-2) % Lymph # (Auto) (1.2-4.9) X10*3/uL [place] # (Auto) (0.1-1.2) X10*3/uL Eos # (Auto) (0.0-0.4) X10*3/uL Baso # (Auto) (0.0-0.2) X10*3/uL Abs Immat Gran (auto) (0.00-0.03) X10*3/uL Absolute Neuts (auto) (2.0-8.3) x10*3/uL Absolute Nucleated RBC (0.0-0.012) X10*3/uL Nucleated RBC % (auto) (0.0-0.2) /100WBC PT (9.9-13.0) SEC INR (0.9-1.1) APTT (24.1-38.0) SEC D-Dimer High Sensitivty NG/ML Sodium (135-145) mmol/L Potassium (3.3-5.1) mmol/L Chloride (96-108) mmol/L Carbon Dioxide (22-29) mmol/L Anion Gap (12-20) BUN (9-16) mg/dL Creatinine (0.5-1.4) mg/dL Estim Creat Clear Calc Estimated GFR Random Glucose (60-115) mg/dL Lactic Acid 1.9 (0.5-2.0) mmol/L Uric Acid (3.4-7.0) mg/dL Calcium (8.4-10.2) mg/dL Troponin I High Sens (<3.5-35.0) ng/L B-Natriuretic Peptide (<100) pg/mL COVID-19 (RANDA) (Negative) COVID-19 Clin Com ECG Data Attestation: I personally reviewed and interpreted this ECG as follows: Interpretation: Normal sinus rhythm with PACs heart rate 100 beats per minute STT wave changes specially in the anterior leads with T inversion in V1 V2 V3 which is old and new T inversion in V4 2 , 3 and AVF impression anterolateral ischemia Discharge Plan Discharge Clinical Impression: Congestive heart failure, Cellulitis of leg, right Patient Disposition: Admitted As Inpatient
[2022-01-17 18:25] VITALS: BP 126/71; PULSE 92; RESP 16; TEMP 36.9; O2SAT 95
--- NOTE | 2022-01-17 18:27 | ECG_ITS ---
Test Reason : SOB Blood Pressure : / mmHG Vent. Rate : 100 BPM Atrial Rate : 100 BPM P-R Int : 206 ms QRS Dur : 100 ms QT Int : 374 ms P-R-T Axes : 018 108 -50 degrees QTc Int : 482 ms Sinus rhythm with Premature atrial complexes Rightward axis Incomplete right bundle branch block ST & T wave abnormality, consider inferior ischemia ST & T wave abnormality, consider anterolateral ischemia Prolonged QT Abnormal ECG When compared with ECG of 15-MAY-2021 16:59, Vent. rate has increased BY 35 BPM Incomplete right bundle branch block is now Present Referred By: Pepito Anthony Electronically Signed By:ERASMO VILLARREAL
[2022-01-17 18:58] LABS: INTERNATIONAL NORM RATIO 1.4 (0.9-1.1); Prothrombin Time 15.5 SEC (9.9-13.0)
[2022-01-17 19:00] LABS: D Dimer High Sensitivity 266 NG/ML; Partial Thromboplastin Time 37.4 SEC (24.1-38.0)
[2022-01-17 19:01] LABS: COVID-19 Test Negative (Negative)
[2022-01-17 19:06] LABS: Uric Acid 6.4 mg/dL (3.4-7.0)
[2022-01-17] MEDS: Furosemide 40 MG/4 ML VIAL IVPUSH (19:35)
[2022-01-17 19:38] LABS: Lactic Acid 1.9 mmol/L (0.5-2.0)
[2022-01-17 19:47] LABS: Troponin-I High Sensitivity 19.2 ng/L (<3.5-35.0)
--- NOTE | 2022-01-17 20:33 | PHA.MEDREC ---
Pharmacy Consult ? Medication Reconciliation Pharmacy has completed the medication reconciliation.
--- NOTE | 2022-01-17 21:53 | P.HPHOSP_ITS ---
History of Present Illness Date of Service: 01/17/22 Chief Complaint: leg swelling This 77-year-old male with past medical history of COPD on 3-4 L of oxygen at baseline, right-sided heart failure, hypertension, and depression who presents to the hospital with complaints of right leg swelling. Patient reports that his legs are swelling about a week ago, associated with mild redness on the dorsum of his right foot. Patient reports that his PCP took him off his Lasix for a couple of weeks due to worsening kidney function, but he was taking it again every other day for the past One week. he has minimal cough, some sputum production, He reports dyspnea on exertion, orthopnea, PND, he denies any chest pain, no palpitations, no abdominal pain nausea or vomiting, no diarrhea constipation, and no urinary symptoms. pt had erythema on the dorsum of the right foot, ED physician felt to be cellulitis, patient was given 1 dose of IV antibiotics. On my review of patient his reports that has significantly improved. On arrival to the ED patient hemodynamically stable satting 90% on 3 L of oxygen Labs reviewed are unremarkable, venous duplex is negative for DVT in the right lower extremity and chest x-ray shows unremarkable exam patient given IV antibiotics as well as IV Lasix and will be admitted for further management Review of Systems Review of Systems: Yes all other systems are reviewed and are negative [facility] Medical History (Updated 01/18/22 @ 06:06 by Mateus Suazo MD) Acute on chronic respiratory failure with hypoxemia Atherosclerotic cardiovascular disease COPD with exacerbation Essential hypertension Other and unspecified hyperlipidemia Pulmonary nodule seen on imaging study Family History Father No problems noted. Mother No problems noted. Surgical History History of cardiac catheterization (~12/09/19) Social History Household Members: Spouse Housing: House Are you a primary child caregiver private home to a significant other at home: No Do you presently have visiting nurse or other home services: No Alcohol intake: never Patient Tobacco Use Status: Former Tobacco user Second Hand Smoke Exposure: No Use of substances other than those prescribed or required for medical reasons: No Currently Displaying Signs/Symptoms of Drug Intoxication Withdrawal: No Any prior treatment program specific to substance use: No Have you been hit, kicked, punched, or otherwise hurt by someone within the past year? If so, by whom?: No Do you feel safe in your current relationship?: Yes Is there a partner from a previous relationship who is making you feel unsafe now?: No Are you made to feel afraid or neglected: No Advance Directives: No Advance Directives Information Provided: No Do you have thoughts of harming others: None Recently lost weight without trying: No Nutrition Risks: No Nutritional Risk Poor oral hygiene: No service: Yes Current occupational status: [employer] Allergies Allergy/AdvReac Type Severity Reaction Status Date / Time No Known Allergies Allergy Verified 01/17/22 15:42 [No Known Allergies*] Active Medications: Current Medications Acetaminophen (Acetaminophen 325 Mg Tablet) 650 mg PO Q6H PRN PRN Reason: Pain, Mild (Pain Scale 1-3) Docusate Sodium (Docusate Sodium 100 Mg Capsule) 100 mg PO DAILY PRN PRN Reason: Constipation Enoxaparin Sodium (Enoxaparin Sodium 40 Mg/0.4 Ml Syringe) 40 mg SUBCUT Q24H BINDU Furosemide (Furosemide 40 Mg/4 Ml Vial) 40 mg IVPUSH Q12H BINDU; Protocol Ondansetron HCl (Ondansetron Hcl 4 Mg/2 Ml Vial) 4 mg IVPUSH Q8H PRN PRN Reason: Nausea and Vomiting Sodium Chloride (0.9 % Sodium Chloride Flush 3 Ml Syringe) 3 ml IVFLUSH QSHIFT BINDU Home Medications Medication Instructions Recorded Confirmed Last Taken Type aspirin 81 mg tablet,delayed 81 mg PO DAILY@1800 10/11/20 01/17/22 05/14/21 History release lisinopril 5 mg tablet 5 mg PO DAILY@1800 10/11/20 01/17/22 05/14/21 History albuterol sulfate 90 mcg/actuation 2 inh INHALATION Q4H PRN 05/15/21 01/17/22 Unknown History aerosol inhaler alprazolam 0.25 mg tablet 1 tab PO DAILY PRN 05/15/21 01/17/22 05/15/21 History atorvastatin 10 mg tablet 1 tab PO DAILY@1800 05/15/21 01/17/22 05/14/21 History buprenorphine HCl 300 mcg buccal 1 strip PO BID 05/15/21 01/17/22 05/15/21 12:00 History film (Belbuca) hydrocodone 10 mg-acetaminophen 1 tab PO 8XD PRN 05/15/21 01/17/22 05/15/21 History 325 mg tablet sertraline 50 mg tablet 1 tab PO DAILY@1800 05/15/21 01/17/22 05/14/21 History sertraline 25 mg tablet 1 tab PO DAILY 01/17/22 01/17/22 Unknown History Physical Exam Vital Signs and Narrative: Vital Signs: Last Vital Signs Temp 98.4 F 01/17/22 18:25 Pulse 92 01/17/22 18:25 Resp 16 01/17/22 18:25 BP 126/71 01/17/22 18:25 Pulse Ox 95 01/17/22 18:25 Oxygen Flow Rate 4 01/17/22 15:42 BMI result Body Mass Index 30.2 Const: General: cooperative and no acute distress Orie ntation/consciousness: patient oriented x3 Eyes: General: appearance normal, both eyes and all related structures Resp: Effort & Inspection: normal respiratory effort Auscultation: clear to auscultation bilaterally Cardio: Rate: regular rate Rhythm: regular rhythm GI: Palpation (GI): Soft to palpation Auscultation: normal bowel sounds Skin: Other: I did not appreciate any erythema, there is edema that is likely associated with heart failure, no tenderness General skin exam: no rashes or lesions noted Neuro: General: patient oriented x3 Cognition (Neuro): normal cognition Extrem: Other: 3+ pitting edema on the right, trace on the left Results Labs CBC and Chem 7: 01/17/22 17:13 01/17/22 17:13 Labs: Laboratory Results - last 24 hr 01/17/22 01/17/22 01/17/22 17:13 17:13 17:13 MCV 102.8 H MCH 33.5 H MCHC 32.6 RDW 14.9 Plt Count 298 MPV 9.3 L Immature Gran % (Auto) 0.3 Neut % (Auto) 71.1 Lymph % (Auto) 19.7 L [place] % (Auto) 8.3 Eos % (Auto) 0.3 Baso % (Auto) 0.3 Lymph # (Auto) 2.0 [place] # (Auto) 0.8 Eos # (Auto) 0.0 Baso # (Auto) 0.0 Abs Immat Gran (auto) 0.03 Absolute Neuts (auto) 7.0 Absolute Nucleated RBC 0.000 Nucleated RBC % (auto) 0.0 PT INR APTT D-Dimer High Sensitivty Anion Gap 13 Creatinine 1.34 Estim Creat Clear Calc 53.6 Estimated GFR 52 Random Glucose 99 D Lactic Acid Uric Acid 6.4 Calcium 9.4 B-Natriuretic Peptide 1021 H COVID-19 (RANDA) COVID-19 Clin Com 01/17/22 01/17/22 01/17/22 18:40 18:40 19:00 MCV MCH MCHC RDW Plt Count MPV Immature Gran % (Auto) Neut % (Auto) Lymph % (Auto) [place] % (Auto) Eos % (Auto) Baso % (Auto) Lymph # (Auto) [place] # (Auto) Eos # (Auto) Baso # (Auto) Abs Immat Gran (auto) Absolute Neuts (auto) Absolute Nucleated RBC Nucleated RBC % (auto) PT 15.5 H INR 1.4 H APTT 37.4 D-Dimer High Sensitivty 266 Anion Gap Creatinine Estim Creat Clear Calc Estimated GFR Random Glucose Lactic Acid 1.9 Uric Acid Calcium B-Natriuretic Peptide COVID-19 (RANDA) Negative COVID-19 Clin Com See Note Imaging Radiologist's Impressions: Impressions Chest X-Ray 01/17/22 16:02 IMPRESSION: Unremarkable chest examination. Venous Duplex 01/17/22 19:10 IMPRESSION: No DVT demonstrated in the right lower extremity. Assessment and Plan (1) CHF exacerbation: Status: Acute (2) Right-sided heart failure: Status: Acute Plan 77-year-old male with past medical history of COPD, CHF who presents to the hospital with CHF exacerbation # acute CHF exacerbation - patient was off his Lasix for a couple of weeks due to ALFONSO - will resume IV Lasix - low-sodium diet, daily weight, strict I&O - will obtain echocardiogram - troponin unremarkable - consult cardiology # cellulitis over right foot - significantly improved after 1 dose of IV antibiotic - will place patient on p.o. antibiotic - no evidence of systemic effect # hyperlipidemia - continue statin # COPD - not in exacerbation - continue home inhaler - continue supplemental oxygen # history of nonobstructive coronary artery disease - continue aspirin and high-dose statin # hypertension - stable - continue home lisinopril DVT prophylaxis: Lovenox Quality Stroke Does the patient have a stroke diagnosis?: No VTE Prior VTE?: No VTE Risk Level:: Medical - moderate - high VTE Device Contraindication: Treatment Not Indicated VTE Drug Contraindication: N/A - Med Ordered
--- NOTE | 2022-01-17 21:53 | PC.NURSE ---
spoke w , wanted us to know that hearing aids are in a ziploc bag in coat pocket with a [id number].
[2022-01-17 22:00] VITALS: BP 93/57; PULSE 96; RESP 16; TEMP 36.9; O2SAT 95
[2022-01-17] MEDS: Enoxaparin Sodium 40 MG/0.4 ML SYRINGE SUBCUT (23:17)
[2022-01-17] MEDS: 0.9 % Sodium Chloride Flush 3 ML SYRINGE IVFLUSH (23:57)
[2022-01-18] VITALS (12 sets, daily range): BP systolic 112–157; BP diastolic 54–91; PULSE 72–98; RESP 18–20; TEMP 36.3–36.9; O2SAT 88–95; BMI 30.7; BMI 30.4
--- NOTE | 2022-01-18 06:41 | PC.NURSE ---
[place] [facility] [place] ACUTE DISTR[place]. PT IS VERY HARD OF HEARING AND DOES NOT HAVE HIS HEARING AIDES WITH HIM. ORIENTED TO UNIT AND UNIT ROUTINE. ADMISSION ASSESSMENT DONE. PT C/O PAIN LEFT SHOULDER AND NECK WHICH HE STATES IS CHRONIC FROM AN OLD SURGERY AND WAS GIVEN HYDROCODONE WITH GOOD EFFECT. PT WAS VERY TIRED ON ARRIVAL TO FLOOR AND ONCE HE WAS SETTLED AND RECEIVED PAIN MED, HE FELL ASLEEP AND SLEPT MOST OF NIGHT. MONITOR SHOWED NSR, RATE 70-80'S, OCC PAC NOTED. VITAL SIGNS STABLE. NO RESP DISTRESS. LUNGS CLEAR. O2 SAT 98-100% ON 4L. RLE IS REDDENED AROUND ANKLE AND LOWER LEG. IT IS ALSO WARM TO TOUCH MORE THAN LEFT LOWER EXTREMITY. BILAT LOWER LEG EDEMA 1+ NOTED.
[2022-01-18 07:25] LABS: MANUAL DIFF FLAG NO
[2022-01-18 07:30] LABS: Basophils Percent Auto 0.5 % (0-2); Eosinophils Absolute Auto 0.2 X10*3/uL (0.0-0.4); Eosinophils Percent Auto 2.1 % (0-4); Hemoglobin 14.8 g/dl (14.0-18.0); Imm Gran Abs Auto 0.02 X10*3/uL (0.00-0.03); Imm Gran Pct Auto 0.3 % (0.0-0.4); Lymphocytes Absolute Auto 2.1 X10*3/uL (1.2-4.9); Lymphocytes Percent Auto 28.3 % (20-40); Mean Corpuscular HGB Conc 32.9 g/dl (31.0-36.0); Mean Corpuscular Hemoglobin 33.9 pg (27.0-33.0); Mean Platelet Volume 9.3 fL (9.4-12.4); Monocytes Absolute Auto 0.7 X10*3/uL (0.1-1.2); Monocytes Percent Auto 9.5 % (2-11); Neutrophils Absolute Auto 4.5 x10*3/uL (2.0-8.3); Neutrophils Percent Auto 59.3 % (45-73); Platelet Count 276 X10*3/uL (160-400); Red Blood Count 4.37 X10*6/uL (4.60-5.80); Red Cell Distribution Width 14.8 % (11.0-16.0); White Blood Count 7.5 X10*3/uL (4.8-10.8)
[2022-01-18] MEDS: Sertraline HCL 25 MG TABLET PO (07:37)
[2022-01-18] MEDS: cephALEXin 500 MG CAPSULE PO ×3 (07:37→23:35)
[2022-01-18] MEDS: 0.9 % Sodium Chloride Flush 3 ML SYRINGE IVFLUSH ×3 (07:42→20:38)
[2022-01-18 07:50] LABS: Anion Gap 14 (12-20); Blood Urea Nitrogen 32 mg/dL (9-16); Calcium 8.7 mg/dL (8.4-10.2); Carbon Dioxide 23 mmol/L (22-29); Chloride 107 mmol/L (96-108); Creatinine Clr Calc Pharmacy 50.4; Estimated Glomerular Filt Rate 48; Glucose Random 94 mg/dL (60-115); Potassium 4.2 mmol/L (3.3-5.1); Sodium 140 mmol/L (135-145)
--- NOTE | 2022-01-18 08:34 | MHC.CM.PN ---
CM attempted to meet with Patient at bedside but he was sleeping soundly;CM spoke with /HCP/Karma and addressed IMM with her (original to be mailed certified letter to her and a copy placed on the chart that Patient can access at any time). Patient lives in a house with his /HCP/Karma, his Dmhlvt-us-Pye who has Down's Syndrome and his Son lives in the basement apartment. Patient's goal is to return home and resume [employer] for O2 and CM has initiated and will follow for dc planning. Patient received Moderna Covid vax X3 and his PCP is DR. Leeroy Zendejas.
[2022-01-18] MEDS: Fluticasone/Vilanterol 100/25 BLST.W.DEV 1 PUFF INHALE (09:51)
[2022-01-18] MEDS: Furosemide 40 MG/4 ML VIAL IVPUSH ×2 (10:21→20:36)
--- NOTE | 2022-01-18 10:27 | P.PNIM_ITS ---
Subjective Subjective Date of Service: 01/18/22 Interval History: the patient was seen and evaluated this morning Laying in bed, feels comfortable Lower extremity edema improving Denies any chest pain but still has some difficulty breathing No reported other overnight events. Systemic review: No fever, chills or weakness No chest pain, palpitation , edema dyspnea on ambulation No abdominal pain, nausea or vomiting No urinary symptoms No any rash or wounds Physical Exam Vital Signs: Vital Signs: Last Vital Signs Temp 97.4 F 01/18/22 07:55 Pulse 98 01/18/22 10:23 Resp 20 01/18/22 09:52 BP 146/76 H 01/18/22 10:23 Pulse Ox 90 L 01/18/22 07:55 Oxygen Flow Rate 4 01/17/22 15:42 BMI result Body Mass Index 30.4 Const: Other: Constitutional : Alert, oriented, not in distress Neck : Normal inspection, Supple Cardiovascular : RRR, S1 S2, +1 bilateral lower extremity edema Respiratory : fair bilateral air entry, basal bilateral fine crackles, wheezes or rhonchi, on 3 L of oxygen Gastrointestinal: soft, lax, Normal bowel sounds, Non tender Skin : Warm, Dry Neurological : Alert & oriented x3, No focal deficit Objective Data Active Medications Acetaminophen (Acetaminophen 325 Mg Tablet) 650 mg PO Q6H PRN PRN Reason: Pain, Mild (Pain Scale 1-3) Hydrocodone Bitart/Acetaminophen (Hydrocodone Bit/Acetam 10/325 Tablet) 1 tab PO 8XD PRN PRN Reason: Pain, Severe (Pain Scale 7-10) Last Admin: 01/18/22 01:35 Dose: 1 tab Documented by: KEATON Comments: unable to scan due to computer downtime Albuterol Sulfate (Albuterol Sulfate 90 Mcg 8 Gm Inhaler) 2 puff INHALE Q4H PRN PRN Reason: copd Albuterol/Ipratropium (Albuterol/Iprat 2.5/0.5mg 3 Ml Ampul.Neb) 3 ml INHALE Q4H PRN PRN Reason: wheezing Alprazolam (Alprazolam 0.25 Mg Tablet) 0.25 mg PO DAILY PRN PRN Reason: anxiety Aspirin (Aspirin Enteric Coated 81 Mg Tablet.) 81 mg PO DAILY@1800 [facility] Atorvastatin Calcium (Atorvastatin Calcium 10 Mg Tablet) 10 mg PO DAILY@1800 [facility] Cephalexin HCl (Cephalexin 500 Mg Capsule) 500 mg PO Q8H [facility] Last Admin: 01/18/22 07:37 Dose: 500 mg Documented by: RAINER Docusate Sodium (Docusate Sodium 100 Mg Capsule) 100 mg PO DAILY PRN PRN Reason: Constipation Enoxaparin Sodium (Enoxaparin Sodium 40 Mg/0.4 Ml Syringe) 40 mg SUBCUT Q24H [facility] Last Admin: 01/17/22 23:17 Dose: 40 mg Documented by: DAVID Fluticasone Propionate (Fluticasone Propionate Nasal 16 Gm [place]) 1 spray NOSTRIL-B BID [facility] Fluticasone/Vilanterol (Fluticasone/Vilanterol 100/25 Blst.W.Dev) 1 puff INHALE RDAILY [facility] Last Admin: 01/18/22 09:51 Dose: 1 puff Documented by: JENNIFER Furosemide (Furosemide 40 Mg/4 Ml Vial) 40 mg IVPUSH Q12H [facility]; Protocol Last Admin: 01/18/22 10:21 Dose: 40 mg Documented by: RAINER Lisinopril (Lisinopril 5 Mg Tablet) 5 mg PO DAILY@1800 [facility]; Protocol Non-Formulary Medication (Buprenorphine Hcl [Belbuca]) 1 strip PO BID [facility] Ondansetron HCl (Ondansetron Hcl 4 Mg/2 Ml Vial) 4 mg IVPUSH Q8H PRN PRN Reason: Nausea and Vomiting Sertraline HCl (Sertraline Hcl 25 Mg Tablet) 25 mg PO DAILY [facility] [place] Last Admin: 01/18/22 07:37 Dose: 25 mg Documented by: RAINER Sertraline HCl (Sertraline Hcl 50 Mg Tablet) 50 mg PO DAILY@1800 [facility] [place] Sodium Chloride (0.9 % Sodium Chloride Flush 3 Ml Syringe) 3 ml IVFLUSH QSHIFT [facility] Last Admin: 01/18/22 07:42 Dose: 3 ml Documented by: RAINER Tiotropium [place] (Tiotropium [place] 18 Mcg Cap.W.Dev) 1 puff INHALE RDAILY [facility] [place] Last Admin: 01/18/22 09:51 Dose: 1 puff Documented by: JENNIFER Labs CBC & Chem 7: 01/18/22 06:53 01/18/22 06:53 Labs: Laboratory Results - last 24 hr 01/17/22 01/17/22 01/17/22 17:13 17:13 17:13 MCV 102.8 H MCH 33.5 H MCHC 32.6 RDW 14.9 Plt Count 298 MPV 9.3 L Immature Gran % (Auto) 0.3 Neut % (Auto) 71.1 Lymph % (Auto) 19.7 L [place] % (Auto) 8.3 Eos % (Auto) 0.3 Baso % (Auto) 0.3 Lymph # (Auto) 2.0 [place] # (Auto) 0.8 Eos # (Auto) 0.0 Baso # (Auto) 0.0 Abs Immat Gran (auto) 0.03 Absolute Neuts (auto) 7.0 Absolute Nucleated RBC 0.000 Nucleated RBC % (auto) 0.0 PT INR APTT D-Dimer High Sensitivty Anion Gap 13 Estim Creat Clear Calc 53.6 Estimated GFR 52 Random Glucose 99 D Lactic Acid Uric Acid 6.4 Calcium 9.4 B-Natriuretic Peptide 1021 H COVID-19 (RANDA) COVID-[facility] Com 01/17/22 01/17/22 01/17/22 18:40 18:40 19:00 MCV MCH MCHC RDW Plt Count MPV Immature Gran % (Auto) Neut % (Auto) Lymph % (Auto) [place] % (Auto) Eos % (Auto) Baso % (Auto) Lymph # (Auto) [place] # (Auto) Eos # (Auto) Baso # (Auto) Abs Immat Gran (auto) Absolute Neuts (auto) Absolute Nucleated RBC Nucleated RBC % (auto) PT 15.5 H INR 1.4 H APTT 37.4 D-Dimer High Sensitivty 266 Anion Gap Estim Creat Clear Calc Estimated GFR Random Glucose Lactic Acid 1.9 Uric Acid Calcium B-Natriuretic Peptide COVID-19 (RANDA) Negative COVID-[facility] Com See Note 01/18/22 01/18/22 06:53 06:53 MCV 103.0 H MCH 33.9 H MCHC 32.9 RDW 14.8 Plt Count 276 MPV 9.3 L Immature Gran % (Auto) 0.3 Neut % (Auto) 59.3 Lymph % (Auto) 28.3 [place] % (Auto) 9.5 Eos % (Auto) 2.1 Baso % (Auto) 0.5 Lymph # (Auto) 2.1 [place] # (Auto) 0.7 Eos # (Auto) 0.2 Baso # (Auto) 0.0 Abs Immat Gran (auto) 0.02 Absolute Neuts (auto) 4.5 Absolute Nucleated RBC 0.000 Nucleated RBC % (auto) 0.0 PT INR APTT D-Dimer High Sensitivty Anion Gap 14 Estim Creat Clear Calc 50.4 Estimated GFR 48 Random Glucose 94 Lactic Acid Uric Acid Calcium 8.7 D B-Natriuretic Peptide COVID-19 (RANDA) COVID-19 Clin Com Assessment and Plan (1) CHF exacerbation: Status: Acute (2) Lower extremity edema: Status: Acute (3) Cellulitis of leg, right: Status: Acute Plan 77-year-old male with past medical history of COPD, CHF who presents to the hospital with CHF exacerbation # acute CHF exacerbation patient was off his Lasix for a couple of weeks due to ALFONSO continue IV Lasix low-sodium diet, daily weight, strict I&O recent echo showed EF 55% with severe right-sided dilation consult cardiology # cellulitis over right foot improved after 1 dose of IV antibiotic, could be just stasis dermatitis related continue p.o. antibiotic # hyperlipidemia continue statin # COPD not in exacerbation continue home inhaler continue supplemental oxygen # history of nonobstructive coronary artery disease continue aspirin and high-dose statin # hypertension continue home lisinopril DVT prophylaxis: Lovenox Quality Stroke Does the patient have a stroke diagnosis?: No VTE Prior VTE?: No VTE Risk Level:: Medical - moderate - high VTE Device Contraindication: Treatment Not Indicated VTE Drug Contraindication: N/A - Med Ordered
[2022-01-18] MEDS: Sertraline HCL 50 MG TABLET PO (18:00)
[2022-01-18] MEDS: Aspirin Enteric Coated 81 MG TABLET.DR PO (18:00)
[2022-01-18] MEDS: lisinopriL 5 MG TABLET PO (18:00)
[2022-01-18] MEDS: Atorvastatin Calcium 10 MG TABLET PO (18:01)
[2022-01-18] MEDS: Enoxaparin Sodium 40 MG/0.4 ML SYRINGE SUBCUT (20:36)
[2022-01-18] MEDS: Fluticasone Propionate Nasal 16 GM SPRAY 1 SPRAY NOSTRIL-B (20:40)
[2022-01-18] MEDS: ALPRAZolam 0.25 MG TABLET PO (23:35)
[2022-01-19 03:05] VITALS: BP 122/58; PULSE 80; RESP 20; TEMP 36.1; O2SAT 92
[2022-01-19 05:55] VITALS: BMI 29.2
[2022-01-19] MEDS: cephALEXin 500 MG CAPSULE PO (06:14)
[2022-01-19 07:08] LABS: Hematocrit 48.2 % (42.0-52.0); Hemoglobin 15.9 g/dl (14.0-18.0); Mean Corpuscular Hemoglobin 33.1 pg (27.0-33.0); Mean Corpuscular Volume 100.4 fL (80.0-98.0); Mean Platelet Volume 9.3 fL (9.4-12.4); Platelet Count 349 X10*3/uL (160-400); Red Cell Distribution Width 14.4 % (11.0-16.0); White Blood Count 12.5 X10*3/uL (4.8-10.8)
[2022-01-19 07:38] LABS: Anion Gap 17 (12-20); Blood Urea Nitrogen 37 mg/dL (9-16); Calcium 9.7 mg/dL (8.4-10.2); Carbon Dioxide 24 mmol/L (22-29); Chloride 102 mmol/L (96-108); Creatinine Clr Calc Pharmacy 45.3; Estimated Glomerular Filt Rate 44; Glucose Random 100 mg/dL (60-115); Potassium 3.6 mmol/L (3.3-5.1); Sodium 139 mmol/L (135-145)
[2022-01-19 07:54] VITALS: BP 146/79; PULSE 65; RESP 19; TEMP 37; O2SAT 93
[2022-01-19 08:32] VITALS: PULSE 74; RESP 19; O2SAT 93
[2022-01-19] MEDS: Fluticasone/Vilanterol 100/25 BLST.W.DEV 1 PUFF INHALE (08:32)
[2022-01-19] MEDS: Furosemide 40 MG/4 ML VIAL IVPUSH (08:37)
[2022-01-19] MEDS: Sertraline HCL 25 MG TABLET PO (08:37)
[2022-01-19] MEDS: Fluticasone Propionate Nasal 16 GM SPRAY 1 SPRAY NOSTRIL-B (08:38)
[2022-01-19] MEDS: 0.9 % Sodium Chloride Flush 3 ML SYRINGE IVFLUSH (08:38)
--- NOTE | 2022-01-19 11:07 | PM.DS ---
DS: Providers Provider Date of Service: 01/19/22 Date of admission: 01/17/22 21:41 Primary care physician: Leeroy Zendejas MD DS: Diagnosis Discharge Diagnosis (1) CHF exacerbation: Status: Acute (2) Lower extremity edema: Status: Acute (3) Cellulitis of leg, right: Status: Acute DS: Summary Hospital Course Hospital Course: Admission note HPI This 77-year-old male with past medical history of COPD on 3-4 L of oxygen at baseline, right-sided heart failure, hypertension, and depression who presents to the hospital with complaints of right leg swelling.? Patient reports that his legs are swelling about a week ago, associated with mild redness on the dorsum of his right foot.? Patient reports that his PCP took him off his Lasix for a couple of weeks due to worsening kidney function, but he was taking it again every other day for the past ? One week.? he has minimal cough, some sputum production, He reports dyspnea on exertion, orthopnea, PND, he denies any chest pain, no palpitations, no abdominal pain nausea or vomiting, no diarrhea constipation, and no urinary symptoms. pt had erythema on? the dorsum of the right foot, ED physician felt to be cellulitis,? patient was given 1 dose of IV antibiotics.? On my review of patient his reports that has significantly improved. On arrival to the ED patient hemodynamically stable satting 90% on 3 L of oxygen. Labs? reviewed are unremarkable,. venous duplex? is negative for DVT in the right lower extremity and chest x-ray shows unremarkable exam ?patient given IV antibiotics as well as IV Lasix and will be admitted for further management Hospital course Patient was admitted for treatment of heart failure exacerbation as he has been of Lasix for few weeks. Received IV Lasix with good response as edema and dyspnea improved significantly and he was able to ambulate on 3 L of oxygen with no reported shortness of breath. Noted to have cellulitis BS dermatitis in the right lower extremity treated with IV antibiotic with good response. To be discharged on Keflex to finish total of 5 days of antibiotics. Time Spent with Patient Time attestation: Total time spent providing and/or coordinating discharge services: Discharge coordination time: Greater than 30 minutes Quality: Stroke Does the patient have a stroke diagnosis?: No Physical Exam Vital Signs: Vital Signs: Last Vital Signs Temp 98.6 F 01/19/22 07:54 Pulse 74 02/25/22 08:32 Resp 19 01/19/22 08:32 BP 146/79 H 01/19/22 07:54 Pulse Ox 93 01/19/22 07:54 Oxygen Flow Rate 4 01/17/22 15:42 BMI result Body Mass Index 29.2 Const: Other: Constitutional : Alert, oriented, not in distress Neck : Normal inspection, Supple Cardiovascular : RRR, S1 S2, trace bilateral lower extremity edema Respiratory : fair bilateral air entry, no crackles, no wheezes or rhonchi, on 3 L of oxygen Gastrointestinal: soft, lax, Normal bowel sounds, Non tender Skin : Warm, Dry Neurological : Alert & oriented x3, No focal deficit DS: Data Data Completed and Pending Labs on day of discharge: Laboratory Results - last 24 hr 01/19/22 01/19/22 06:53 06:53 WBC 12.5 H RBC 4.80 Hgb 15.9 Hct 48.2 MCV 100.4 H MCH 33.1 H MCHC 33.0 RDW 14.4 Plt Count 349 D MPV 9.3 L Absolute Nucleated RBC 0.000 Nucleated RBC % (auto) 0.0 Sodium 139 Potassium 3.6 Chloride 102 Carbon Dioxide 24 Anion Gap 17 BUN 37 H Creatinine 1.56 H Estim Creat Clear Calc 45.3 Estimated GFR 44 Random Glucose 100 Calcium 9.7 D Preliminary micro results at discharge 01/17/22 19:00 Blood Culture - Preliminary Blood - Venous No growth after 24 hours. 01/17/22 18:40 Blood Culture - Preliminary Blood - Venous No growth after 24 hours. Discharge Plan Discharge Patient Disposition: Home, Self-Care Discharge Diagnosis: Heart failure exacerbation Cellulitis Referrals: Leeroy Zendejas MD [Primary Care Provider] - 1 Week Discharge Medications: New cephalexin 500 mg Capsule 500 mg PO Q8H 2 Days Qty: 6 0RF Continued Trelegy Ellipta 200-62.5-25 mcg blister with device 1 inh inhalation DAILY 30 Days Qty: 1 6RF ipratropium-albuterol 0.5 mg-3 mg(2.5 mg base)/3 mL solution for nebulization 3 ml inhalation Q4-6H PRN (Reason: wheezing) 30 Days Qty: 270 6RF atorvastatin 10 mg tablet 1 tab PO DAILY@1800 0RF alprazolam 0.25 mg tablet 1 tab PO DAILY PRN (Reason: anxiety) 0RF sertraline 50 mg tablet 1 tab PO DAILY@1800 0RF buprenorphine HCl [Belbuca] 300 mcg film 1 strip PO BID 0RF albuterol sulfate 90 mcg/actuation HFA aerosol inhaler 2 inh inhalation Q4H PRN (Reason: copd) 0RF hydrocodone-acetaminophen 10-325 mg tablet 1 tab PO 8XD PRN (Reason: Pain) 0RF sertraline 25 mg tablet 1 tab PO DAILY 0RF aspirin 81 mg tablet,delayed release (DR/EC) 81 mg PO DAILY@1800 0RF lisinopril 5 mg tablet 5 mg PO DAILY@1800 0RF furosemide [Lasix] 40 mg tablet 40 mg PO DAILY 30 Days Qty: 30 6RF Discharge Orders: Discharge Order (Routine); Ordered 01/19/22 Ordered By: Allen Kenyon Diet: advance to usual diet and low salt diet Activity on Discharge: As tolerated Stand Alone Forms: Patient Portal Discharge page Care Plan Goals: Read below Health Concerns: Read below Plan of Treatment: Read below Assessment: You were admitted to the hospital for treatment of heart failure exacerbation with IV Lasix with good response. You were noticed to have cellulitis in your right foot that was treated with antibiotics with good response as well. Monitor your weight at home and report any changes to PCP as it means your building up fluids Continue Keflex for 2 more days
[2022-01-19 11:22] VITALS: BP 106/56; PULSE 59; RESP 20; TEMP 36.7; O2SAT 89
--- NOTE | 2022-01-19 11:47 | MHC.CM.PN ---
PT CLEARED TO DC HOME TODAY. PER PTS , CHRISTAL ([phone]), SHE CANNOT DRIVE IN THE SNOW AND WOULD LIKE TRANSPORTATION ARRANGED. CM DISCUSSED TRANSPORT OPTIONS AND CHRISTAL REQUESTED A CHAIR VAN BE ARRANGED. [facility] TRANSPORT REQUESTED FOR 1300 HOURS [facility]
== END 2022-01-19 13:13 | disposition home or self-care (01) | DRG 291 ==
LOC: HO.ED 20:03 → HO.EDOVER 21:56 → HO.IMC 22:16
PROVIDERS: Admitting Provider Internal Medicine; Emergency Provider Internal Medicine; PCP Family Medicine; Visit Provider Student in an Organized Health Care Education/Training Program
DX: I11.0 Hypertensive heart disease with heart failure (principal); I50.33 Acute on chronic diastolic (congestive) heart failure; L03.115 Cellulitis of right lower limb; J44.9 Chronic obstructive pulmonary disease, unspecified; E78.5 Hyperlipidemia, unspecified; I50.813 Acute on chronic right heart failure; I25.10 Atherosclerotic heart disease of native coronary artery without angina pectoris; Z20.822 Contact with and (suspected) exposure to COVID-19; Z99.81 Dependence on supplemental oxygen; Z87.891 Personal history of nicotine dependence; Z79.51 Long term (current) use of inhaled steroids; Z79.82 Long term (current) use of aspirin; Z79.899 Other long term (current) drug therapy
CPT/HCPCS: 36415; 71045; 80048; 83605; 83880; 84484; 84550; 85025; 85027; 85379; 85610; 85730; 87040; 87635; 93005; 93971; 94640; 96365; 96375; 99285; J0690; J1650; J1940

== ENCOUNTER → 2022-05-21 14:37 | Outpatient (BNVA) | payer MEDICARE, SELFPAY | PROVIDERS: PCP Family Medicine; Visit Provider Internal Medicine Pulmonary Disease | DX: J44.9 Chronic obstructive pulmonary disease, unspecified (principal); Z99.81 Dependence on supplemental oxygen | CPT/HCPCS: 99212 ==